=== PATIENT | female | born 1940 | race Caucasian/White ===

== ENCOUNTER 2018-01-15 05:44 | Emergency (ER) | payer MEDICARE, OTHER ==
[~2018-01-15] VITALS: Ht 160 cm; Wt 63.5 kg
[~2018-01-15 05:44] MED LIST: CARV12.52 PO; FURO20TA4 PO; LOSA-22 PO; MULT-182 PO; POTA8TAB3 PO; WARF2TAB57 PO
--- NOTE | 2018-01-15 06:06 | NUR ---
PT AMBULATORY TO ER BED 11 C/O RIGHT ANKLE PAIN X 5 DAYS S/P GLF 5 DAYS AGO. PT AOX3 FRENCH SPEAKING, SON AT BEDSIDE TO TRANSLATE. RR EVEN AND UNLABORED. NO SOB NOTED. NAD NOTED. NO NVD AT THIS TIME. PT GOWNED AND PLACED ON MONITOR WAITING FOR MD BROWN.
--- NOTE | 2018-01-15 06:13 | NUR ---
DR. JAEGER AT BEDSIDE FOR EVAL.
--- NOTE | 2018-01-15 07:07 | NUR ---
CALLED RADIOLOGY FOR FOOT XR. NO RESPONSE AT THIS TIME.
--- NOTE | 2018-01-15 07:16 | NUR ---
REPORT GIVEN TO MAMTA YOO FOR RICKIE.
[2018-01-15 07:39] VITALS: BP 148/72
--- NOTE | 2018-01-15 07:40 | NUR ---
Patient discharged to home in stable condition. Written and verbal after care instructions given. Patient verbalizes understanding of instruction.
== END 2018-01-15 07:39 | disposition home or self-care (01) ==
LOC: ER 05:49
DX: L03.115 Cellulitis of right lower limb (principal); I10 Essential (primary) hypertension; I48.91 Unspecified atrial fibrillation; M20.11 Hallux valgus (acquired), right foot; M77.31 Calcaneal spur, right foot; Z79.01 Long term (current) use of anticoagulants
CPT/HCPCS: 73630; 99284; A4606; Z7610

== ENCOUNTER 2019-09-23 00:28 | Emergency (ER) | payer MEDICARE, MEDICAID ==
[~2019-09-23] VITALS: Ht 152.4 cm; Wt 63.5 kg
[2019-09-23 01:28] VITALS: BP 115/62
[2019-09-23] MEDS ORDERED: LACTULOSE 10 G/15 ML UDC (PYXIS) ONE (01:37)
--- NOTE | 2019-09-23 01:46 | NUR ---
Patient discharged to home in stable condition. Rx and Written and verbal after care instructions given. Patient verbalizes understanding of instruction.
[2019-09-23] MEDS ORDERED: LACTULOSE 10 G/15 ML UDC (PYXIS) PO ONE (02:00)
== END 2019-09-23 01:47 | disposition home or self-care (01) ==
LOC: ER 00:32
DX: K59.00 Constipation, unspecified (principal); I10 Essential (primary) hypertension; I48.91 Unspecified atrial fibrillation; Z79.01 Long term (current) use of anticoagulants; Z79.899 Other long term (current) drug therapy
CPT/HCPCS: 74018

== ENCOUNTER 2019-09-29 23:02 | Emergency (ER) | payer MEDICARE, MEDICAID ==
[~2019-09-29] VITALS: Ht 160 cm; Wt 63.5 kg
--- NOTE | 2019-09-29 23:23 | NUR ---
XRAY AT BEDSIDE
[2019-09-29] MEDS ORDERED: LACTULOSE 10 G/15 ML UDC (PYXIS) ONE (23:24)
--- NOTE | 2019-09-29 23:25 | NUR ---
PT CAME IN W/ SON C/O CONSTIPATION 5x DAYS AFTER BEING PRESCRIBED DOCUSATE SODIUM. PT IS ABLE TO EAT, BUT VOMITED YESTERDAY 1X. SON AT BEDSIDE. AAOX4. NAD. NO SOB. CONNECTED TO MONITOR.
[2019-09-29] MEDS ORDERED: LACTULOSE 10 G/15 ML UDC (PYXIS) PO ONE (23:30)
--- NOTE | 2019-09-30 00:23 | NUR ---
PRESCRIPTION GIVEN TO PATIENT AND EXPLAINED TO PATIENT AND SON.
--- NOTE | 2019-09-30 00:28 | NUR ---
Patient discharged to home in stable condition. Written and verbal after care instructions given. Patient verbalizes understanding of instruction.
[2019-09-30 00:31] VITALS: BP 123/83
== END 2019-09-30 00:36 | disposition home or self-care (01) ==
LOC: ER 23:09
DX: K59.00 Constipation, unspecified (principal); I10 Essential (primary) hypertension; I48.91 Unspecified atrial fibrillation; Z79.899 Other long term (current) drug therapy; Z79.01 Long term (current) use of anticoagulants
CPT/HCPCS: 74018

== ENCOUNTER 2019-10-18 03:52 | Emergency (ER) | payer MEDICARE, MEDICAID ==
[~2019-10-18] VITALS: Ht 149.9 cm; Wt 63.5 kg
--- NOTE | 2019-10-18 04:11 | NUR ---
BIBSON C/C R HEAD LAC S/P GLF, DENIES LOC, BLEEDING NOTED, PT TAKEN TO CT
[2019-10-18] MEDS ORDERED: LIDOCAINE 1%-EPI 1:100,000 20 ML VIAL ONE (05:16)
--- NOTE | 2019-10-18 05:49 | NUR ---
Patient discharged to home in stable condition. Written and verbal after care instructions given. Patient verbalizes understanding of instruction.
[2019-10-18 05:50] VITALS: BP 126/64
== END 2019-10-18 05:50 | disposition home or self-care (01) ==
LOC: ER 03:52
DX: S05.41XA Penetrating wound of orbit with or without foreign body, right eye, initial encounter (principal); S09.8XXA Other specified injuries of head, initial encounter; I10 Essential (primary) hypertension; I48.91 Unspecified atrial fibrillation; Z98.890 Other specified postprocedural states; Z79.899 Other long term (current) drug therapy; Z79.01 Long term (current) use of anticoagulants; W07.XXXA Fall from chair, initial encounter; Y93.89 Activity, other specified; Y92.89 Other specified places as the place of occurrence of the external cause; Y99.8 Other external cause status
CPT/HCPCS: 12013; 70450; 99284; A6403; J3490

== ENCOUNTER 2019-10-23 22:14 | Emergency (ER) | payer MEDICARE, OTHER, MEDICAID ==
[~2019-10-23] VITALS: Ht 160 cm; Wt 62.1 kg
[2019-10-23 22:24] VITALS: BP 153/78
== END 2019-10-23 23:15 | disposition home or self-care (01) ==
LOC: ER 22:16
DX: S01.81XD Laceration without foreign body of other part of head, subsequent encounter (principal); I48.91 Unspecified atrial fibrillation; I10 Essential (primary) hypertension; Z98.890 Other specified postprocedural states; Z79.01 Long term (current) use of anticoagulants; Z79.899 Other long term (current) drug therapy; X58.XXXD Exposure to other specified factors, subsequent encounter

== ENCOUNTER 2019-11-17 22:00 | Inpatient (IN) | payer MEDICARE, MEDICAID ==
[~2019-11-17] VITALS: Ht 160 cm; Wt 72.1 kg
[2019-11-17] MEDS ORDERED: hydrOXYzine HCL INJ 50 MG/ML VIAL IM ONE (22:30)
--- NOTE | 2019-11-17 22:40 | NUR ---
BIBF. C/O "B L E SWELING. +ITCH. +PAIN"-SOB AOX4. VSS TO ER BED 1, TO BE SEEN BY
[2019-11-17 22:46] LABS: BASOPHILS # (AUTO) 0.1 /CMM (0.0-0.2); BASOPHILS % (AUTO) 1.3 % (0.0-2.0); EOSINOPHILS % (AUTO) 1.5 % (0.0-6.0); HEMATOCRIT 21 % (33-45); LYMPHOCYTES # (AUTO) 0.7 /CMM (0.8-4.8); LYMPHOCYTES % (AUTO) 10.1 % (20.0-44.0); MEAN CORPUSCULAR HGB CONC 30 g/dl (31.0-36.0); MEAN CORPUSCULAR VOLUME 67 fL (82-100); MONOCYTES # (AUTO) 0.7 /CMM (0.1-1.30); MONOCYTES % (AUTO) 10.3 % (2.0-12.0); NEUTROPHILS # (AUTO) 5.4 /CMM (1.8-8.9); NEUTROPHILS % (AUTO) 76.8 % (43.0-81.0); PLATELET COUNT (AUTO) 333 /CMM (150-450); RED BLOOD CELL COUNT(AUTO) 3.12 MIL/uL (4.0-5.2)
[2019-11-17] MEDS ORDERED: hydrOXYzine 10 MG TABLET ONE (22:49)
[2019-11-17 22:50] LABS: HEMOGLOBIN 6.3 g/dL (11.5-14.8)
[2019-11-17 22:54] LABS: CALCIUM, SERUM 9.6 mg/dL (8.5-10.1); CARBON DIOXIDE 35 mmol/L (21-32); CHLORIDE 102 mmol/L (98-107); CREATININE 1.7 mg/dL (0.6-1.3); GLUCOSE 125 mg/dL (74-106); POTASSIUM 2.9 mmol/L (3.5-5.1); SODIUM SERUM 144 mmol/L (136-145); UREA NITROGEN, BLOOD 50 mg/dL (7-18)
[2019-11-17] MEDS ORDERED: hydrOXYzine 10 MG TABLET PO ONE (23:00)
[2019-11-17 23:06] LABS: ALANINE AMINOTRANSFERASE 13 U/L (12-78); ALBUMIN 2.9 g/dL (3.4-5.0); ALKALINE PHOSPHATASE 68 U/L (46-116); ASPARTATE AMINOTRANSFERASE 19 U/L (15-37); B-TYPE NATRIURETIC PEPTIDE 4480 PG/ML (0-125); BILIRUBIN,DIRECT 0.1 mg/dL (0.0-0.2); BILIRUBIN,TOTAL 0.3 mg/dL (0.2-1.0); TOTAL PROTEIN, SERUM 6.5 g/dL (6.4-8.2)
[2019-11-17] MEDS ORDERED: MAGNESIUM HYDROXIDE 30 ML UDC PO PRN (23:30)
[2019-11-17] MEDS ORDERED: HYDROCODONE/APAP 5/325MG 1 EACH TABLET PO PRN (23:30)
[2019-11-17] MEDS ORDERED: ONDANSETRON HCL/PF 4 MG/2 ML VIAL IVP PRN (23:30)
[2019-11-17] MEDS ORDERED: MAG HYDROX/AL HYDROX/SIMETH 30 ML UDC PO PRN (23:30)
[2019-11-17] MEDS ORDERED: PANTOPRAZOLE 40 MG VIAL IV ONE (23:30)
[2019-11-17] MEDS ORDERED: IV NS 0.9% 1,000 ML IV PRN (23:30)
[2019-11-17] MEDS ORDERED: ZOLPIDEM TARTRATE 5 MG TABLET PO PRN (23:30)
[2019-11-17] MEDS ORDERED: Z GUARD REMEDY 2 OZ OINT TP PRN (23:30)
[2019-11-17 23:58] LABS: IRON, SERUM 16 ug/dl (50-175); TOTAL IRON BINDING CAPACITY 440 ug/dl (250-450)
[2019-11-18] VITALS (10 sets, daily range): BP systolic 110–168; BP diastolic 56–76
[2019-11-18] MEDS ORDERED: diphenhydrAMINE HCL 50 MG/ML VIAL ONE
[2019-11-18] MEDS ORDERED: LORAZEPAM INJ 2 MG/ML VIAL ONE (00:54)
[2019-11-18 00:58] LABS: EOSINOPHILS % (MANUAL) 2 % (0-4); LYMPHOCYTES % (MANUAL) 10 % (16-48); MONOCYTES % (MANUAL) 8 % (0-11.0); NEUTROPHILS % (MANUAL) 80 (42-76)
[2019-11-18] MEDS ORDERED: LORAZEPAM INJ 2 MG/ML VIAL IV PRN (01:00)
--- NOTE | 2019-11-18 01:15 | NUR ---
SAMPLE PREP TECHNICIANSVP RESEARCH & EBUSINESS OPERATIONS NOTES RECEIVED FROM ER THIS 79 Y.O. FEMALE,ALERT,ORIENTED X3,TAMAZIGHT SPEAKING,ACCOMPANIED BY SON MINDY,WITH CHIEF COMPLAINTS OF SOB,ITCHINESS,SWELLING WITH SLIGHT REDNESS ON BOTH LOWER EXTREMITIES.BOTH LOWER LEG ELEVATED ON PILLOWS.DIAGNOSIS OF SEVERE ANEMIA,WITH H/H 6.3.WITH ORDER TO TRANSFUSE 1 UNIT OF PRBC.CONSENT SIGNED BY SON MINDY.FALL PRECAUTION OBSERVED,CALL LIGHT IN REACH,NEEDS ANTICIPATED.
--- NOTE | 2019-11-18 01:19 | NUR ---
PT TRANSFERED TO 308-1
[2019-11-18] MEDS ORDERED: FUROSEMIDE 40 MG/4 ML VIAL IV SCH (01:30)
--- NOTE | 2019-11-18 01:51 | NUR ---
MS RN NOTES STARTED ON IVF NS AT 50ML/HR RATE ORDERED.
--- NOTE | 2019-11-18 01:51 | NUR ---
FILTER CHANGING TECHNICIAN NOTES AFIB 66 ON TELE MONITOR.WITH KNOWN HX OF AFIB CHF,ABLATION 2012
[2019-11-18] MEDS ORDERED: PANTOPRAZOLE 40 MG VIAL ONE (01:55)
--- NOTE | 2019-11-18 01:56 | NUR ---
POULTRY CULLER NOTES STARTED ON PROTONIX 40MG IV ORDERED
--- NOTE | 2019-11-18 02:07 | NUR ---
THIRD MATE NOTES STARTED ON LASIX 40MG IV FOR EDEMA,CHF
--- NOTE | 2019-11-18 02:33 | NUR ---
ASSISTANT DIRECTOR OF FINANCIAL AID NOTES STARTED WITH BLOOD TRANSFUSION 1 UNIT OF PRBC 308ML AT 75ML/HR RATE TO START WITH.
[2019-11-18] MEDS ORDERED: diphenhydrAMINE HCL 25 MG CAPSULE PO PRN (03:30)
--- NOTE | 2019-11-18 03:56 | NUR ---
CHANNEL LIP WETTER NOTES C/O ITCHINESS,MEDICATED WITH BENADRYL 25MG PO ORDERED.
[2019-11-18] MEDS ORDERED: ALLO100T PO (05:02)
[2019-11-18] MEDS ORDERED: WARF3TAB59 PO (05:02)
[2019-11-18] MEDS ORDERED: LOSA25TA27 PO (05:02)
[2019-11-18] MEDS ORDERED: FURO-144 PO (05:02)
[2019-11-18 06:24] LABS: BASOPHILS # (AUTO) 0.1 /CMM (0.0-0.2); BASOPHILS % (AUTO) 0.8 % (0.0-2.0); EOSINOPHILS % (AUTO) 1.4 % (0.0-6.0); HEMATOCRIT 22 % (33-45); LYMPHOCYTES # (AUTO) 0.6 /CMM (0.8-4.8); LYMPHOCYTES % (AUTO) 8.6 % (20.0-44.0); MEAN CORPUSCULAR HGB CONC 31 g/dl (31.0-36.0); MEAN CORPUSCULAR VOLUME 69 fL (82-100); MONOCYTES # (AUTO) 0.7 /CMM (0.1-1.30); MONOCYTES % (AUTO) 10.1 % (2.0-12.0); NEUTROPHILS # (AUTO) 5.8 /CMM (1.8-8.9); NEUTROPHILS % (AUTO) 79.1 % (43.0-81.0); PLATELET COUNT (AUTO) 297 /CMM (150-450); RED BLOOD CELL COUNT(AUTO) 3.25 MIL/uL (4.0-5.2); WHITE BLOOD COUNT (AUTO) 7.4 K/uL (4.3-11.0)
--- NOTE | 2019-11-18 06:31 | NUR ---
TAG PRESS OPERATOR NOTES SLEEPING AT THIS TIME,BLOOD TRANSFUSION COMPLETED.NO ADVERSE SIDE EFFECTS NOTED,NO SOB.ORTHOSTATIC VITAL SIGN TAKEN ONLY SUPINE AND SITTING.UNABLE TO STAND UP.IVF NS AT 50ML/HR RATE INFUSING AT THIS TIME.KEPT BILATERAL; LOWER EXTREMITIES ELEVATED.IN NO ACUTE DISTRESS.WILL ENDORSE TO DAY NURSE FOR RICKIE.
--- NOTE | 2019-11-18 06:40 | NUR ---
CLINICAL INFORMATION SYSTEMS DIRECTOR NOTES REPORTED BY CHANDANA FROM BLOOD BANK,LATEST H/H 7.0,HOSPITALIST FABY SY MADE AWARE,AWAITING TO CALL BACK.
[2019-11-18 06:41] LABS: CHOLESTEROL 112 mg/dL (<200); HDL CHOLESTEROL 69 mg/dL (40-60); LDL 39 mg/dL (0-99); TRIGLYCERIDES 51 mg/dL (30-150)
[2019-11-18 06:59] LABS: CALCIUM, SERUM 9.7 mg/dL (8.5-10.1); CARBON DIOXIDE 29 mmol/L (21-32); CHLORIDE 102 mmol/L (98-107); CREATININE 1.6 mg/dL (0.6-1.3); GLUCOSE 113 mg/dL (74-106); MAGNESIUM 2.3 mg/dL (1.8-2.4); SODIUM SERUM 145 mmol/L (136-145); UREA NITROGEN, BLOOD 48 mg/dL (7-18)
[2019-11-18 07:19] LABS: POTASSIUM 2.6 mmol/L (3.5-5.1)
--- NOTE | 2019-11-18 08:00 | NUR ---
TELE/RN NOTES RECEIVED PATIENT ALERT AND ORIENTED X2 RESTING IN BED COMFORTABLY. DENIES PAIN AT THIS TIME. NO SHORTNESS OF BREATH NOTED. HL AT LEFT FA #20 PATENT AND INTACT. WITH IVF OF NS 1L AT 50ML/L INFUSING WELL. WILL CONTINUE TO MONITOR.
[2019-11-18] MEDS: POTASSIUM CHLORIDE 20 MEQ TAB.PRT.SR PO SCH ×3 (08:21→10:39)
[2019-11-18] MEDS: PANTOPRAZOLE 40 MG TABLET.DR PO SCH (08:21)
--- NOTE | 2019-11-18 08:58 | NUR ---
TELE/RN NOTES POST VOIDAL BLADDER SCAN [address] MARLEY IS MADE AWARE AND WAITING FOR ORDER.
--- NOTE | 2019-11-18 11:01 | NUR ---
TELE/RN NOTES RECEIVED ORDER FROM DR. MARLEY OF AARON CATHETER INSERTION 1000ML CLEAR YELLOW URINE IS DRAINED.
[2019-11-18 12:05] LABS: EOSINOPHILS % (MANUAL) 1 % (0-4); LYMPHOCYTES % (MANUAL) 14 % (16-48); MONOCYTES % (MANUAL) 10 % (0-11.0); NEUTROPHILS % (MANUAL) 75 (42-76)
[2019-11-18] MEDS: CEFTRIAXONE 1 G in IV D5W 50 ML IV SCH (13:50)
[2019-11-18] MEDS: SOD FERRIC GLUC 125 MG in IV NS 0.9% 100 ML IV SCH (15:44)
[2019-11-18 15:45] LABS: CALCIUM, SERUM 9.2 mg/dL (8.5-10.1); CARBON DIOXIDE 30 mmol/L (21-32); CHLORIDE 104 mmol/L (98-107); CREATININE 1.7 mg/dL (0.6-1.3); GLUCOSE 117 mg/dL (74-106); POTASSIUM 3.1 mmol/L (3.5-5.1); SODIUM SERUM 145 mmol/L (136-145); UREA NITROGEN, BLOOD 44 mg/dL (7-18)
--- NOTE | 2019-11-18 17:20 | NUR ---
TELE/RN NOTE DR GARAY IS MADE AWARE TO SEE THE PATIENT PER DR MARLEY.
--- NOTE | 2019-11-18 18:49 | NUR ---
TELE/RN CLOSING NOTES PATIENT IS RESTING IN BED COMFORTABLY. DENIES PAIN AT THIS TIME. NO APPARENT RESPIRATORY DISTRESS NOTED. HL AT LEFT FOREARM GAUGE 20 PATENT AND INTACT. KEPT PATIENT CLEAN AND DRY .BED IS IN LOW POSITION SIDE RAILS UP X 2. ADMINISTERED ALL DUE MEDS.CALL LIGHTS WITHIN REACH. WILL ENDORSED TO STEEL MOLDER.
--- NOTE | 2019-11-18 20:00 | NUR ---
TELE/RN OPENING NOTES RECEIVED PATIENT IN BED RESTING COMFORTABLY, RESPIRATIONS EVEN AND UNLABORED, ABLE TO HAVE GOOD EYE CONTACT, SKIN WARM TO TOUCH, FAMILY INVOLVE, TELE SR TO AFIB, BLE SWOLLEN WITH AARON DRAINING YELLOW COLORED URINE DUE TO URINARY RETENTION, REQUIRE ASSISTANCE, LEFT FOREARM GAUGE 20 POTASSIUM WAS REPLACED, AND TO COLLECT OB STOOL , WITH ORDER TO GIVE MOM . WILL FOLLOW UP BED LOCKED, CALL LIGHTS WITHIN REACH. WILL MONITOR.
--- NOTE | 2019-11-18 23:11 | NUR ---
tele/rn notes md aware about hgb level of 7 to check and monitor occult blood, mionitor any bleeding for now and give MOM.
[2019-11-19] VITALS (7 sets, daily range): BP systolic 122–152; BP diastolic 56–80
[2019-11-19] MEDS: ACETAMINOPHEN 325 MG TABLET PO PRN (02:38)
--- NOTE | 2019-11-19 02:59 | NUR ---
TELE/RN NOTES PATIENT WITH LOW GRADE FEVER OF 99.1 DEG F, TYLENOL 650 MG PO GIVEN, WITH ORDER FOR MOM FOR BOWEL MANAGEMENT AND TO COLLECT OCCULT STOOL.MONITOIRNG FOR ANY S/S OF BLEEDING.
[2019-11-19 06:19] LABS: BASOPHILS # (AUTO) 0.1 /CMM (0.0-0.2); BASOPHILS % (AUTO) 1.5 % (0.0-2.0); EOSINOPHILS % (AUTO) 2.3 % (0.0-6.0); HEMATOCRIT 24 % (33-45); HEMOGLOBIN 7.4 g/dL (11.5-14.8); LYMPHOCYTES % (AUTO) 12.3 % (20.0-44.0); MEAN CORPUSCULAR HGB CONC 31 g/dl (31.0-36.0); MEAN CORPUSCULAR VOLUME 69 fL (82-100); MONOCYTES # (AUTO) 0.7 /CMM (0.1-1.30); MONOCYTES % (AUTO) 8.5 % (2.0-12.0); NEUTROPHILS # (AUTO) 6.1 /CMM (1.8-8.9); NEUTROPHILS % (AUTO) 75.4 % (43.0-81.0); PLATELET COUNT (AUTO) 295 /CMM (150-450); WHITE BLOOD COUNT (AUTO) 8.1 K/uL (4.3-11.0)
--- NOTE | 2019-11-19 06:24 | NUR ---
308-1 TELE/RN PATIENT ABLE TO SLEEP DURING THE NIGHT, REPOSITIONED AND TURNED, MONITORED FOR ANY S/S OF BLEEDING. SKIN WARM TO TOUCH, IV SITE ON LFA PATENT. KEPT COMFORTABLE.
[2019-11-19 06:30] LABS: CALCIUM, SERUM 9.2 mg/dL (8.5-10.1); CARBON DIOXIDE 31 mmol/L (21-32); CHLORIDE 104 mmol/L (98-107); CREATININE 1.6 mg/dL (0.6-1.3); GLUCOSE 108 mg/dL (74-106); MAGNESIUM 2.2 mg/dL (1.8-2.4); PHOSPHORUS 2.8 mg/dL (2.5-4.9); POTASSIUM 3.5 mmol/L (3.5-5.1); SODIUM SERUM 144 mmol/L (136-145); UREA NITROGEN, BLOOD 42 mg/dL (7-18)
--- NOTE | 2019-11-19 08:07 | NUR ---
TELE/RN OPENING NOTES RECEIVE PATIENT RESTING IN BED COMFORTABLY. DENIES PAIN AT THIS TIME. NO APPARENT RESPIRATORY DISTRESS NOTED. ON TELE MONITOR IN PLACE WITH READING OF AFIB 72. HL AT LEFT FOREARM GAUGE 20 PATENT AND INTACT.BED IS IN LOW POSITION SIDE RAILS UP X 2.CALL LIGHTS WITHIN REACH. WILL CONTINUE TO MONITOR.
[2019-11-19] MEDS: PANTOPRAZOLE 40 MG TABLET.DR PO SCH (08:44)
[2019-11-19 12:56] LABS: OCCULT BLOOD STOOL NEGATIVE (NEGATIVE)
[2019-11-19] MEDS: CEFTRIAXONE 1 G in IV D5W 50 ML IV SCH ×2 (13:05→14:17)
[2019-11-19] MEDS: SOD FERRIC GLUC 125 MG in IV NS 0.9% 100 ML IV SCH (14:25)
--- NOTE | 2019-11-19 18:57 | NUR ---
308 MS RN CLOSING NOTES PATIENT IN BED RESTING AT MODERATE HIGH BACKREST POSITION. A/O X3. ABLE TO MAKE NEEDS KNOWN. ON PRN SUPPLEMENTAL 02 VIA N/C AT 2LPM, TOLERATING WELL WITH NO SOB NOTED AT THIS TIME. IV SL ON LFA G# PATENT, INTACT AND FLUSHES WELL. AARON IN PLACE AND ACTIVELY DRAININGCLEAR YELOW URINE OURPUT AARON CARE DONE. KEPT PATIENT CLEAN AND DRY. ALL NEEDS AN CARE ATTENDED WELL. BED IS IN LOW POSITION, SIDE RAILS UP X 2. CALL LIGHTS WITHIN REACH. WILL ENDORSED TO PHLEBOTOMY PROGRAM COORDINATOR NURSE FOR RICKIE
--- NOTE | 2019-11-19 19:30 | NUR ---
MS RN OPENING NOTES PATIENT SLEEPING UPON ARRIVAL, EASY TO AWAKEN. A/O X 4. ON 2L NC. NO S/S OF ACUTE RESPIRATORY DISTRESS AND NO COMPLAINTS OF PAIN AT THIS TIME. AARON CATH PRESENT WITH 100 CC URINE, CLEAR & YELLOW. IV PRESENT ON LEFT FOREARM, SIZE 20, INTACT & PATENT, HEP LOCKED. BED LOCKED, SEMI-LEVINE'S POSITION, SIDE RAILS X2, CALL LIGHT WITHIN REACH. WILL CONTINUE TO MONITOR.
[2019-11-20] VITALS (7 sets, daily range): BP systolic 125–167; BP diastolic 60–80
[2019-11-20] MEDS ORDERED: FUROSEMIDE 40 MG/4 ML VIAL IV ONE (01:30)
[2019-11-20 06:54] LABS: BASOPHILS # (AUTO) 0.1 /CMM (0.0-0.2); BASOPHILS % (AUTO) 0.7 % (0.0-2.0); EOSINOPHILS % (AUTO) 2.8 % (0.0-6.0); HEMATOCRIT 23 % (33-45); LYMPHOCYTES # (AUTO) 0.8 /CMM (0.8-4.8); LYMPHOCYTES % (AUTO) 9.4 % (20.0-44.0); MEAN CORPUSCULAR HGB CONC 30 g/dl (31.0-36.0); MEAN CORPUSCULAR VOLUME 70 fL (82-100); MONOCYTES # (AUTO) 0.8 /CMM (0.1-1.30); MONOCYTES % (AUTO) 8.8 % (2.0-12.0); NEUTROPHILS # (AUTO) 6.8 /CMM (1.8-8.9); NEUTROPHILS % (AUTO) 78.3 % (43.0-81.0); PLATELET COUNT (AUTO) 267 /CMM (150-450); RED BLOOD CELL COUNT(AUTO) 3.26 MIL/uL (4.0-5.2); WHITE BLOOD COUNT (AUTO) 8.6 K/uL (4.3-11.0)
[2019-11-20 07:04] LABS: HEMOGLOBIN 6.9 g/dL (11.5-14.8)
--- NOTE | 2019-11-20 07:05 | NUR ---
MS RN NOTES CRITICAL LAB VALUE RECEIVED FROM CAROL HARPER. YOSSI NOTIFIED OF LAB VALUES.
[2019-11-20 07:08] LABS: CALCIUM, SERUM 9.1 mg/dL (8.5-10.1); CREATININE 1.3 mg/dL (0.6-1.3); MAGNESIUM 2.3 mg/dL (1.8-2.4); PHOSPHORUS 2.8 mg/dL (2.5-4.9); POTASSIUM 3.5 mmol/L (3.5-5.1)
--- NOTE | 2019-11-20 07:43 | NUR ---
MS RN NOTES PATIENT SLEEPING IN BED, EASY TO AWAKEN. A/O X 4. ON 2L NC. NO S/S OF ACUTE RESPIRATORY DISTRESS AND NO COMPLAINTS OF PAIN AT THIS TIME. IV PRESENT ON LEFT FA, SIZE 20, INTACT & PATENT, HEP LOCKED. AARON CATH PRESENT WITH 200 CC OF URINE, CLEAR AND YELLOW. BED LOCKED, SEMI-LEVINE'S POSITION, SIDE RAILS X2, CALL LIGHT WITHIN REACH. WILL ENDORSE TO DAY SHIFT NURSE TO FOLLOW PLAN OF CARE.
[2019-11-20 08:53] LABS: EOSINOPHILS % (MANUAL) 2 % (0-4); LYMPHOCYTES % (MANUAL) 10 % (16-48); MONOCYTES % (MANUAL) 5 % (0-11.0); NEUTROPHILS % (MANUAL) 83 (42-76)
[2019-11-20] MEDS: PANTOPRAZOLE 40 MG TABLET.DR PO SCH (09:50)
[2019-11-20 11:28] LABS: ABG OXYGEN SATURATION 93.6 % (92.0-98.5); ABG PCO2 40.9 mmHg (35.0-45.0); ABG PH 7.482 (7.350-7.450); ABG PO2 69.1 mmHg (75.0-100.0); AaDO2 82.3 mmHg; COHb 0.6 % (0.5-1.5); MetHb 0.4 % (0.0-1.5); O2Hb 92.7 % (94.0-97.0); SITE, ABG Left Radial
[2019-11-20] MEDS: ACETAMINOPHEN 325 MG TABLET PO PRN (13:45)
[2019-11-20 14:08] LABS: PTH, INTACT 58 pg/mL (15-65)
[2019-11-20] MEDS: CEFTRIAXONE 1 G in IV D5W 50 ML IV SCH (16:56)
--- NOTE | 2019-11-20 18:00 | NUR ---
abg's done and dr. walton aware of results.ua sent as per orders.had one unit of blood tolerated well.iv lt. arm infiltrated,removed and restarted rt forearm angio#20.
[2019-11-20] MEDS: SOD FERRIC GLUC 125 MG in IV NS 0.9% 100 ML IV SCH (18:08)
[2019-11-20] MEDS: FUROSEMIDE 40 MG TABLET PO SCH (18:14)
--- NOTE | 2019-11-20 18:30 | NUR ---
dr. guerrero in and gave orders for egd tomorrow.pt. to be npo after breakfast.son in to visit most of the day.
--- NOTE | 2019-11-20 19:30 | NUR ---
MS RN OPENING NOTES PATIENT AWAKE IN BED UPON ARRIVAL. FAMILY MEMBER AT THE BEDSIDE. A/O X4. ON 2L NC. NO S/S OF ACUTE RESPIRATORY DISTRESS AND NO COMPLAINTS OF PAIN AT THIS TIME. AARON CATH PRESENT WITH 350 CC URINE PRESENT, CLEAR & YELLOW. IV ON RIGHT FOREARM, SIZE 20, INTACT & PATENT. BED LOCKED, SEMI-LEVINE'S POSITION, SIDE RAILS X2, CALL LIGHT WITHIN REACH. WILL CONTINUE TO MONITOR.
[2019-11-20 19:52] LABS: BILIRUBIN,URINE NEGATIVE (NEGATIVE); BLOOD, URINE LARGE Ery/uL (NEGATIVE); COLOR,URINE YELLOW (YELLOW); KETONES,URINE NEGATIVE (NEGATIVE); LEUKOCYTE ESTERASE ,URINE TRACE (NEGATIVE); NITRITE, URINE NEGATIVE (NEGATIVE); PH,URINE 7.5 (5.0-8.0); PROTEIN,URINE TRACE mg/dl (NEGATIVE); UGLUCOSE NEGATIVE (NEGATIVE); UROBILINOGEN,URINE 0.2 EU/dL (0.2)
[2019-11-20 20:03] LABS: CREATININE, URINE 95.2 MG/DL (30.0-125.0)
[2019-11-20 20:12] LABS: APPEARANCE,URINE HAZY (CLEAR)
[2019-11-20 20:13] LABS: BACTERIA,URINE Few /HPF (None Seen); RBC,URINE 21-50 /HPF (0-2); SQUAMOUS EPITHELIAL CELL,UR Few /HPF (None Seen)
[2019-11-20] MEDS: PANTOPRAZOLE 40 MG VIAL IV SCH (20:29)
[2019-11-20 20:48] LABS: EOSINOPHIL,URINE None Seen
--- NOTE | 2019-11-20 22:37 | NUR ---
MS RN NOTES SPOKE TO PATIENT'S SON, MINDY, ABOUT CONSENT FORM FOR EGD AT 2230. STATED THAT HE IS GOING TO SIGN THE CONSENT TOMORROW AFTERNOON.
[2019-11-21 06:52] LABS: BASOPHILS # (AUTO) 0.1 /CMM (0.0-0.2); BASOPHILS % (AUTO) 0.6 % (0.0-2.0); HEMATOCRIT 27 % (33-45); HEMOGLOBIN 8.2 g/dL (11.5-14.8); LYMPHOCYTES # (AUTO) 0.9 /CMM (0.8-4.8); LYMPHOCYTES % (AUTO) 9.9 % (20.0-44.0); MEAN CORPUSCULAR HGB CONC 31 g/dl (31.0-36.0); MEAN CORPUSCULAR VOLUME 72 fL (82-100); MONOCYTES # (AUTO) 0.8 /CMM (0.1-1.30); MONOCYTES % (AUTO) 9.1 % (2.0-12.0); NEUTROPHILS % (AUTO) 77.4 % (43.0-81.0); PLATELET COUNT (AUTO) 271 /CMM (150-450); RED BLOOD CELL COUNT(AUTO) 3.69 MIL/uL (4.0-5.2)
--- NOTE | 2019-11-21 07:17 | NUR ---
MS RN CLOSING NOTES PATIENT SLEEPING IN BED, EASY TO AWAKEN. A/O X4. ON 2L NC. NO S/S OF SOB OR COMPLAINTS OF PAIN AT THIS TIME. IV PRESENT ON RIGHT FA, SIZE 20, INTACT & PATENT, HEP LOCKED. AARON CATH PRESENT. BED LOCKED, SEMI-LEVINE'S POSITION, SIDE RAILS X2, CALL LIGHT WITHIN REACH. WILL ENDORSE TO DAY SHIFT NURSE TO FOLLOW PLAN OF CARE.
[2019-11-21 07:20] LABS: ALBUMIN 2.5 g/dL (3.4-5.0); BILIRUBIN,TOTAL 0.4 mg/dL (0.2-1.0); CALCIUM, SERUM 9.2 mg/dL (8.5-10.1); CREATININE 1.1 mg/dL (0.6-1.3); PHOSPHORUS 2.8 mg/dL (2.5-4.9); POTASSIUM 3.4 mmol/L (3.5-5.1); TOTAL PROTEIN, SERUM 5.7 g/dL (6.4-8.2)
--- NOTE | 2019-11-21 08:12 | NUR ---
MS RN NOTES PATIENT RECEIVED RESTING INSIDE ROOM. AWAKE, A/O X 4. VERBALLY RESPONSIVE AND RESPONDS TO VERBAL AND TACTILE STIMULI. NO ACUTE DISTRESS. POTASSIUM LEVEL 3.4, DR SEGUNDO MADE AWARE WITH ORDER FOR KCL 20MEQ PO X 1, NOTED AND CARRIED OUT. PATIENT MADE AWARE AND VERBALIZED UNDERSTANDING. PATIENT WILL BE NPO AFTER BREAKFAST, ANTICIPATING EGD AT 1800. WILL CONTINUE TO MONITOR. BED LOCKED AND IN LOW POSITION. BILATERAL UPPER SIDE RAILS UP AND LOCKED. CALL LIGHT WITHIN EASY REACH
[2019-11-21 08:22] VITALS: BP 143/74
[2019-11-21] MEDS ORDERED: POTASSIUM CHLORIDE 20 MEQ TAB.PRT.SR PO ONE (08:30)
[2019-11-21] MEDS: PANTOPRAZOLE 40 MG VIAL IV SCH ×2 (08:45→20:45)
[2019-11-21] MEDS: FUROSEMIDE 40 MG TABLET PO SCH (08:45)
[2019-11-21] MEDS: ALLOPURINOL 100 MG TABLET PO SCH (08:46)
[2019-11-21] MEDS: LOSARTAN/HCTZ 50-12.5MG/ 1 EA TABLET PO SCH (10:01)
[2019-11-21] MEDS ORDERED: CEFTRIAXONE 1 G in IV D5W 50 ML IV SCH (11:30)
[2019-11-21] MEDS: CEFTRIAXONE 1 G in IV D5W 50 ML IV SCH (12:56)
[2019-11-21] MEDS: SOD FERRIC GLUC 125 MG in IV NS 0.9% 100 ML IV SCH (15:24)
[2019-11-21] MEDS ORDERED: ANESTHESIA TRAY IN PYXIS 1 EA TRAY MC ONE (17:27)
--- NOTE | 2019-11-21 18:01 | NUR ---
MS RN NOTES PATIENT TAKEN BY SURGICAL STAFF TO OR. LEFT VIA HOSPITAL BED. NO ACUTE DISTRESS. NO CHANGES IN LOC. WILL ENDORSE TO INCOMING SHIFT FOR RICKIE.
[2019-11-21 18:45] VITALS: BP 128/73
[2019-11-21 19:30] VITALS: BP 148/60
--- NOTE | 2019-11-21 19:30 | NUR ---
MS RN NOTES PATIENT IN BED, AWAKE, ALERT AND ORIENTED X 4. BREATHING EVEN AND UNLABORED ON NC. DENIES ACUTE PAIN, NO ACUTE RESPIRATORY DISTRESS. IV ON R FA 20G SL, CLEAN DRY, AND INTACT. SHOWS NO SIGNS OF INFILTRATION, NO REDNESS. SAFETY PRECAUTION IN PLACE. BED IN LOWEST POSITION, LOCKED, AND CALL LIGHT WITHIN REACH. WILL CONTINUE TO MONITOR.
[2019-11-21 20:00] VITALS: BP 148/60
[2019-11-22 06:16] LABS: BASOPHILS # (AUTO) 0.1 /CMM (0.0-0.2); BASOPHILS % (AUTO) 0.7 % (0.0-2.0); EOSINOPHILS % (AUTO) 2.8 % (0.0-6.0); HEMATOCRIT 26 % (33-45); HEMOGLOBIN 8.3 g/dL (11.5-14.8); LYMPHOCYTES # (AUTO) 0.7 /CMM (0.8-4.8); LYMPHOCYTES % (AUTO) 9.2 % (20.0-44.0); MEAN CORPUSCULAR HGB CONC 32 g/dl (31.0-36.0); MEAN CORPUSCULAR VOLUME 72 fL (82-100); MONOCYTES # (AUTO) 0.8 /CMM (0.1-1.30); NEUTROPHILS # (AUTO) 6.2 /CMM (1.8-8.9); NEUTROPHILS % (AUTO) 77.3 % (43.0-81.0); PLATELET COUNT (AUTO) 258 /CMM (150-450); WHITE BLOOD COUNT (AUTO) 8.1 K/uL (4.3-11.0)
--- NOTE | 2019-11-22 06:44 | NUR ---
MS RN NOTES PATIENT IN BED, ASLEEP ALERT AND ORIENTED X 3. BREATHING EVEN AND UNLABORED ON 2L NC. DENIES ACUTE PAIN, NO ACUTE RESPIRATORY DISTRESS. IV ON HAND 22G SL, CLEAN DRY, AND INTACT. SHOWS NO SIGNS OF INFILTRATION, NO REDNESS. ALL DUE MEDICATIONS GIVEN. SAFETY PRECAUTION IN PLACE. BED IN LOWEST POSITION, LOCKED, AND CALL LIGHT WITHIN REACH. WILL ENDORSE TO ONCOMING NURSE
[2019-11-22 07:00] LABS: CREATININE 1.1 mg/dL (0.6-1.3); POTASSIUM 3.5 mmol/L (3.5-5.1)
--- NOTE | 2019-11-22 07:54 | NUR ---
MS RN NOTES PATIENT RECEIVED RESTING INSIDE ROOM. AWAKE, A/O X 4. NO ACUTE DISTRESS. NO CHANGES IN LOC NOTED. AARON CATH IN PLACE WITH CLEAR YELLOW OUTPUT NOTED IN COLLECTING BAG. NO C/O PAIN OR DISCOMFORT. SAFETY PRECAUTIONS IN PLACE. WILL CONTINUE TO MONITOR. BED LOCKED AND IN LOW POSITION. BILATERAL UPPER SIDE RAILS UP AND LOCKED. CALL LIGHT WITHIN EASY REACH
[2019-11-22] MEDS ORDERED: ENOXAPARIN SODIUM 80 MG/0.8 ML DISP.SYRIN SQ ONE (08:00)
[2019-11-22 08:13] LABS: *SPE ALBUMIN 2.6 g/dL (2.9-4.4); *SPE ALPHA-1-GLOBULIN 0.3 g/dL (0.0-0.4); *SPE ALPHA-2-GLOBULIN 0.7 g/dL (0.4-1.0); *SPE BETA GLOBULIN 0.9 g/dL (0.7-1.3); *SPE GLOBULIN, TOTAL 2.6 g/dL (2.2-3.9); *SPE M-SPIKE Not Observed g/dL (Not Observed); *SPEGAMMA GLOBULIN 0.7 g/dL (0.4-1.8)
[2019-11-22 08:17] VITALS: BP 130/82
[2019-11-22] MEDS ORDERED: WARFARIN SODIUM 5 MG TABLET PO ONE (08:30)
[2019-11-22] MEDS: FUROSEMIDE 40 MG TABLET PO SCH (09:57)
[2019-11-22] MEDS: PANTOPRAZOLE 40 MG VIAL IV SCH (09:58)
[2019-11-22] MEDS: ALLOPURINOL 100 MG TABLET PO SCH (09:58)
[2019-11-22 10:00] VITALS: BP 130/82
[2019-11-22] MEDS: LOSARTAN/HCTZ 50-12.5MG/ 1 EA TABLET PO SCH (10:00)
--- NOTE | 2019-11-22 10:20 | NUR ---
MS RN NOTES WITH ORDER FROM MD TO MICKEY AARON. PATIENT MADE AWARE AND VERBALIZED UNDERSTANDING. ORDER NOTED AND CARRIED OUT. WILL CONTINUE TO MONITOR
[2019-11-22] MEDS: CEFTRIAXONE 1 G in IV D5W 50 ML IV SCH (12:39)
--- NOTE | 2019-11-22 13:38 | NUR ---
MS RN NOTES PATIENT ABLE TO URINATE WITHOUT DIFFICULTY. CLEARED TO DISCHARGE HOME BY HOSPITALIST. DISCHARGE INSTRUCTIONS AND EDUCATION PROVIDED AND PATIENT VERBALIZED UNDERSTANDING. ALL BELONGINGS COMPLETE ON DISCHARGE, NO REPORT OF MISSING INVENTORY. IV REMOVED, TIP INTACT, PRESSURE DRESSING PLACED ON SITE. STRONGLY EMPHASIZED TO PATIENT AND SON NOT TO TAKE COUMADIN UNTIL TOMORROW COUMADIN WAS ADMINISTERED THIS MORNING ALREADY AND BOTH VERBALIZED UNDERSTANDING. PATIENT LEFT UNIT STABLE, NO ACUTE DISTRESS. NO C/O PAIN OR DISCOMFORT. ACCOMPANIED BY NURSING STAFF TO PARKING LOT. LEFT HOSPITAL PREMISES VIA PRIVATE CAR WITH SON MINDY. HOSPITALIST AWARE OF DISCHARGE.
--- NOTE | 2019-11-22 13:39 | NUR ---
MS RN NOTES NO NEW SKIN BREAKDOWN NOTED ON DISCHARGE
== END 2019-11-22 13:30 | disposition home or self-care (01) | DRG 682 ==
LOC: ER 22:00 → TELE 23:10 → UNDOADMIN 11-18 00:39 → TELE 11-18 00:39 → MED 11-19 08:56
PROVIDERS: ADMIT Nurse Practitioner Acute Care; ATTEND Nurse Practitioner Acute Care
PROC: 30233N1 Transfusion of Nonautologous Red Blood Cells into Peripheral Vein, Percutaneous Approach (ICD-10-PCS; principal; 2019-11-18)
PROC: 0DB68ZX Excision of Stomach, Via Natural or Artificial Opening Endoscopic, Diagnostic (ICD-10-PCS; 2019-11-21)
DX: N17.0 Acute kidney failure with tubular necrosis (principal); I50.33 Acute on chronic diastolic (congestive) heart failure; L03.115 Cellulitis of right lower limb; I13.0 Hypertensive heart and chronic kidney disease with heart failure and stage 1 through stage 4 chronic kidney disease, or unspecified chronic kidney disease; E44.0 Moderate protein-calorie malnutrition; N39.0 Urinary tract infection, site not specified; J98.11 Atelectasis; D68.9 Coagulation defect, unspecified; L03.116 Cellulitis of left lower limb; K29.70 Gastritis, unspecified, without bleeding; D50.9 Iron deficiency anemia, unspecified; E87.6 Hypokalemia; I27.20 Pulmonary hypertension, unspecified; E03.9 Hypothyroidism, unspecified; E66.01 Morbid (severe) obesity due to excess calories; Z86.73 Personal history of transient ischemic attack (TIA), and cerebral infarction without residual deficits; Z79.01 Long term (current) use of anticoagulants; E88.09 Other disorders of plasma-protein metabolism, not elsewhere classified; I48.91 Unspecified atrial fibrillation; I34.0 Nonrheumatic mitral (valve) insufficiency; I25.10 Atherosclerotic heart disease of native coronary artery without angina pectoris; N18.9 Chronic kidney disease, unspecified; K25.9 Gastric ulcer, unspecified as acute or chronic, without hemorrhage or perforation; B96.89 Other specified bacterial agents as the cause of diseases classified elsewhere; Z68.28 Body mass index [BMI] 28.0-28.9, adult; E11.22 Type 2 diabetes mellitus with diabetic chronic kidney disease; Z68.29 Body mass index [BMI] 29.0-29.9, adult; E66.9 Obesity, unspecified; T50.2X5A Adverse effect of carbonic-anhydrase inhibitors, benzothiadiazides and other diuretics, initial encounter
CPT/HCPCS: 36415; 36600; 71045-TC; 76770-TC; 80048-TC; 80053-TC; 80061-TC; 80076-TC; 81000-TC; 82272-TC; 82550-TC; 82570-TC; 82803-TC; 83540-TC; 83605-TC; 83735-TC; 83880; 83970; 84100-TC; 84155; 84155-TC; 84165; 84300-TC; 84484-TC; 85025-TC; 85610-TC; 86850-TC; 86921-TC; 87040-TC; 87081-TC; 87086-TC; 88305-TC; 88313-TC; 88342; 93307-TC; 94799-TC; 97110-TC; 97116-TC; 97530-TC; C9113; G0378; J0696; J1200; J1650; J1940; J2060; J2704; J2916; J3410; J3490; J7030; J7050; J7060; P9016-BL; Q0163; Q0177

== ENCOUNTER 2020-04-13 16:41 | Inpatient (IN) | payer MEDICARE, OTHER ==
[~2020-04-13] VITALS: Ht 152.4 cm; Wt 71.7 kg
[~2020-04-13 16:41] MED LIST changes: +ALLO100T PO; -CARV12.52 PO; +FURO-144 PO; -FURO20TA4 PO; -MULT-182 PO; -POTA8TAB3 PO; -WARF2TAB57 PO; +WARF3TAB59 PO
--- NOTE | 2020-04-13 16:50 | NUR ---
elvie, c/o BLE edema, unable to hold everything down, "ulcer." Patient a/ox4, breathing even and unlabored, no sob noted, guinean speaking, attached to the teletypesetter monitor.
[2020-04-13 17:01] LABS: BASOPHILS # (AUTO) 0.1 /CMM (0.0-0.2); BASOPHILS % (AUTO) 1.6 % (0.0-2.0); LYMPHOCYTES # (AUTO) 0.8 /CMM (0.8-4.8); LYMPHOCYTES % (AUTO) 13.4 % (20.0-44.0); MEAN CORPUSCULAR HGB CONC 29 g/dl (31.0-36.0); MEAN CORPUSCULAR VOLUME 65 fL (82-100); MONOCYTES # (AUTO) 0.6 /CMM (0.1-1.30); MONOCYTES % (AUTO) 10.4 % (2.0-12.0); NEUTROPHILS # (AUTO) 4.3 /CMM (1.8-8.9); NEUTROPHILS % (AUTO) 71.6 % (43.0-81.0); PLATELET COUNT (AUTO) 304 /CMM (150-450); RED BLOOD CELL COUNT(AUTO) 2.72 MIL/uL (4.0-5.2)
[2020-04-13 17:06] LABS: HEMATOCRIT 18 % (33-45); HEMOGLOBIN 5.2 g/dL (11.5-14.8)
[2020-04-13 17:10] LABS: CALCIUM, SERUM 9.1 mg/dL (8.5-10.1); CARBON DIOXIDE 35 mmol/L (21-32); CHLORIDE 101 mmol/L (98-107); CREATININE 1.8 mg/dL (0.6-1.3); GLUCOSE 119 mg/dL (74-106); POTASSIUM 3.2 mmol/L (3.5-5.1); SODIUM SERUM 143 mmol/L (136-145); UREA NITROGEN, BLOOD 64 mg/dL (7-18)
[2020-04-13 17:22] LABS: ALANINE AMINOTRANSFERASE 14 U/L (12-78); ALBUMIN 2.9 g/dL (3.4-5.0); ALKALINE PHOSPHATASE 78 U/L (46-116); ASPARTATE AMINOTRANSFERASE 22 U/L (15-37); B-TYPE NATRIURETIC PEPTIDE 5530 PG/ML (0-125); BILIRUBIN,DIRECT 0.1 mg/dL (0.0-0.2); BILIRUBIN,TOTAL 0.3 mg/dL (0.2-1.0); TOTAL PROTEIN, SERUM 6.2 g/dL (6.4-8.2)
[2020-04-13 17:27] LABS: LYMPHOCYTES % (MANUAL) 14 % (16-48); MONOCYTES % (MANUAL) 2 % (0-11.0); NEUTROPHILS % (MANUAL) 72 (42-76); REACTIVE LYMPHOCYTES 10 % (0-0)
[2020-04-13 17:28] LABS: EOSINOPHILS % (MANUAL) 2 % (0-4)
[2020-04-13] MEDS ORDERED: ERGO500040 PO (17:57)
[2020-04-13] MEDS ORDERED: POTA8TAB3 PO (17:57)
[2020-04-13] MEDS ORDERED: FEBU40TA3 PO (17:57)
[2020-04-13] MEDS ORDERED: APIX2.5T PO (17:57)
--- NOTE | 2020-04-13 18:00 | NUR ---
patient's o2 saturation shows 86-90% on room air, applied o2 at 3lpm via nc, dr. monroe made aware.
--- NOTE | 2020-04-13 18:00 | NUR ---
blood transfusion consentssigned by bhargavi Jean.
--- NOTE | 2020-04-13 18:30 | NUR ---
KENNY PAGED ITS DARLENE RUTH
--- NOTE | 2020-04-13 19:29 | NUR ---
REPORT RECEIVED FROM MAMTA KENT FOR RICKIE
--- NOTE | 2020-04-13 19:55 | NUR ---
BLOOD VERIFIED WITH ANOTHER, RN. BLOOD TRANSFUSION INITIATED. VSS.
--- NOTE | 2020-04-13 19:55 | NUR ---
Consent signed by Patient's son agreeing to administration of blood. Patient or responsible alliance party informed of potential complications associated with blood transfusion. Information on unit of blood checked against patient wristband at bedside by two nurses. All information matches. Patient made aware of need to notify nurse at once if begins to experience itching, shortness of breath, flushing, feeling of impending doom, or other symptoms not previously present.
[2020-04-13] MEDS ORDERED: FUROSEMIDE 20 MG/2 ML VIAL IV ONE (20:00)
[2020-04-13] MEDS ORDERED: FUROSEMIDE 20 MG/2 ML VIAL ONE (20:07)
--- NOTE | 2020-04-13 20:10 | NUR ---
NO ALLERGIC REACTIONS NOTED. VSS. RESPIRATIONS EVEN AND UNLABORED. WILL CONTINUE TO MONITOR
--- NOTE | 2020-04-13 20:16 | NUR ---
ER SPOKE TO REHANA TOVAR DNP REGARDING PT ADMISSION.
--- NOTE | 2020-04-13 20:20 | NUR ---
NURSE WILL CALL BACK
--- NOTE | 2020-04-13 20:26 | NUR ---
REPORT GIVEN TO MAMTA POLANCO FOR RICKIE
[2020-04-13 20:45] VITALS: BP 137/71
--- NOTE | 2020-04-13 20:45 | NUR ---
BLOOD TRANSFUSION INFUSING ON ADMISSION. ENDORSED TO MAMTA SCOTT.
[2020-04-13 21:00] VITALS: BP_SYST 137; BP_SYST 142; BP_DIAS 77
[2020-04-13] MEDS ORDERED: ONDANSETRON HCL/PF 4 MG/2 ML VIAL IVP PRN (21:00)
[2020-04-13] MEDS ORDERED: Z GUARD REMEDY 2 OZ OINT TP PRN (21:00)
[2020-04-13] MEDS ORDERED: ACETAMINOPHEN 325 MG TABLET PO PRN (21:00)
[2020-04-13] MEDS ORDERED: ZOLPIDEM TARTRATE 5 MG TABLET PO PRN (21:00)
[2020-04-13] MEDS ORDERED: MAG HYDROX/AL HYDROX/SIMETH 30 ML UDC PO PRN (21:00)
[2020-04-13] MEDS ORDERED: MAGNESIUM HYDROXIDE 30 ML UDC PO PRN (21:00)
[2020-04-13] MEDS ORDERED: HYDROCODONE/APAP 5/325MG TABLET PO PRN (21:00)
[2020-04-13 21:36] VITALS: BP 130/51
[2020-04-13 22:00] VITALS: BP 132/45
--- NOTE | 2020-04-13 22:00 | NUR ---
ADMISSION NOTES: RECEIVED REPORT FROM [facility] AT 2029, PT BROUGHT TO THE UNIT VIA GURNEY AT 2044. PT A/O X3, ON 4L OXYGEN VIA NC, 1UNIT PRBC ONGOING AT 125ML/HR FROM ER. PT TRANSFERRED TO BED, MADE COMFORTABLE. ADMISSION QUESTIONNAIRE ANSWERED BY PT, WITH HELP OF RN FAYE HATFIELD SPEAKING. PT HAS IV ACCESS ON LEFT AC G 18 PATENT AND FLUSHING WELL. BLE SWELLING NOTED +2. OFFLOADED ON PILLOWS. ORIENTED PT TO UNIT POLICY AND HOURLY ROUNDING, USE OF CALL LIGHT SYSTEM. TELE MONITORING AFIB HR 55. PT DENIES ANY CHEST PAIN OR SOB. VS TAKEN AND RECORDED. INVENTORY OF BELONGINGS COMPLETED BY CUONG CALDWELL. SAFETY PRECAUTIONS FOR FALL REMAINS ENGAGED, CALL LIGHT IN REACH. WILL CONTINUE MONITORING PT.
[2020-04-13 22:36] VITALS: BP 118/75
--- NOTE | 2020-04-13 22:37 | NUR ---
rn notes/completed blood transfusion: 1unit prbc transfusion completed. vs taken and recorded, no s/s of blood transfusion reaction noted. pt remains afebrile. a/o x4, on simple mask 10L. will continue monitoring pt.
[2020-04-14] VITALS (12 sets, daily range): BP systolic 98–137; BP diastolic 47–86
--- NOTE | 2020-04-14 00:30 | NUR ---
RN NOTES: SPOKED WITH PT'S SON, KASIA GUILLEN UPDATE REGARDING PT'S CONDITION, AND IS RTEQUESTING TO FOR OUR OWN MD TO CALL PT'S TIMBER APPRAISER DR POOLE [phone]
--- NOTE | 2020-04-14 01:30 | NUR ---
RN NOTES: NOTIFIED MD RUBBER MOLD MAKER HOSPITALIST REGARDING PT'S HR, AFIB 50-60, LOWEST IS 30 WHEN PT ASLEEP, PT A/O X3, RESPONSIVE, ON 10L SIMPLE MASK, NO NEW ORDERS RECEIVE FROM MD
--- NOTE | 2020-04-14 04:03 | NUR ---
RN NOTES: CONTACTED EPIC MD CHANNEL SALES DIRECTOR DR TOVAR, INFORMED ABOUT K LEVEL 3.2, PER MD NO NEED TO REPLACE, BUT GIVEN TELEPHONE ORDER TO TRANSFUSE ANOTHER 1UNIT PRBC . ORDER READ BACK VERIFIED AND CARRIED OUT.
--- NOTE | 2020-04-14 04:30 | NUR ---
RN NOTES: PT GREAT TOE (RIGHT FOOT), NOTED TO HAVE TOENAIL, PT ACCIDENTALLY HIT THE TOE UPON GOING TO THE BATHROOM, AND TOE STARTED BLEEDING, THEN LATER ON BLEEDING EVENTUALLY STOP. CLEANSED WITH NS PAT DRY. GIACOMO, BLE KEPT OFFLOADED ON PILLOWS. WILL CONTINUE MONITORING PT.
[2020-04-14 04:45] LABS: BASOPHILS % (AUTO) 0.7 % (0.0-2.0); EOSINOPHILS % (AUTO) 4.3 % (0.0-6.0); LYMPHOCYTES # (AUTO) 0.5 /CMM (0.8-4.8); LYMPHOCYTES % (AUTO) 9.5 % (20.0-44.0); MEAN CORPUSCULAR HGB CONC 31 g/dl (31.0-36.0); MEAN CORPUSCULAR VOLUME 66 fL (82-100); MONOCYTES # (AUTO) 0.5 /CMM (0.1-1.30); MONOCYTES % (AUTO) 8.5 % (2.0-12.0); NEUTROPHILS # (AUTO) 4.4 /CMM (1.8-8.9); PLATELET COUNT (AUTO) 241 /CMM (150-450); RED BLOOD CELL COUNT(AUTO) 2.97 MIL/uL (4.0-5.2); WHITE BLOOD COUNT (AUTO) 5.7 K/uL (4.3-11.0)
[2020-04-14 05:05] LABS: HEMATOCRIT 20 % (33-45)
--- NOTE | 2020-04-14 05:08 | NUR ---
CRITICAL BA H/H 6.0/20: RECEIVED CRITICAL LAB RESULT FOR H/H 6.0 AND 20, AWARE, WILL TRANSFUSE 2ND UNIT OF PRBC
[2020-04-14 05:10] LABS: ALANINE AMINOTRANSFERASE 9 U/L (12-78); ALBUMIN 2.5 g/dL (3.4-5.0); ALKALINE PHOSPHATASE 67 U/L (46-116); ASPARTATE AMINOTRANSFERASE 20 U/L (15-37); BILIRUBIN,TOTAL 0.5 mg/dL (0.2-1.0); CALCIUM, SERUM 8.9 mg/dL (8.5-10.1); CARBON DIOXIDE 35 mmol/L (21-32); CHLORIDE 103 mmol/L (98-107); GLUCOSE 106 mg/dL (74-106); MAGNESIUM 2.5 mg/dL (1.8-2.4); PHOSPHORUS 4.2 mg/dL (2.5-4.9); POTASSIUM 2.9 mmol/L (3.5-5.1); SODIUM SERUM 143 mmol/L (136-145); TOTAL PROTEIN, SERUM 5.4 g/dL (6.4-8.2); UREA NITROGEN, BLOOD 62 mg/dL (7-18)
[2020-04-14 05:19] LABS: CHOLESTEROL 79 mg/dL (<200); HDL CHOLESTEROL 42 mg/dL (40-60); LDL 31 mg/dL (0-99); THYROID STIMULATING HORMONE 5.172 uIU/mL (0.358-3.74); TRIGLYCERIDES 39 mg/dL (30-150)
--- NOTE | 2020-04-14 05:27 | NUR ---
2nd unit prbc: 2nd unit of prbc started, cosigned by another rn marlyn catalan taken and recorded. will stay with the pt for 15-30mins to monitor for any s/s of blood transfusion reaction
[2020-04-14 05:45] LABS: EOSINOPHILS % (MANUAL) 3 % (0-4); LYMPHOCYTES % (MANUAL) 9 % (16-48); MONOCYTES % (MANUAL) 7 % (0-11.0)
[2020-04-14 05:46] LABS: NEUTROPHILS % (MANUAL) 81 (42-76)
--- NOTE | 2020-04-14 06:50 | NUR ---
END OF SHIFT REPORT: PT NOW ON 4L OXYGEN VIA NC, SPO2 98-100%. REMAINS A/O X3, RESPIRATIONS EVEN AND UNLABORED. TELE MONITORING AFIB HR 60. IV ACCESS REMAINS PATENT AND FLUSHING WELL, ON HL. ONGOING 2ND UNIT PRBC TRANSFUSION. FOR CARDIO CONSULT. NO S/S OF ACTIVE BLEEDING NOTED. VS REMAINS STABLE, NEEDS ATTENDED. SAFETY PRECAUTIONS FOR FALL REMAINS ENGAGED, CALL LIGHT IN REACH, WILL ENDORSE TO DAY RN FOR CONTINUITY OF CARE.
--- NOTE | 2020-04-14 08:00 | NUR ---
MS RN OPENING NOTES RECEIVED PT IN BED. ASLEEP BUT AROUSABLE. AOX3. NO CARDIAC OR RESPIRATORY DISTRESS NOTED. NO SOB NOTED. SATURATING WELL AT 3L OF O2 VIA NASAL CANULLA. PT IS SLEEPING AT THIS TIME. PT ON CARDIAC TELE MONITORING SHOWING AFIB WITH HR OF 61. PER NIGHT NURSE, PTS HR TENDS TO RUN AT LOW 60S TO HIGH 50S. PHOTO TECHNICIAN NURSE ALSO REPORTED THAT WHEN PT WAS TAKEN TO THE BATHROOM EARLY THIS AM, SHE ACCIDENTALLY STUBBED HER TOE AGAINST THE WALL AND CAUSE SOME MILD BLEEDING ON THE R 1ST BIG TOE NAIL. NO BLEEDING NOTED AT THIS TIME, HOWEVER TOE NAIL WAS NOTED TO BLE BLACK. IV ACCESS NOTED ON L AC G18. INTACT AND PATENT AND FLUSHING WELL. NO S/S OF INFECTION AND INFILTRATION NOTED. SAFETY PRECAUTIONS IN PLACE. BED LOCKED AND IN LOW POSITION. SIDE RAILS UP X2. BED ALARM ON. WILL CONT TO MONITOR.
[2020-04-14] MEDS ORDERED: FEBUXOSTAT 40 MG PO SCH (09:00)
--- NOTE | 2020-04-14 09:56 | NUR ---
WOUND CARE CONSULT: RECEIVED CONSULT REQUEST FROM NURSING STAFF FOR RT GREAT TOENAIL WHICH IS LOOSE WITH SCANT BLEEDING AT [place]. PER NURSING STAFF. PT HAD DISCOLORED NAIL ON ADMISSION. RECOMMEND DPM CONSULT. DR FREY NOTIFIED OF CONSULT REQUEST. RECOMMENDATIONS MADE FOR SKIN PROTECTION. DISCUSSED WITH NURSING STAFF. WILL SEE PRN. TOLBERT IN AGREEMENT WITH PLAN OF CARE.
--- NOTE | 2020-04-14 10:00 | NUR ---
K REPLACEMENT RECEIVED ORDER FROM DR. TAVERAS FOR K+ REPLACEMENTS TO GIVE 100MEQ. K+ NOTED AT 2.9. CALLED DR. TAVERAS TO CLARIFY AND CONFIRM THAT HE INDEED WANTS [address] TAVERAS CONFIRMED THAT HE WANTS IT. ASKED , IF WE CAN ORDER MIDLINE INCASE THE IV SITE INFILTRATES. AGREED.
[2020-04-14 10:06] LABS: URIC ACID 4.7 mg/dL (2.6-7.2)
[2020-04-14] MEDS: POTASSIUM CL. PREMIX PERIPHER. 50 ML IV SCH ×9 (10:10→21:47)
--- NOTE | 2020-04-14 10:15 | NUR ---
MIDLINE NOTIFIED PLASTER CASTER REGARDING THE NEED FOR MIDLINE. PLASTER CASTER AWARE.
[2020-04-14 10:40] LABS: HEMOGLOBIN 7.8 g/dL (11.5-14.8)
--- NOTE | 2020-04-14 11:30 | NUR ---
PODIATRY CONSULT DR. PERDOMO (PODIATRY) SAW PT. PER MD, HE WILL PERFORM A R BIG 1ST TOW AVULSION.
--- NOTE | 2020-04-14 12:00 | NUR ---
MIDLINE STILL AWAITING FOR MIDLINE NURSE TO COME IN FOR MIDLINE INSERTION
--- NOTE | 2020-04-14 12:30 | NUR ---
CONSENT CONSENT OBTAINED FROM PTS SON (MINOO) FOR R BIG TOE AVULSION. SON AGREED. SON ALSO SPOKE TO HIS MOM OVER THE PHONE IN FRISIAN PRIOR. PT IS ALSO AGREEABLE, BUT SHE REFUSES TO SIGN SHE SAYS, "HONEY, I DONT SIGN ANYTHING. CALL MY SON PLS."
[2020-04-14] MEDS ORDERED: LIDOCAINE HCL/PF 1% 30 ML SDV IJ ONE (13:00)
[2020-04-14] MEDS ORDERED: GUAIFENESIN/D-METHORPHAN HB 5 ML UDC PO PRN (15:00)
--- NOTE | 2020-04-14 15:00 | NUR ---
S/P R TOE NAIL AVULSION DR. PERDOMO PERFORMED R 1ST BIG TOE NAIL AVULSION AT THE BEDSIDE WITH ASSISTANCE OF PRIMARY RN. MD ADMINISTERED LIDOCAINE PRIOR TO PROCEDURE. PTS TOE NAIL WAS TAKEN OFF. DRESSING APPLIED. NO BLEEDING NOTED POST PROCEDURE. PT TOLERATED WELL. PER MD, IN CASE, IT STARTS TO BLEED, TO JUST GO AHEAD AND RE-INFORCE DRESISNG. MD ALSO ORDERED FOR A WOUND CULTURE OF THE L 1ST TOE NAIL THAT WAS TAKEN OUT. RN SENT THE SPECIMEN ORDERED.
[2020-04-14] MEDS: PANTOPRAZOLE 40 MG VIAL IV SCH (15:58)
--- NOTE | 2020-04-14 16:00 | NUR ---
MIDLINE FOLLOWED UP WITH HIM TECH RE: MIDLINE INSRETION FOR 313. SHE SAID SHE WILL FOLLOW UP AND CALL MIDLINE NURSE.
--- NOTE | 2020-04-14 17:15 | NUR ---
MIDLINE MIDLINE NURSE FINALLY CAME AND INSERTED MIDLINE CATH ON R AC. INTACT AND PATENT AND FLUSHING WELL.
--- NOTE | 2020-04-14 21:29 | NUR ---
MS/TELE/RN ON INITIAL ROUNDING AT 1930, PATIENT WAS AWAKE, ALERT, ORIENTED, COMFORTABLE, NO C/O PAIN, NO SIGNS OF DISTRESS NOTED, CALL LIGHT IN REACH. FALL PRECAUTION, WILL MONITOR. SON CALLED SPOKE TO THE PATIENT.
--- NOTE | 2020-04-15 00:12 | NUR ---
MS/TELE/RN PATIENT IS SLEEPING AT THIS THIS TIME, APPEAR COMFORTABLE, BREATHING EVEN AND UNLABORED, CALL LIGHT IN REACH, WILL CONTINUE TO MONITOR.
--- NOTE | 2020-04-15 06:30 | NUR ---
MS/TELE/RN PATIENT IS SLEEPING, APPEAR COMFORTABLE, BREATHING EVEN AND UNLABORED, CALL LIGHT IN REACH. ALL NEEDS ATTENDED AT THIS TIME. WILL CONTINUE TO MONITOR.
[2020-04-15 06:45] LABS: APPEARANCE,URINE CLEAR (CLEAR); BILIRUBIN,URINE NEGATIVE (NEGATIVE); BLOOD, URINE TRACE-INTA Ery/uL (NEGATIVE); COLOR,URINE YELLOW (YELLOW); KETONES,URINE NEGATIVE (NEGATIVE); LEUKOCYTE ESTERASE ,URINE NEGATIVE (NEGATIVE); NITRITE, URINE NEGATIVE (NEGATIVE); PROTEIN,URINE NEGATIVE (NEGATIVE); UGLUCOSE NEGATIVE (NEGATIVE); UROBILINOGEN,URINE 0.2 EU/dL (0.2)
[2020-04-15 06:54] LABS: BASOPHILS # (AUTO) 0.1 /CMM (0.0-0.2); EOSINOPHILS % (AUTO) 4.6 % (0.0-6.0); HEMATOCRIT 24 % (33-45); HEMOGLOBIN 7.3 g/dL (11.5-14.8); LYMPHOCYTES # (AUTO) 0.9 /CMM (0.8-4.8); LYMPHOCYTES % (AUTO) 11.4 % (20.0-44.0); MEAN CORPUSCULAR HGB CONC 30 g/dl (31.0-36.0); MEAN CORPUSCULAR VOLUME 70 fL (82-100); MONOCYTES # (AUTO) 0.7 /CMM (0.1-1.30); MONOCYTES % (AUTO) 8.6 % (2.0-12.0); NEUTROPHILS # (AUTO) 5.7 /CMM (1.8-8.9); NEUTROPHILS % (AUTO) 74.4 % (43.0-81.0); PLATELET COUNT (AUTO) 241 /CMM (150-450); RED BLOOD CELL COUNT(AUTO) 3.46 MIL/uL (4.0-5.2); WHITE BLOOD COUNT (AUTO) 7.7 K/uL (4.3-11.0)
[2020-04-15 07:08] LABS: ALANINE AMINOTRANSFERASE 11 U/L (12-78); ALBUMIN 2.6 g/dL (3.4-5.0); ALKALINE PHOSPHATASE 72 U/L (46-116); ASPARTATE AMINOTRANSFERASE 17 U/L (15-37); BILIRUBIN,TOTAL 0.5 mg/dL (0.2-1.0); CARBON DIOXIDE 32 mmol/L (21-32); CHLORIDE 105 mmol/L (98-107); CREATININE 1.5 mg/dL (0.6-1.3); GLUCOSE 105 mg/dL (74-106); MAGNESIUM 2.5 mg/dL (1.8-2.4); PHOSPHORUS 3.4 mg/dL (2.5-4.9); POTASSIUM 3.9 mmol/L (3.5-5.1); SODIUM SERUM 144 mmol/L (136-145); TOTAL PROTEIN, SERUM 5.8 g/dL (6.4-8.2); UREA NITROGEN, BLOOD 48 mg/dL (7-18)
[2020-04-15 07:41] LABS: BACTERIA,URINE None seen /HPF (None Seen); SQUAMOUS EPITHELIAL CELL,UR Few /HPF (None Seen); WBC,URINE NONE SEEN /HPF (0-3)
[2020-04-15 08:00] VITALS: BP 122/55
[2020-04-15] MEDS: MUPIROCIN OINT 2% 22 GM TUBE TP SCH (10:02)
[2020-04-15 12:16] LABS: EOSINOPHIL,URINE None Seen
[2020-04-15 12:21] LABS: CREATINE KINASE, TOTAL 48 U/L (26-192)
[2020-04-15 13:40] LABS: URINE TOTAL PROTEIN 11.5 mg/dL (0-11.9)
[2020-04-15] MEDS: SOD FERRIC GLUC 125 MG in IV NS 0.9% 100 ML IV SCH (13:57)
[2020-04-15] MEDS: PANTOPRAZOLE 40 MG VIAL IV SCH (15:34)
[2020-04-15 16:00] VITALS: BP 153/98
--- NOTE | 2020-04-15 19:07 | NUR ---
Patient is resting in bed, alert and oriented x3 . VS are stable , no respiratory distress noted, on 2L O2 via NC at this time. All needs attended. Patient kept comfortable.Safety precautions in place, call light within reach. Will endorse to next shift for RICKIE
[2020-04-15 20:00] VITALS: BP 142/78
--- NOTE | 2020-04-15 21:52 | NUR ---
MS/TELE/RN AT INITIAL ROUNDING AT 1930, PATIENT WAS SLEEPING, APPEAR COMFORTABLE, BREATHING EVEN AND UNLABORED, FALL RISK, ALL PRECAUTIONS PER PROTOCOL IN PLACE, CALL LIGHT IN REACH, WILL MONITOR.
--- NOTE | 2020-04-16 04:11 | NUR ---
MS/TELE/RN REPORT GIVEN TO MAMTA HUMMEL. PATIENT WILL BE TRANSFERRED TO [facility], 204-1.
--- NOTE | 2020-04-16 04:33 | NUR ---
MS/TELE/RN PATIENT WAS MOVED TO [facility] ROOM 204-1.
--- NOTE | 2020-04-16 04:35 | NUR ---
RN NOTES Received patient transferred from [facility] to MS 204. On O2 via NC @ 2LPM, saturating well, no respiratory distress noted. Awake, no s/sx of discomfort noted. Kept on bed clean, dry and comfortable. On fall and aspiration precautions. Will continue to monitor accordingly.
--- NOTE | 2020-04-16 06:49 | NUR ---
RN CLOSING NOTES Patient asleep, easily awaken. On O2 inhalation via NC @ 2LPM, no SOB/respiratory distress noted. Patient denies any discomfort at this time. Afebrile the whole shift, no new unusualities. All nursing needs attended. Kept on bed clean, dry and comfortable. Endorsed.
--- NOTE | 2020-04-16 08:00 | NUR ---
MS RN OPENING NOTES Received Patient awake and resting in bed. A/O x 3, Slovenian speaking. VS stable with no acute distress. Breathing even and unlabored on 3LPM via NC with no respiratory distress. Denies pain. Iglesias Cath in place and patent. LUIS Midline clean, intact, patent and flushing well. 18g PIV on LAC intact and flushing well. Safety precautions in place. Bed locked and set to lowest position with side rails x 2 up. All needs rendered at this time. Call light within reach. Will continue to monitor.
[2020-04-16 08:48] VITALS: BP 134/66
[2020-04-16] MEDS: MUPIROCIN OINT 2% 22 GM TUBE TP SCH (08:57)
[2020-04-16] MEDS: SOD FERRIC GLUC 125 MG in IV NS 0.9% 100 ML IV SCH (14:29)
[2020-04-16] MEDS: PANTOPRAZOLE 40 MG VIAL IV SCH (15:04)
[2020-04-16 16:06] VITALS: BP 145/72
[2020-04-16] MEDS ORDERED: LORAZEPAM 0.5 MG TABLET PO PRN (16:30)
[2020-04-16 18:06] LABS: PTH, INTACT 46 pg/mL (15-65)
--- NOTE | 2020-04-16 18:28 | NUR ---
MS RN CLOSING NOTES Patient awake and resting in bed. A/O x 3, Malay speaking. VS stable with no acute distress. Breathing even and unlabored on 3LPM via NC with no respiratory distress. Denies pain. Iglesias Cath in place and patent. LUIS Midline clean, intact, patent and flushing well. 18g PIV on LAC intact and flushing well. Safety precautions in place. Bed locked and set to lowest position with side rails x 2 up. All needs rendered at this time. Call light within reach. Will endorse plan of care to oncoming shift.
--- NOTE | 2020-04-16 19:48 | NUR ---
MS/RN OPENING NOTES PATIENT SITTING IN BED, AWAKE, AND SPEAKING MALAY , ON OXYGEN VIA NC AT 3LITER, RESPIRATIONS EVEN AND UNLABORED, ASSISTED TO BED AND KEPT BLE ELEVATED WITH PILLOW. PATIENT REQUIRE ASSISTANCE IN ADLS FOR SAFETY, WITH AARON DRAINING YELLOW COLOR URINE. LUIS MIDLINE PATENT. TO MONITOR FOR ANY CHANGEAS, RECEIVED REPORT FROM AM RN FOR RICKIE. WILL MONITOR.
[2020-04-16 20:00] VITALS: BP 141/76
[2020-04-16 20:08] VITALS: BP 141/76
--- NOTE | 2020-04-17 06:21 | NUR ---
204-1MS/RN NOTES PATIENT ABLE TO SLEEP FEW HOURS, MONITORED FOR ANY S/S OF SOB AND ASSISTED TO KEEP COMFORTABLE, BED LOCKED, CALL LIGHTS Within REACH, OFFERED AND PROVIDED FLUIDS. ON AARON DRAINING ADEQUATE URINE
[2020-04-17 07:37] LABS: BASOPHILS # (AUTO) 0.1 /CMM (0.0-0.2); BASOPHILS % (AUTO) 1.6 % (0.0-2.0); EOSINOPHILS % (AUTO) 7.1 % (0.0-6.0); HEMATOCRIT 23 % (33-45); HEMOGLOBIN 7.1 g/dL (11.5-14.8); LYMPHOCYTES # (AUTO) 0.6 /CMM (0.8-4.8); LYMPHOCYTES % (AUTO) 10.7 % (20.0-44.0); MEAN CORPUSCULAR HGB CONC 31 g/dl (31.0-36.0); MEAN CORPUSCULAR VOLUME 71 fL (82-100); MONOCYTES # (AUTO) 0.5 /CMM (0.1-1.30); MONOCYTES % (AUTO) 9.5 % (2.0-12.0); NEUTROPHILS # (AUTO) 3.9 /CMM (1.8-8.9); NEUTROPHILS % (AUTO) 71.1 % (43.0-81.0); PLATELET COUNT (AUTO) 231 /CMM (150-450); RED BLOOD CELL COUNT(AUTO) 3.29 MIL/uL (4.0-5.2); WHITE BLOOD COUNT (AUTO) 5.6 K/uL (4.3-11.0)
[2020-04-17 07:59] LABS: ALBUMIN 2.5 g/dL (3.4-5.0); BILIRUBIN,TOTAL 0.3 mg/dL (0.2-1.0); CALCIUM, SERUM 8.8 mg/dL (8.5-10.1); CREATININE 1.3 mg/dL (0.6-1.3); MAGNESIUM 2.3 mg/dL (1.8-2.4); PHOSPHORUS 2.7 mg/dL (2.5-4.9); POTASSIUM 3.6 mmol/L (3.5-5.1); TOTAL PROTEIN, SERUM 5.8 g/dL (6.4-8.2)
--- NOTE | 2020-04-17 08:01 | NUR ---
MS RN OPENING NOTES RECEIVED PATIENT SITTING IN BED, AWAKE, ALERT AND ORIENTED X3. SAMMARINESE SPEAKING ONLY. NO CARDIAC OR RESPIRATORY DISTRESS NOTED. NO SOB NOTED. ON OXYGEN VIA NC AT 3LITER, SATURATING WELL AT 95%. BREATHING EVEN AND UNLABORED. BUT PT GETS SHORT OF BREATH UPON EXERTION. NO COMPLAINTS OF PAIN OR DISCOMFORT. BIG TOE WOUND NOTED ON R FOPORT. IV ACCESS NOTED ON R UPPER ARM MIDLINE. INTACT AND PATENT AND FLUSHING WELL NO S/S OF INFECTION OR INFILTRATION NOTED. KEPT BLE ELEVATED WITH PILLOW. PATIENT REQUIRE ASSISTANCE IN ADLS FOR SAFETY, AARON CATH PRESENT, INTACT AND PATENT AND DRAINING WITH CLEAR YELLOW URINE. SAFETY PRECAUTIONS IN PLACE. BED LOCKED AND IN LOW POSITION. SIDE RAILS UP X2. BED ALARM ON. CALL LIGHT WITHIN REACH. WILL CONT TO MONITOR.
[2020-04-17] MEDS: MUPIROCIN OINT 2% 22 GM TUBE TP SCH (08:24)
[2020-04-17 08:44] VITALS: BP 145/70
--- NOTE | 2020-04-17 11:30 | NUR ---
WOUND TX/SEEN BY HUMAN RESOURCES HR REPRESENTATIVE WOUND TX DONE AT THIS TIME. DR. PERDOMO WAS ALSO HERE AND SAW PT.
[2020-04-17] MEDS: SOD FERRIC GLUC 125 MG in IV NS 0.9% 100 ML IV SCH (14:27)
[2020-04-17] MEDS: PANTOPRAZOLE 40 MG VIAL IV SCH (15:02)
[2020-04-17 16:52] VITALS: BP 144/68
--- NOTE | 2020-04-17 18:30 | NUR ---
SEEN BY DR. RUTH PT WAS SEEN BY DR. RUTH, ALSO INFORMED MD REGARDING PT BLE EDEMA +3 WELL INCREASING SOB UPON EXERTION. PER MD HE WILL ORDER DIURETICS. MD ALSO STATED HE WILL ORDER COLONOSCOPY TO CHECK IF THERE IS ANY BLEEDING.
--- NOTE | 2020-04-17 18:45 | NUR ---
CONSENT OBTAINED CONSENT OBTAINED FOR COLONOSCOPY. PT AGREED AND SIGNED. RIOS GUILLEN ALSO MADE AWARE AND IS AGREEABLE TO PROCEDURE.
--- NOTE | 2020-04-17 19:00 | NUR ---
MS RN CLOSING NOTES PATIENT SITTING IN BED, AWAKE, ALERT AND ORIENTED X3. TRINIDADIAN SPEAKING ONLY. NO CARDIAC OR RESPIRATORY DISTRESS NOTED. NO SOB NOTED. ON OXYGEN VIA NC AT 3LITER, SATURATING WELL AT 95%. BREATHING EVEN AND UNLABORED. BUT PT GETS SHORT OF BREATH UPON EXERTION. NO COMPLAINTS OF PAIN OR DISCOMFORT AT THIS TIME. BIG TOE WOUND NOTED ON R FOOT. IV ACCESS NOTED ON R UPPER ARM MIDLINE. INTACT AND PATENT AND FLUSHING WELL NO S/S OF INFECTION OR INFILTRATION NOTED. KEPT BLE ELEVATED WITH PILLOW. PATIENT REQUIRE ASSISTANCE IN ADLS FOR SAFETY, AARON CATH PRESENT, INTACT AND PATENT AND DRAINING WITH CLEAR YELLOW URINE. SAFETY PRECAUTIONS IN PLACE. BED LOCKED AND IN LOW POSITION. SIDE RAILS UP X2. BED ALARM ON. CALL LIGHT WITHIN REACH. WILL CONT TO MONITOR.
[2020-04-17] MEDS ORDERED: BUMETANIDE INJ 4 MG in IV NS 0.9% 24 ML IV ONE (19:30)
[2020-04-17 20:00] VITALS: BP 136/65
[2020-04-17] MEDS ORDERED: PEG 3350/NA SULF,BICARB,CL/KCL 4,000 ML BOTTLE PO ONE (23:00)
[2020-04-17] MEDS ORDERED: PEG 3350/NA SULF,BICARB,CL/KCL 4,000 ML BOTTLE ONE (23:38)
[2020-04-17] MEDS ORDERED: SORBITOL SOLUTION 30 ML ONE (23:39)
--- NOTE | 2020-04-18 | NUR ---
MS2/RN GAVE INSTRUCTIONS TO DRINK THE GOLYTELY ORDERED.
--- NOTE | 2020-04-18 04:00 | NUR ---
MS2/RN PATIENT TOOK ABOUT 4 CUPS ONLY OF GOLYTELY, THEN REFUSED. INFORMED PATIENT THAT COLONOSCOPY WILL NOT BE DONE IF SHE WILL NOT DRINK THE GOLYTELY AND NO BM YET, PATIENT VERBALIZED UNDERSTANDING BUT STILL REFUSED. WILL NOTIFY DR. CHAN.
[2020-04-18 05:07] LABS: *SPE A/G RATIO 0.9 (0.7-1.7); *SPE ALBUMIN 2.4 g/dL (2.9-4.4); *SPE ALPHA-1-GLOBULIN 0.3 g/dL (0.0-0.4); *SPE ALPHA-2-GLOBULIN 0.7 g/dL (0.4-1.0); *SPE BETA GLOBULIN 0.8 g/dL (0.7-1.3); *SPE GLOBULIN, TOTAL 2.8 g/dL (2.2-3.9); *SPE M-SPIKE Not Observed g/dL (Not Observed); *SPEGAMMA GLOBULIN 0.9 g/dL (0.4-1.8)
--- NOTE | 2020-04-18 06:04 | NUR ---
MS2/RN PLACED A CALL TO DR. CHAN, , RE: PATIENT TOOK ONLY 4 CUPS OF GOLYTELY AND THEN REFUSED. LEFT MESSAGE.
--- NOTE | 2020-04-18 06:15 | NUR ---
MS2/RN PATIENT IS AWAKE, ALERT, RESTING ON BED, COMFORTABLE, NO DISTRESS NOTED, NPO, ALL NEEDS ATTENDED AT THIS TIME, WILL CONTINUE TO MONITOR.
[2020-04-18 06:27] LABS: BASOPHILS # (AUTO) 0.1 /CMM (0.0-0.2); BASOPHILS % (AUTO) 1.5 % (0.0-2.0); HEMATOCRIT 24 % (33-45); HEMOGLOBIN 7.3 g/dL (11.5-14.8); LYMPHOCYTES # (AUTO) 0.8 /CMM (0.8-4.8); LYMPHOCYTES % (AUTO) 9.3 % (20.0-44.0); MEAN CORPUSCULAR HGB CONC 30 g/dl (31.0-36.0); MEAN CORPUSCULAR VOLUME 72 fL (82-100); MONOCYTES # (AUTO) 0.8 /CMM (0.1-1.30); MONOCYTES % (AUTO) 8.9 % (2.0-12.0); NEUTROPHILS # (AUTO) 6.7 /CMM (1.8-8.9); NEUTROPHILS % (AUTO) 77.3 % (43.0-81.0); PLATELET COUNT (AUTO) 263 /CMM (150-450); WHITE BLOOD COUNT (AUTO) 8.7 K/uL (4.3-11.0)
[2020-04-18 06:47] LABS: CREATININE 1.3 mg/dL (0.6-1.3); MAGNESIUM 2.2 mg/dL (1.8-2.4); PHOSPHORUS 2.6 mg/dL (2.5-4.9); POTASSIUM 3.6 mmol/L (3.5-5.1)
--- NOTE | 2020-04-18 06:54 | NUR ---
MS2/RN CALLED PHARMACY, RE: NEED 2 MORE BOTTLES OF SORBITOL SOLUTION. PER PHARMACY, HE WILL LOOK INTO IT.
--- NOTE | 2020-04-18 07:30 | NUR ---
MS RN OPENING NOTES RECEIVED PATIENT SITTING IN BED, AWAKE, ALERT AND ORIENTED X3. BOLIVIAN SPEAKING ONLY. UPON ROUNDS, PT SEEMS TO BE VERY UPSET THAT THE NIGHT NURSE WAS MAKING HER TAKE THE GOLYTYELY LAST NIGHT. SHE WAS TELLING ME "HONEY, I ALREADY DRANK 4 CUPS. THAT IS ENOUGH, I DONT WANT ANYMORE. THAT IS TOO MUCH!" EXPLAINED TO PT THAT THIS NEEDS TO BE TAKEN, BECAUSE HER BOWELS NEEDS TO BE CLEANSED PRIOR TO THE PROCEDURE. BUT SHE IS STILL REFUSING TO TAKE IT. PER NIGHT NURSE, PT HAS NOT HAD ANY BOWEL MOVEMENTS ALL NIGHT LAST NIGHT. WILL NOTIFY DR. CHAN. PT STILL KEPT NPO UNTIL FURTHER ORDERS BY MD. NO CARDIAC OR RESPIRATORY DISTRESS NOTED. NO SOB NOTED. ON OXYGEN VIA NC AT 3LITER, SATURATING WELL AT 95%. BREATHING EVEN AND UNLABORED. BUT PT GETS SHORT OF BREATH UPON EXERTION. NO COMPLAINTS OF PAIN OR DISCOMFORT. IV ACCESS NOTED ON R UPPER ARM MIDLINE. INTACT AND PATENT AND FLUSHING WELL NO S/S OF INFECTION OR INFILTRATION NOTED. KEPT BLE ELEVATED WITH PILLOW. PATIENT REQUIRE ASSISTANCE IN ADLS FOR SAFETY, AARON CATH PRESENT, INTACT AND PATENT AND DRAINING WITH CLEAR YELLOW URINE. SAFETY PRECAUTIONS IN PLACE. BED LOCKED AND IN LOW POSITION. SIDE RAILS UP X2. BED ALARM ON. CALL LIGHT WITHIN REACH. WILL CONT TO MONITOR.
--- NOTE | 2020-04-18 07:45 | NUR ---
NOTIFIED DR. CHAN CALLED DR. CHAN TO INFORM THAT PT REFUSING TO TAKE ALL OF THE GOLYTELY SOLUTION. AND THAT PT HAS NOT HAD ANY BM ALL NIGHT LAST NIGHT. LEFT MESSAGE ON MD'S PHONE. AWAITING CALL BACK.
--- NOTE | 2020-04-18 07:50 | NUR ---
F/U WITH OR FOLLOWED UP WITH OR IF THERE IS ALREADY A SCHED FOR DR. CHAN FOR COLONOSCOPY FOR THISP T. PER OR, NO SCHEDULE YET. WILL F/U AGAIN LATER
[2020-04-18 08:00] VITALS: BP 131/68
[2020-04-18] MEDS: MUPIROCIN OINT 2% 22 GM TUBE TP SCH (08:40)
--- NOTE | 2020-04-18 08:45 | NUR ---
F/U WITH ROCIO CALLED DR. CHAN AGAIN TO INFORM THAT PT REFUSING TO TAKE ALL OF THE GOLYTELY SOLUTION. AND THAT PT HAS NOT HAD ANY BM ALL NIGHT LAST NIGHT. LEFT MESSAGE AGAIN (2ND ATTEMPT) ON MD'S PHONE. AWAITING CALL BACK.
[2020-04-18] MEDS: FUROSEMIDE 40 MG/4 ML VIAL IV SCH ×4 (10:07→17:30)
[2020-04-18] MEDS: SOD FERRIC GLUC 125 MG in IV NS 0.9% 100 ML IV SCH (13:46)
--- NOTE | 2020-04-18 14:00 | NUR ---
DR. CHAN ORDERS DR. CHAN CALLED AND WAS INFORMED REGARDING PT REFUSING TO DRINK THE REST OF THE GOLYTELY. THEN STATED TO TRY TO ENCOURAGE PT TO TAKE GOLYTELY BETWEEN NOW AND TOMORROW AM, THEN ALSO ORDERED CLEAR LIQUIDS FOR DINNER TONIGHT THEN NPO AFTER MIDNIGHT WELL SORBITOL Q6HRS THEN HE SAID HE WILL DO THE COLONOSCOPY TOMORROW. AFTER CONVERSATION WITH DR. CHAN, I INFORMED THE PT WELL HER SON AND BOTH OF THEM AGREED TO THE PLAN.
[2020-04-18] MEDS: SORBITOL SOLUTION 30 ML PO SCH ×4 (14:22→21:00)
[2020-04-18] MEDS: PANTOPRAZOLE 40 MG VIAL IV SCH (14:22)
--- NOTE | 2020-04-18 15:00 | NUR ---
SORBITOL/GOLYTELY ADMINISTERED 60ML OF SORBITOL THEN 1 CUP OF GOLYTELY. PT AGREED TO TAKE MEDS. TOLERATED WELL.
--- NOTE | 2020-04-18 16:00 | NUR ---
GOLYTELY I ASKED THE PT TO DRINK ANOTHER CUP OF GOLYTELY AND SHE AGREED. TOLERATED WELL. NO BM NOTED AT THIS TIME YET.
--- NOTE | 2020-04-18 17:00 | NUR ---
REFUSING TO TAKE MEDS PT CALLED ME TO HER ROOM SO I BROUGHT HER MEDS THAT WERE DUE WHICH WAS LASIX, SORBITOL, GOLYTELY AND KDUR. BUT PT WAS UPSET, SHE TOLD ME, "HONEY, I REALLY LIKE YOU BUT IM SORRY, I WILL NOT TAKE THOSE MEDICATIONS. I DONT WANNA DO THE PROCEDURE. I JUST WANT TO GO HOME PLEASE CALL MY SON. PLS TELL HIM TO PICK ME UP." I PUT THE PT ON THE PHONE WITH THE PT AND EVEN THE SON COULD NOT CONVINCE THE PT TO STAY. HOWEVER, SON SAID HE CANNOT PICK THE PT UP TONIGHT, BUT WILL PROBABLY DO SO IN THE MORNING. I EXPLAINED TO BOTH SON AND THE PT REGARDING THE IMPORTANCE OF TAKING MEDS AND THE PURPOSE OF EACH MEDICATION, WELL LEAVING AGAINST MEDICAL ADVICE. SON WAS VERY UNDERSTANDING, BUT PT IS VERY ADAMANT TO GO HOME. CALLED DR. GARCIA AND MADE AWARE OF PTS REFUSALS AND PT WANTING TO GO HOME. MD MORA.
[2020-04-18] MEDS: POTASSIUM CHLORIDE 20 MEQ TAB.PRT.SR PO SCH ×3 (17:17→20:00)
--- NOTE | 2020-04-18 19:15 | NUR ---
MS RN CLOSING NOTES MS RN OPENING NOTES RECEIVED PATIENT SITTING IN BED, AWAKE, ALERT AND ORIENTED X3. URUGUAYAN SPEAKING ONLY. NO CARDIAC OR RESPIRATORY DISTRESS NOTED. NO SOB NOTED. ON OXYGEN VIA NC AT 3LITER, SATURATING WELL AT 95%. BREATHING EVEN AND UNLABORED. BUT PT GETS SHORT OF BREATH UPON EXERTION. NO COMPLAINTS OF PAIN OR DISCOMFORT. IV ACCESS NOTED ON R UPPER ARM MIDLINE. INTACT AND PATENT AND FLUSHING WELL NO S/S OF INFECTION OR INFILTRATION NOTED. KEPT BLE ELEVATED WITH PILLOW. PATIENT REQUIRE ASSISTANCE IN ADLS FOR SAFETY, AARON CATH PRESENT, INTACT AND PATENT AND DRAINING WITH CLEAR YELLOW URINE. SAFETY PRECAUTIONS IN PLACE. BED LOCKED AND IN LOW POSITION. SIDE RAILS UP X2. BED ALARM ON. CALL LIGHT WITHIN REACH. WILL ENDORSE TO NEXT SHIFT.
--- NOTE | 2020-04-18 19:45 | NUR ---
RN OPENING NOTES RECEIVED REPORT FROM RANGEL RNJAELYN. FOUND Pt AWAKE, RESTING IN BED. NO S/S OF ACUTE DISTRESS OR SOB NOTED. PER REPORT Pt IS A/OX3, FRENCH SPEAKING, BUT ALSO UNDERSTANDS SIMPLE [place]ENE[place]ELAN. AARON CATHETER IN PLACE. IV ACCESS ON LUIS MIDLINE, SL. SAFETY MEASURES IN PLACE. BED LOW, LOCKED, HOB ELEVATED, SIDE RAILS UP, CALL LIGHT AND BEDSIDE TABLE WITHIN REACH. BED ALARM ON. WILL CONTINUE TO MONITOR Pt's CONDITION AND SAFETY THROUGHOUT THE NIGHT.
--- NOTE | 2020-04-18 19:46 | NUR ---
RN NOTES PER DAYSHIBREANA RN Pt IS NOW REFUSING COLONOSCOPY THAT WAS SCHEDULED FOR TOMORROW & IS NOW WANTING TO LEAVE AND GO HOME TOMORROW. DAYSHIFT RN SPOKE WITH SON AND UPDATED HIM THAT HIS MOTHER IS NOW REFUSING TO HAVE COLONOSCOPY AND WANTS TO GO HOME. SON SAID HE CAN EXECUTIVE DIRECTOR [employer] MARKETING HIS MOTHER TOMORROW IF SHE WANTS TO LEAVE. PER GIOHIBREANA RN IS AWARE THAT Pt IS REFUSING COLONOSCOPY NOW. WILL CONTINUE TO MONITOR Pt.
[2020-04-18 20:00] VITALS: BP 134/71
[2020-04-18 20:30] VITALS: BP 134/71
--- NOTE | 2020-04-18 21:00 | NUR ---
RN NOTES PER DAYSHIFT RN Pt HAS BEEN REFUSING MEDS & REFUSING TO FINISH THE GOLYTLY AND REFUSING TO HAVE COLONOSCOPY DONE. Pt WISHES TO BE DISCHARGED AND GO HOME TOMORROW. WAS UNABLE TO GIVE KDUR; WAS UNAVAILABLE TO TAKE OUT IN THE [facility] DUE TO STOP TIME.
[2020-04-19 06:35] LABS: BASOPHILS # (AUTO) 0.1 /CMM (0.0-0.2); BASOPHILS % (AUTO) 1.3 % (0.0-2.0); HEMATOCRIT 24 % (33-45); HEMOGLOBIN 7.2 g/dL (11.5-14.8); MEAN CORPUSCULAR HGB CONC 30 g/dl (31.0-36.0); MEAN CORPUSCULAR VOLUME 71 fL (82-100); MONOCYTES # (AUTO) 0.6 /CMM (0.1-1.30); MONOCYTES % (AUTO) 8.4 % (2.0-12.0); NEUTROPHILS # (AUTO) 5.1 /CMM (1.8-8.9); NEUTROPHILS % (AUTO) 72.3 % (43.0-81.0); PLATELET COUNT (AUTO) 248 /CMM (150-450); RED BLOOD CELL COUNT(AUTO) 3.38 MIL/uL (4.0-5.2)
[2020-04-19 07:34] LABS: ALBUMIN 2.7 g/dL (3.4-5.0); BILIRUBIN,TOTAL 0.4 mg/dL (0.2-1.0); CALCIUM, SERUM 9.1 mg/dL (8.5-10.1); CREATININE 1.2 mg/dL (0.6-1.3); PHOSPHORUS 2.7 mg/dL (2.5-4.9); POTASSIUM 3.5 mmol/L (3.5-5.1)
--- NOTE | 2020-04-19 07:35 | NUR ---
MS RN OPENING NOTE PATIENT IN BED RESTING COMFORTABLY. PATIENT IN NO ACUTE DISTRESS. NO SOB NOTED. PATIENT BREATHING IS EVEN AND UNLABORED. SAFETY PRECAUTIONS IN PLACE. BED ALARM IS ON. PATIENT BED IS LOCKED AND IN LOWEST POSITION. CALL LIGHT WITHIN REACH. WILL CONTINUE TO MONITOR.
--- NOTE | 2020-04-19 07:41 | NUR ---
RN CLOSING NOTES NO SIGNIFICANT CHANGES IN Pt's CONDITION. Pt REMAINED STABLE PER BASELINE. NO S/S OF ACUTE DISTRESS OR SOB NOTED DURING THE NIGHT. ALL NEEDS MET AND ATTENDED TO. SAFETY MEASURES IN PLACE. ENDORSED TO DAYSHIFT RN FOR Pt's RICKIE. COLONOSCOPY CANCELLED DUE TO Pt REFUSING; Pt WANTS TO GO HOME TODAY.
[2020-04-19] MEDS: SORBITOL SOLUTION 30 ML PO SCH ×2 (08:44→12:07)
[2020-04-19] MEDS: MUPIROCIN OINT 2% 22 GM TUBE TP SCH (08:44)
--- NOTE | 2020-04-19 08:46 | NUR ---
MS RN NOTE PATIENT REFUSING 0900 SORBITOL SOLUTION, DUE TO REFUSING COLONOSCOPY. REFUSING COLONOSCOPY DESPITE EDUCATION OF RISKS VS BENEFITS.
--- NOTE | 2020-04-19 09:58 | NUR ---
MS RN NOTE DR. ROCHA SEEN AND EVALUATED PATIENT. PER MD PATIENT OKAY FOR DISCHARGE. NOTED SLIGHT HEMATURIA IN AARON CATHETER DUE TO IRRITATION FROM AARON. PER MD REMOVE AARON CATHETER AND NOTE IF ANY HEMATURIA PRESENT AFTER AARON CATHETER REMOVAL DURING PATIENT URINATION.
--- NOTE | 2020-04-19 12:07 | NUR ---
MS RN NOTE PATIENT REFUSING 0900 SORBITOL SOLUTION, DUE TO REFUSING COLONOSCOPY. REFUSING COLONOSCOPY DESPITE EDUCATION OF RISKS VS BENEFITS. PATIENT GOING BACK HOME TODAY.
--- NOTE | 2020-04-19 13:38 | NUR ---
MS RN NOTE PATIENT URINATED CLEAR YELLOW URINE, WITH NO HEMATURIA AND NO PAIN NOTED DURING URINATION.
--- NOTE | 2020-04-19 14:38 | NUR ---
MS PLANT INSPECTOR NOTE PATIENT MEDICALLY CLEARED FOR DISCHARGE. PATIENT IN NO ACUTE DISTRESS. NO SOB NOTED. PATIENT BREATHING IS EVEN AND UNLABORED. PATIENT DISCHARGE INSTRUCTIONS PROVIDED TO PATIENT AND SON. PATIENT VERBALIZED UNDERSTANDING. SON WAS ABLE TO TRANSLATE THOROUGHLY AND SON VERBALIZED UNDERSTANDING. SKIN ASSESSED, NO NEW SKIN BREAKDOWN NOTED. PATIENT ID BAND REMOVED. IVS REMOVED. PATIENT HAS BELONGINGS WITH HER, AND SIGNED BELONGINGS LIST. PATIENT KEPT CLEAN AND DRY THROUGHOUT SHIFT. NEEDS AND CONCERNS ADDRESSED. WOUND CARE PROVIDED ORDERED. PATIENT GOING HOME WITH SON AND WENT BY WHEELCHAIR TO [employer] [facility]. MD AWARE OF DISCHARGE.
[2020-05-09] MEDS ORDERED: SORBITOL SOLUTION 30 ML PO SCH (08:00)
== END 2020-04-19 15:35 | disposition home or self-care (01) | DRG 377 ==
LOC: ER 16:42 → TELE 20:12 → MED 04-14 08:15 → MEDSG2 04-16 04:15
PROVIDERS: ADMIT Hospitalist; ATTEND Internal Medicine
PROC: 30233P1 Transfusion of Nonautologous Frozen Red Cells into Peripheral Vein, Percutaneous Approach (ICD-10-PCS; 2020-04-13)
PROC: 0HDRXZZ Extraction of Toe Nail, External Approach (ICD-10-PCS; principal; 2020-04-14)
PROC: 05H933Z Insertion of Infusion Device into Right Brachial Vein, Percutaneous Approach (ICD-10-PCS; 2020-04-14)
DX: K29.71 Gastritis, unspecified, with bleeding (principal); N17.0 Acute kidney failure with tubular necrosis; I50.33 Acute on chronic diastolic (congestive) heart failure; I13.0 Hypertensive heart and chronic kidney disease with heart failure and stage 1 through stage 4 chronic kidney disease, or unspecified chronic kidney disease; D62 Acute posthemorrhagic anemia; I38 Endocarditis, valve unspecified; I48.20 Chronic atrial fibrillation, unspecified; E44.0 Moderate protein-calorie malnutrition; E78.5 Hyperlipidemia, unspecified; I48.91 Unspecified atrial fibrillation; Z79.01 Long term (current) use of anticoagulants; E87.6 Hypokalemia; N18.9 Chronic kidney disease, unspecified; E03.9 Hypothyroidism, unspecified; E11.22 Type 2 diabetes mellitus with diabetic chronic kidney disease; Z86.73 Personal history of transient ischemic attack (TIA), and cerebral infarction without residual deficits; I25.10 Atherosclerotic heart disease of native coronary artery without angina pectoris; Z68.30 Body mass index [BMI] 30.0-30.9, adult; B35.1 Tinea unguium; S90.211A Contusion of right great toe with damage to nail, initial encounter; X58.XXXA Exposure to other specified factors, initial encounter; Y92.89 Other specified places as the place of occurrence of the external cause; T50.2X5A Adverse effect of carbonic-anhydrase inhibitors, benzothiadiazides and other diuretics, initial encounter; N13.9 Obstructive and reflux uropathy, unspecified; E61.1 Iron deficiency
CPT/HCPCS: 36410; 36415; 71045-TC; 73630-TC; 80048-TC; 80053-TC; 80061-TC; 80076-TC; 81000-TC; 82378; 82550-TC; 82570-TC; 82728-TC; 83540-TC; 83735-TC; 83880; 83970; 84100-TC; 84155; 84155-TC; 84165; 84300-TC; 84439-TC; 84443-TC; 84484-TC; 84550-TC; 85025-TC; 85027-TC; 85378-TC; 85730-TC; 86850-TC; 86921-TC; 87070-TC; 87081-TC; 87186-TC; 93307-TC; C9113; G0378; J1940; J2405; J2916; J3480; J3490; J7030; J7040; J7050; P9016-BL

== ENCOUNTER 2020-06-17 00:31 | Inpatient (IN) | payer MEDICARE, OTHER ==
[~2020-06-17] VITALS: Ht 152.4 cm; Wt 75.3 kg
[2020-06-17] VITALS (28 sets, daily range): BP systolic 103–152; BP diastolic 50–91
[~2020-06-17 00:31] MED LIST changes: -ALLO100T PO; +ERGO500040 PO; +FEBU40TA3 PO; +POTA8TAB3 PO; -WARF3TAB59 PO
--- NOTE | 2020-06-17 00:55 | NUR ---
PT AAOX3. BIB SON C/O BILATERAL LEG EDEMA X2 WEEKS. Also, c/o indigestion and constipation LBM 1 week. Placed on monitor and pulse ox. vss. at bedside for eval. awaiting orders.
--- NOTE | 2020-06-17 01:10 | NUR ---
Line initiated on RAC 20G, LABS SENT.
[2020-06-17 01:21] LABS: BASOPHILS # (AUTO) 0.1 /CMM (0.0-0.2); BASOPHILS % (AUTO) 0.7 % (0.0-2.0); EOSINOPHILS % (AUTO) 0.1 % (0.0-6.0); LYMPHOCYTES # (AUTO) 1.1 /CMM (0.8-4.8); LYMPHOCYTES % (AUTO) 12.8 % (20.0-44.0); MEAN CORPUSCULAR HGB CONC 32 g/dl (31.0-36.0); MEAN CORPUSCULAR VOLUME 91 fL (82-100); MONOCYTES # (AUTO) 0.7 /CMM (0.1-1.30); MONOCYTES % (AUTO) 7.9 % (2.0-12.0); NEUTROPHILS # (AUTO) 6.7 /CMM (1.8-8.9); NEUTROPHILS % (AUTO) 78.5 % (43.0-81.0); PLATELET COUNT (AUTO) 321 /CMM (150-450); WHITE BLOOD COUNT (AUTO) 8.5 K/uL (4.3-11.0)
[2020-06-17 01:23] LABS: RED BLOOD CELL COUNT(AUTO) 1.38 MIL/uL (4.0-5.2)
[2020-06-17 01:25] LABS: HEMATOCRIT 13 % (33-45)
--- NOTE | 2020-06-17 01:33 | NUR ---
VIRAJ SENT TO LAB
[2020-06-17 01:41] LABS: ALANINE AMINOTRANSFERASE 13 U/L (12-78); ALKALINE PHOSPHATASE 59 U/L (46-116); ASPARTATE AMINOTRANSFERASE 12 U/L (15-37); B-TYPE NATRIURETIC PEPTIDE 4984 PG/ML (0-125); BILIRUBIN,DIRECT 0.1 mg/dL (0.0-0.2); BILIRUBIN,TOTAL 0.3 mg/dL (0.2-1.0); CALCIUM, SERUM 9.1 mg/dL (8.5-10.1); CARBON DIOXIDE 29 mmol/L (21-32); CHLORIDE 103 mmol/L (98-107); CREATININE 1.9 mg/dL (0.6-1.3); GLUCOSE 138 mg/dL (74-106); POTASSIUM 4.4 mmol/L (3.5-5.1); SODIUM SERUM 139 mmol/L (136-145); TOTAL PROTEIN, SERUM 5.7 g/dL (6.4-8.2)
--- NOTE | 2020-06-17 01:44 | NUR ---
SURFACE WATER MANAGER AT BEDSIDE FOR TYPE AND SCREEN
[2020-06-17] MEDS ORDERED: FEBU40TA PO (01:50)
[2020-06-17] MEDS ORDERED: MEMA10TA PO (01:50)
[2020-06-17] MEDS ORDERED: CARV3.122 PO (01:50)
[2020-06-17] MEDS ORDERED: LOSA50TA39 PO ×2 (01:50)
[2020-06-17] MEDS ORDERED: BUME1TAB8 PO (01:50)
[2020-06-17] MEDS ORDERED: SPIR25TA6 PO (01:50)
[2020-06-17] MEDS ORDERED: APIX2.5T PO (01:50)
[2020-06-17 01:51] LABS: UREA NITROGEN, BLOOD 106 mg/dL (7-18)
[2020-06-17 01:53] LABS: LYMPHOCYTES % (MANUAL) 11 % (16-48); MONOCYTES % (MANUAL) 6 % (0-11.0); NEUTROPHILS % (MANUAL) 83 (42-76)
[2020-06-17] MEDS ORDERED: MAGNESIUM HYDROXIDE 30 ML UDC PO PRN (02:30)
[2020-06-17] MEDS ORDERED: ONDANSETRON HCL/PF 4 MG/2 ML VIAL IVP PRN (02:30)
[2020-06-17] MEDS ORDERED: ACETAMINOPHEN 325 MG TABLET PO PRN (02:30)
[2020-06-17] MEDS ORDERED: MAG HYDROX/AL HYDROX/SIMETH 30 ML UDC PO PRN (02:30)
[2020-06-17] MEDS ORDERED: MORPHINE SULFATE INJ 2 MG/ML DISP.SYRIN IV PRN (02:30)
[2020-06-17] MEDS ORDERED: Z GUARD REMEDY 2 OZ OINT TP PRN (02:30)
[2020-06-17 02:37] LABS: OCCULT BLOOD STOOL POSITIVE (NEGATIVE)
--- NOTE | 2020-06-17 03:27 | NUR ---
Blood transfusion initiated.
--- NOTE | 2020-06-17 04:32 | NUR ---
REPORT GIVEN TO SONIA OLEARY FOR RICKIE
--- NOTE | 2020-06-17 04:57 | NUR ---
PT TRANSFERED PER ACLS PROTOCOL
--- NOTE | 2020-06-17 05:25 | NUR ---
Admission notes: Received report from ABELARDO byrd rn. Pt brought to the unit via gurney at 0445am. Pt a/o x3, Urdu speaking only, able to make needs known. Transferred to bed. Received with ongoing 1st unit of PRBC, started in ER at a rate of 120ml/hr. Skin assessment performed, please skin assessment log. Photos taken, attached to chart. Oriented pt to unit policy and hourly rounding, use of call light system. Pt on bedrest per MD order, bed reyes available. Tele monitoring, on afib hr 76. Inventory of belongings completed by roxi Delvalle. Vs taken and recorded. noted spo2 on ra as 88-90%, placed on 2l oxygen via nc, spo2 went up to 91% but drop to 87%, pincrease to 4L remains the same. placed on simple mask 6l spo23 went up to 99-100%. will titrate prn. Will continue monitoring pt.
--- NOTE | 2020-06-17 05:58 | NUR ---
blood transfusion completion: 1st unit prbc transfusion completed. No s/s of blood transfusion reaction noted. Pt remains afebrile. Vs remains stable. Will lemon picker the 2nd unit of prbc in lab.
--- NOTE | 2020-06-17 06:30 | NUR ---
2nd unit prbc: 2nd unit of PRBC p/u at 1620. 15mins pre-transfusion vs taken and recorded. Blood transfusion [id number] by another rn martin. Will stay with the pt for 15-30mins to monitor for any blood transfusion reaction.
--- NOTE | 2020-06-17 07:09 | NUR ---
End of shift report: Pt remains on 6L of oxygen via simple mask, denies any sob, spo2 remains 95-100%. Remain on afib controlled current hr 58. Pt a/o x3, Paraguayan speaking only. Iv access on right ac g 20 remains patent and flushing well, with ongoing 2nd unit of prbc blood transfusion. Order to draw/check cbc after completion of 2nd unit prbc. No s/s of active bleeding noted. No diarrhea noted in my shift. Pt continent uses bedpan. PLAN OF CARE: GI consult/dr guerrero. Vs remains stable, needs attended. Ble kept offloaded on pillows. Safety precautions for fall remains engaged, call light in reach, will endorse to day prabhu clemons for continuity of care.
--- NOTE | 2020-06-17 07:10 | NUR ---
Received patient in the beginning of second RBC unit transfusion.Patient awake , a/o x2-3 , O2 8 L via simple mask, saturation 96-98%. No adverse reaction noted . Will continue to monitor
[2020-06-17] MEDS ORDERED: ASPI-1420 PO (08:15)
[2020-06-17] MEDS ORDERED: MEMA21CA2 PO (08:15)
[2020-06-17] MEDS ORDERED: MEMANTINE HCL 21 MG PO SCH (09:30)
--- NOTE | 2020-06-17 10:17 | NUR ---
Received a call from . Per dr. Daugherty ; start patient on clear liquid ; if family and patient agreed to colonoscopy start to prepare patien for colonoscopy at 1700/1800. Colonoscopy will be scheduled for tomorrow am.
[2020-06-17] MEDS: PANTOPRAZOLE 40 MG VIAL IV SCH ×2 (10:33→21:28)
[2020-06-17] MEDS: LOSARTAN POTASSIUM 50 MG TABLET PO SCH ×2 (10:58→17:12)
[2020-06-17] MEDS: BUMETANIDE (1 MG) 1 MG TABLET PO SCH ×2 (10:58→17:13)
[2020-06-17] MEDS: CARVEDILOL 3.125 MG TABLET PO SCH ×2 (10:58→17:12)
[2020-06-17] MEDS: SPIRONOLACTONE 25 MG TABLET PO SCH (10:58)
[2020-06-17] MEDS: MEMANTINE HCL 5 MG TABLET PO SCH ×2 (11:04→17:13)
[2020-06-17 11:48] LABS: BASOPHILS # (AUTO) 0.1 /CMM (0.0-0.2); BASOPHILS % (AUTO) 0.7 % (0.0-2.0); EOSINOPHILS % (AUTO) 0.1 % (0.0-6.0); LYMPHOCYTES # (AUTO) 0.9 /CMM (0.8-4.8); LYMPHOCYTES % (AUTO) 8.3 % (20.0-44.0); MEAN CORPUSCULAR HGB CONC 33 g/dl (31.0-36.0); MEAN CORPUSCULAR VOLUME 89 fL (82-100); MONOCYTES % (AUTO) 9.3 % (2.0-12.0); NEUTROPHILS # (AUTO) 8.5 /CMM (1.8-8.9); NEUTROPHILS % (AUTO) 81.6 % (43.0-81.0); PLATELET COUNT (AUTO) 286 /CMM (150-450); RED BLOOD CELL COUNT(AUTO) 2.26 MIL/uL (4.0-5.2); WHITE BLOOD COUNT (AUTO) 10.4 K/uL (4.3-11.0)
[2020-06-17 11:51] LABS: HEMATOCRIT 20 % (33-45)
[2020-06-17 11:52] LABS: HEMOGLOBIN 6.5 g/dL (11.5-14.8)
--- NOTE | 2020-06-17 12:00 | NUR ---
Switch simple mask on nasal canula 3 l, patient saturating above 95%.
[2020-06-17 13:39] LABS: LYMPHOCYTES % (MANUAL) 8 % (16-48); MONOCYTES % (MANUAL) 6 % (0-11.0); NEUTROPHILS % (MANUAL) 86 (42-76)
--- NOTE | 2020-06-17 14:31 | NUR ---
Started on 3rd unit RBC . Patient tolerating well, VS are stable and at baseline
--- NOTE | 2020-06-17 17:53 | NUR ---
Started on 4th unit RBC's . Patient tolerating well.
[2020-06-17] MEDS ORDERED: PEG 3350/NA SULF,BICARB,CL/KCL 4,000 ML BOTTLE PO ONE (18:00)
--- NOTE | 2020-06-17 18:56 | NUR ---
Patient started on Golytely first 240ml , tolerated well.
--- NOTE | 2020-06-17 19:43 | NUR ---
Patient resting in bed , 4th unit RBC's transfusing. Patient on 3L O2 via NC saturating above 95%. Patient is able to use BSC with assistance. NPO after midnight for colonoscopy/EGD scheduled tomorrow at [address] Samuel. Safety precautions in place , call light within reach. Will endorse to next shift for RICKIE
--- NOTE | 2020-06-17 19:51 | NUR ---
RN OPENING NOTES Received patient A/O x4, awake on bed. On O2 via NC @ 3LPM, saturating well, denies any discomfort at this time. With ongoing 4th unit PRBC, infusing well. Reinforced to patient instructions on Golytely intake for scheduled EGD tomorrow. PT verbalized understanding. On tele monitor with controlled A-Fib noted. Kept on bed clean, dry and comfortable. Call light within easy reach. Will continue to monitor accordingly.
[2020-06-18] VITALS: BP 104/67
--- NOTE | 2020-06-18 02:00 | NUR ---
RN NOTES Enforced patient to increase Golytely intake, patient refused at this time. Per patient she feels vomiting already. Pt had consumed more than half of the total solution. BM X3 liquid, bang noted. Good perineal care done. Will continue to monitor accordingly.
[2020-06-18 04:00] VITALS: BP 120/58
[2020-06-18 06:50] LABS: BASOPHILS % (AUTO) 0.4 % (0.0-2.0); EOSINOPHILS % (AUTO) 0.2 % (0.0-6.0); HEMATOCRIT 26 % (33-45); HEMOGLOBIN 8.5 g/dL (11.5-14.8); LYMPHOCYTES # (AUTO) 0.9 /CMM (0.8-4.8); LYMPHOCYTES % (AUTO) 7.9 % (20.0-44.0); MEAN CORPUSCULAR HGB CONC 33 g/dl (31.0-36.0); MEAN CORPUSCULAR VOLUME 89 fL (82-100); MONOCYTES # (AUTO) 0.9 /CMM (0.1-1.30); MONOCYTES % (AUTO) 8.5 % (2.0-12.0); NEUTROPHILS # (AUTO) 8.9 /CMM (1.8-8.9); PLATELET COUNT (AUTO) 252 /CMM (150-450); RED BLOOD CELL COUNT(AUTO) 2.92 MIL/uL (4.0-5.2); WHITE BLOOD COUNT (AUTO) 10.8 K/uL (4.3-11.0)
--- NOTE | 2020-06-18 06:52 | NUR ---
RN NOTES Consent for colonoscopy obtained from pt's son Ted witnessed by ANYA Stone. Attempted to call Dr. Daugherty for pt's update of bowel prep: still liquid black. Unable to reach MD at this time, left a voicemail, awaiting for call back at this time.
[2020-06-18 07:17] LABS: CHOLESTEROL 92 mg/dL (<200); CREATINE KINASE, TOTAL 28 U/L (26-192); HDL CHOLESTEROL 45 mg/dL (40-60); LDL 38 mg/dL (0-99); TRIGLYCERIDES 49 mg/dL (30-150)
--- NOTE | 2020-06-18 07:18 | NUR ---
RN CLOSING NOTES Pt asleep, on O2 via NC @ 3LPM, saturating well. On A-Fib controlled noted on telemonitor. Still with black liquid stool per last bm noted around 4 am. All nursing needs attended. Kept on bed clean, dry and comfortable. Endorsed.
[2020-06-18 07:19] LABS: ALANINE AMINOTRANSFERASE 8 U/L (12-78); ALBUMIN 2.7 g/dL (3.4-5.0); ALKALINE PHOSPHATASE 59 U/L (46-116); ASPARTATE AMINOTRANSFERASE 13 U/L (15-37); CALCIUM, SERUM 8.6 mg/dL (8.5-10.1); CARBON DIOXIDE 29 mmol/L (21-32); CHLORIDE 105 mmol/L (98-107); CREATININE 1.7 mg/dL (0.6-1.3); GLUCOSE 111 mg/dL (74-106); MAGNESIUM 2.5 mg/dL (1.8-2.4); PHOSPHORUS 3.3 mg/dL (2.5-4.9); POTASSIUM 4.3 mmol/L (3.5-5.1); SODIUM SERUM 140 mmol/L (136-145); TOTAL PROTEIN, SERUM 5.3 g/dL (6.4-8.2); UREA NITROGEN, BLOOD 80 mg/dL (7-18)
--- NOTE | 2020-06-18 07:54 | NUR ---
MS RN OPENING NOTES RECEIVED PATIENT IN BED, ASLEEP. PATIENT ON OXYGEN THERAPY AT 3 LPM VIA NASAL CANNULA; BREATHING IS EVEN AND UNLABORED, NO SOB PRESENT AN THIS TIME. TELE MONITOR WITH A CURRENT READING OF AFIB HIGH 40S LOW 50S. NO S/S OF PAIN SUCH MOANING, FACIAL GRIMACING OR GUARDING. IV ACCESS ON RAC G#20 RUNNING. NPO AT THIS TIME AWAITING PROCEDURE. SAFETY PRECAUTIONS IN PLACE; BED IN LOW POSITION AND LOCKED, RAILS UP X2, CALL LIGHT WITHIN REACH. WILL CONTINUE TO MONITOR PATIENT.
[2020-06-18 08:00] VITALS: BP 101/52
[2020-06-18] MEDS: SPIRONOLACTONE 25 MG TABLET PO SCH (08:16)
[2020-06-18] MEDS: PANTOPRAZOLE 40 MG VIAL IV SCH ×2 (08:16→21:20)
[2020-06-18] MEDS: MEMANTINE HCL 5 MG TABLET PO SCH ×2 (08:17→17:56)
[2020-06-18] MEDS: CARVEDILOL 3.125 MG TABLET PO SCH ×2 (08:17→17:00)
[2020-06-18] MEDS: LOSARTAN POTASSIUM 50 MG TABLET PO SCH (08:17)
[2020-06-18] MEDS: BUMETANIDE (1 MG) 1 MG TABLET PO SCH (08:17)
[2020-06-18] MEDS: FUROSEMIDE 40 MG/4 ML VIAL IV SCH ×3 (08:30→16:30)
--- NOTE | 2020-06-18 09:18 | NUR ---
CLOTH CARRIER NOTES TRIED TO REACH DR CHAN BY TXT AND CALL BUT NO REPLY. PATIENT IS HAVING A PROCEDURE TODAY BUT DIDN'T FINISH HER INTESTINE PREP; SHE ONLY HAD HALF GALLON. DOESN'T WANT TO DRINK IT ANYMORE AND DOESN'T WANT NG TUBE BECAUSE TOO MUCH LIQUIDS MAKES HER NAUSEATED AND VOMIT. CONTACTED ATTENDING PHYSICIAN FOR FURTHER INSTRUCTIONS.
--- NOTE | 2020-06-18 10:40 | NUR ---
LIVE STUDY MANAGER NOTES ADMINISTERED 2 TAP WATER ENEMAS PER MD ORDER FOR COLONOSCOPY PREP. WILL CONTINUE TO MONITOR PATIENT.
[2020-06-18] MEDS ORDERED: ANESTHESIA TRAY IN PYXIS 1 EA TRAY MC ONE (10:46)
[2020-06-18] MEDS ORDERED: MIDAZOLAM HCL 2 MG/2ML VIAL ONE (10:56)
--- NOTE | 2020-06-18 11:00 | NUR ---
OPERATOR RECEPTIONIST NOTES PATIENT TAKEN IN FOR PROCEDURE.
--- NOTE | 2020-06-18 12:44 | NUR ---
ASSET ADMINISTRATOR NOTES PATIENT BACK FROM PROCEDURE IN MEDICALLY STABLE CONDITION. VS: BP 111/56 HR 54 TEMP 97.8 O2 98% ON 2 LPM VIA NASAL CANNULA. WILL CONTINUE TO MONITOR PATIENT.
--- NOTE | 2020-06-18 14:35 | NUR ---
INFORMATION SYSTEMS ADMINISTRATOR NOTES PER PHARMACY, ASKED PATIENT AND PATIENT'S FAMILY REGARDING MEDICATION ULORIC AND IT'S AVAILABILITY. PATIENT DOESN'T REMEMBER AND PATIENT'S SON AFTER CHECKING MEDICATION BOX DID NOT FIND IT AND ALSO DOES NOT REMEMBER IF PATIENT IS TAKING IT AT HOME.
[2020-06-18 16:00] VITALS: BP 105/44
--- NOTE | 2020-06-18 16:45 | NUR ---
ORDER PROCESSOR NOTES PATIENT'S BLOOD PRESSURE IS DECREASED 105/44. 16:30 LASIX NON-ADMINISTERED FOR NOW. WILL CONTINUE TO MONITOR PATIENT.
--- NOTE | 2020-06-18 19:05 | NUR ---
MS OLEARY OPENING NOTES PATIENT IN BED, ASLEEP. PATIENT ON OXYGEN THERAPY AT 3 LPM VIA NASAL CANNULA; BREATHING IS EVEN AND UNLABORED, NO SOB PRESENT AN THIS TIME. TELE MONITOR WITH A CURRENT READING OF AFIB 57. NO S/S OF PAIN SUCH MOANING, FACIAL GRIMACING OR GUARDING. IV ACCESS ON RAC G#20. ON REGULAR DIET AT THIS TIME. ALL NEEDS ATTENDED POST PROCEDURE AND THROUGHOUT THE DAY. SAFETY PRECAUTIONS IN PLACE; BED IN LOW POSITION AND LOCKED, RAILS UP X2, CALL LIGHT WITHIN REACH. WILL ENDORSE TO GRANULAR OPERATOR NURSE. Addendum: 06/18/20 at 1907 by HENNA VASQUEZ RN MS OLEARY CLOSING NOTES PATIENT IN BED, ASLEEP. PATIENT ON OXYGEN THERAPY AT 3 LPM VIA NASAL CANNULA; BREATHING IS EVEN AND UNLABORED, NO SOB PRESENT AN THIS TIME. TELE MONITOR WITH A CURRENT READING OF AFIB 57. NO S/S OF PAIN SUCH MOANING, FACIAL GRIMACING OR GUARDING. IV ACCESS ON RAC G#20. ON REGULAR DIET AT THIS TIME. ALL NEEDS ATTENDED POST PROCEDURE AND THROUGHOUT THE DAY. SAFETY PRECAUTIONS IN PLACE; BED IN LOW POSITION AND LOCKED, RAILS UP X2, CALL LIGHT WITHIN REACH. WILL ENDORSE TO GRANULAR OPERATOR NURSE.
--- NOTE | 2020-06-18 19:33 | NUR ---
ENVIRONMENTAL LAWYER NOTES PATIENT IN BED, AWAKE, ALERT AND ORIENTED X 3. BREATHING EVEN AND UNLABORED ON 2NC. SHOWS NO SIGNS OF ACUTE RESPIRATORY DISTRESS, NO ACUTE PAIN. TELE MONITOR AFIB CONTROLLED WITH 60. IV ON RAC 20G ITS CLEAN DRY AND INTACT. SHOWS NO SIGNS OF INFILTRATION, NO REDNESS. SAFETY PRECAUTIONS IN PLACE. BED IN LOWEST POSITION, LOCKED, AND CALL LIGHT KEPT WITHIN REACH. WILL CONTINUE TO MONITOR.
[2020-06-18 20:00] VITALS: BP 108/57
[2020-06-19] VITALS (7 sets, daily range): BP systolic 109–134; BP diastolic 52–96
--- NOTE | 2020-06-19 01:50 | NUR ---
RN NOTES, RECEIVED PATIENT FOR CONTINUATION OF CARE FROM MAMTA EPSTEIN PATIENT IN BED SLEEPING AT THIS TIME, WITH STABLE VITAL SIGNS, NO SOB/ACUTE DISTRESS NOTED AT THIS TIME.
[2020-06-19 07:00] LABS: BASOPHILS % (AUTO) 0.2 % (0.0-2.0); EOSINOPHILS % (AUTO) 0.6 % (0.0-6.0); HEMATOCRIT 27 % (33-45); HEMOGLOBIN 8.6 g/dL (11.5-14.8); LYMPHOCYTES # (AUTO) 0.6 /CMM (0.8-4.8); LYMPHOCYTES % (AUTO) 6.8 % (20.0-44.0); MEAN CORPUSCULAR HGB CONC 32 g/dl (31.0-36.0); MEAN CORPUSCULAR VOLUME 90 fL (82-100); MONOCYTES # (AUTO) 0.7 /CMM (0.1-1.30); MONOCYTES % (AUTO) 8.6 % (2.0-12.0); NEUTROPHILS # (AUTO) 6.9 /CMM (1.8-8.9); NEUTROPHILS % (AUTO) 83.8 % (43.0-81.0); PLATELET COUNT (AUTO) 235 /CMM (150-450); RED BLOOD CELL COUNT(AUTO) 2.96 MIL/uL (4.0-5.2); WHITE BLOOD COUNT (AUTO) 8.2 K/uL (4.3-11.0)
--- NOTE | 2020-06-19 07:00 | NUR ---
RN CLOSING NOTES, PATIENT SLEEPING AT THIS TIME, BUT AROUSES EASILY TO VERBAL STIMULI, CONT ON O2 3LPM VIA NC, NO SOB/ACUTE DISTRESS NOTED, NO SIGNIFICANT CHANGE IN CONDITION DURING THE NIGHT, WILL ENDORSE CONTINUITY OF CARE TO ONCOMING NURSE.
[2020-06-19 07:26] LABS: CREATINE KINASE, TOTAL 15 U/L (26-192); FERRITIN 51 ng/mL (8-388)
[2020-06-19 07:28] LABS: IRON, SERUM 16 ug/dl (50-175); TOTAL IRON BINDING CAPACITY 335 ug/dl (250-450)
[2020-06-19 07:34] LABS: ALANINE AMINOTRANSFERASE 7 U/L (12-78); ALBUMIN 2.6 g/dL (3.4-5.0); ALKALINE PHOSPHATASE 58 U/L (46-116); ASPARTATE AMINOTRANSFERASE 11 U/L (15-37); BILIRUBIN,TOTAL 0.9 mg/dL (0.2-1.0); CALCIUM, SERUM 8.6 mg/dL (8.5-10.1); CARBON DIOXIDE 28 mmol/L (21-32); CHLORIDE 107 mmol/L (98-107); CREATININE 1.4 mg/dL (0.6-1.3); GLUCOSE 105 mg/dL (74-106); MAGNESIUM 2.5 mg/dL (1.8-2.4); PHOSPHORUS 3.4 mg/dL (2.5-4.9); POTASSIUM 4.2 mmol/L (3.5-5.1); SODIUM SERUM 141 mmol/L (136-145); TOTAL PROTEIN, SERUM 5.4 g/dL (6.4-8.2); UREA NITROGEN, BLOOD 61 mg/dL (7-18)
--- NOTE | 2020-06-19 07:55 | NUR ---
RN MED-SURG OPENING NOTE RECEIVED PT IN BED ALERT, AWAKE AND ORIENTED x3. PT SPEAKS MACEDONIAN AND NEPALESE. PT IS ON 3L OF OXYGEN VIA N/C SATURATING AT 98% AT THIS TIME. PT NOTED WITH BLE EDEMA. PT ON TELE MONITORING, PT HAS CONTROLLED A-FIB HR 76 AT THIS TIME. HOB ELEVATED TOLERATED. PT HAS A RIGHT AC 20' INTACT, PATENT AND FLUSHED WELL. PT'S V/S WITHIN NORMAL RANGE WITH NO ACUTE DISTRESS NOTED AT THIS TIME. PT IS FULL CODE. ALL SAFETY MEASURES IMPLEMENTED AT ALL TIMES. BED LOCKED AND IN LOWEST POSITION. CALL LIGHT WITHIN REACH AND FUNCTIONING. WILL CONTINUE TO MONITOR AND ASSESS PT.
[2020-06-19 09:06] LABS: PTH, INTACT 59 pg/mL (15-65)
[2020-06-19] MEDS: MEMANTINE HCL 5 MG TABLET PO SCH ×2 (09:16→17:29)
[2020-06-19] MEDS: CARVEDILOL 3.125 MG TABLET PO SCH ×2 (09:19→17:00)
[2020-06-19] MEDS: SPIRONOLACTONE 25 MG TABLET PO SCH (09:19)
[2020-06-19] MEDS: PANTOPRAZOLE 40 MG VIAL IV SCH ×2 (09:20→21:20)
--- NOTE | 2020-06-19 13:01 | NUR ---
RN MED-SURG NOTE PT ON TELE MONITORING. PT WAS NOTED WITH A-FLUTTER FROM SINUS RHYTHM. ASKED PT IF SHE HAS ANY CHEST PAIN OR PAIN IN GENERAL. PT DENIES ANY PAIN AT THE MOMENT. NO SIGNS OR SYMPTOMS OF DISCOMFORT NOTED. CALL LIGHT WITHIN REACH AND FUNCTIONING. FREQUENT MONITORING PROVIDED TO ENSURE PT SAFETY. BED LOCKED AND IN LOWEST POSITION. WILL CONTINUE TO MONITOR AND ASSESS PT.
--- NOTE | 2020-06-19 18:47 | NUR ---
RN MED-SURG CLOSING NOTE PT IS CURRENTLY IN BED AWAKE AND ALERT x3. PT IS ABLE TO MAKE HER NEEDS KNOW. PT SPEAKS TURKISH WITH LIMITED BELARUSIAN. PT IS ON TELE MONITORING WITH F-FLUTTER NOTED. PT HAS CONTROLLED A-FIB. PT IS ON 3lL OF OXYGEN VIA N/C SATURATING AT 100% AT THIS TIME. PT'S RIGHT AC 20' INTACT, PATENT AND FLUSHED WELL. PT'S SKIN IS INTACT. V/S WITHIN NORMAL RANGE WITH NO ACUTE DISTRESS NOTED AT THIS. NO SOB NOTED. PT KEPT CLEAN, DRY AND COMFORTABLE. ALL NEEDS MET AND ATTENDED TOO. CALL LIGHT WITHIN REACH AND FUNCTIONING. BED LOCKED AND IN LOWEST POSITION. WILL ENDORSE TO NEXT SHIFT NURSE TO [facility].
--- NOTE | 2020-06-19 19:30 | NUR ---
RN OPENING NOTES, PATIENT IN BED AWAKE AND A/O x3, ABLE TO VERBALIZE NEED AND CONCERNS, SERBIAN SPEAKING BUT UNDERSTAND SOME FRENCH, ON 3lL OF OXYGEN VIA N/C SATURATING AT 100% AT THIS TIME, NO SOB/ACUTE DISTRESS NOTED, ON TELE MONITOR, AFIB CONTROLLED AT THIS TIME, IV ACCESS ON RIGHT AC 20G INTACT, PATENT AND INTACT, PT KEPT CLEAN, DRY AND COMFORTABLE, ALL NEEDS MET AND ATTENDED, CALL LIGHT WITHIN REACH, BED LOCKED AND LOWEST POSITION, WILL CONTINUE TO MONITOR CLOSELY.
[2020-06-20] VITALS: BP 120/66
[2020-06-20 00:56] VITALS: BP 120/66
[2020-06-20 04:00] VITALS: BP 126/61
[2020-06-20 04:44] VITALS: BP 126/61
--- NOTE | 2020-06-20 06:45 | NUR ---
RN OPENING NOTES, PATIENT IN BED AWAKE AND A/Ox3, ABLE TO VERBALIZE NEED AND CONCERNS, CONT ON 3lL OF OXYGEN VIA N/C WITH OPTIMAL O2 SAT LEVEL AT THIS TIME, NO SOB/ACUTE DISTRESS NOTED, CONT AFIB CONTROLLED ON TELE MONITOR , NO SIGNIFICANT CHANGE IN CONDITION DURING THE NIGHT, PT KEPT CLEAN, DRY AND COMFORTABLE, ALL NEEDS MET AND ATTENDED, CALL LIGHT WITHIN REACH, BED LOCKED AND LOWEST POSITION, WILL ENDORSE CONTINUITY OF CARE TO ONCOMING NURSE.
[2020-06-20 07:13] LABS: BASOPHILS # (AUTO) 0.1 /CMM (0.0-0.2); BASOPHILS % (AUTO) 0.8 % (0.0-2.0); EOSINOPHILS % (AUTO) 1.6 % (0.0-6.0); HEMATOCRIT 28 % (33-45); HEMOGLOBIN 8.8 g/dL (11.5-14.8); LYMPHOCYTES # (AUTO) 0.8 /CMM (0.8-4.8); LYMPHOCYTES % (AUTO) 11.7 % (20.0-44.0); MEAN CORPUSCULAR HGB CONC 32 g/dl (31.0-36.0); MEAN CORPUSCULAR VOLUME 91 fL (82-100); MONOCYTES # (AUTO) 0.6 /CMM (0.1-1.30); MONOCYTES % (AUTO) 8.7 % (2.0-12.0); NEUTROPHILS % (AUTO) 77.2 % (43.0-81.0); PLATELET COUNT (AUTO) 242 /CMM (150-450); RED BLOOD CELL COUNT(AUTO) 3.03 MIL/uL (4.0-5.2); WHITE BLOOD COUNT (AUTO) 6.5 K/uL (4.3-11.0)
[2020-06-20 07:48] LABS: CALCIUM, SERUM 8.9 mg/dL (8.5-10.1); CREATININE 1.1 mg/dL (0.6-1.3); MAGNESIUM 2.3 mg/dL (1.8-2.4); PHOSPHORUS 3.1 mg/dL (2.5-4.9); POTASSIUM 4.4 mmol/L (3.5-5.1)
[2020-06-20 08:00] VITALS: BP 133/67
[2020-06-20 08:35] LABS: PTH, INTACT 43 pg/mL (15-65)
[2020-06-20] MEDS: PANTOPRAZOLE 40 MG VIAL IV SCH (08:43)
[2020-06-20] MEDS: SPIRONOLACTONE 25 MG TABLET PO SCH (08:43)
[2020-06-20 08:45] VITALS: BP 133/47
[2020-06-20] MEDS: CARVEDILOL 3.125 MG TABLET PO SCH (08:45)
[2020-06-20] MEDS: MEMANTINE HCL 5 MG TABLET PO SCH (08:46)
--- NOTE | 2020-06-20 10:45 | NUR ---
MS RN NOTES PATIENT IN BED A/OX4 SYRIAN SPEAKER. COMFORTABLE NO SOB OR DISCOMFORT NOTED AT THIS TIME. SINUS SREEKANTH 57 . IV SITE PATENT AND FLUSHED WELL. WILL CONTINUE TO MONITOR.
--- NOTE | 2020-06-20 11:55 | NUR ---
MS RN NOTES NOTIFIED SON MINDY [phone] THAT HER MOTHER IS READY FOR DISCHARGED. HE STATED THAT HE WILL PICK HER UP AT 1230.
--- NOTE | 2020-06-20 13:05 | NUR ---
MS RN NOTES PATIENT IS TRANSFERRED TO THE [facility] VIA WHEELCHAIR BY CUONG . SON MINDY AT [facility] TO PICK HER UP. ALL BELONGINGS RETURNED AND PAPER SIGNED AND PLACED IN THE CHART. SKIN IS INTACT. IV BAND REMOVED. REFUSED VACCINES. NO SOB OR DISCOMFORT NOTED AT THIS TIME. PATIENT IS ABLE TO AMBULATE WITH ASSIST.
[2020-06-20] MEDS ORDERED: SOD FERRIC GLUC 125 MG in IV NS 0.9% 100 ML IV SCH (14:00)
[2020-06-21 06:20] LABS: *SPE A/G RATIO 1.2 (0.7-1.7); *SPE ALBUMIN 2.8 g/dL (2.9-4.4); *SPE ALPHA-1-GLOBULIN 0.3 g/dL (0.0-0.4); *SPE ALPHA-2-GLOBULIN 0.6 g/dL (0.4-1.0); *SPE BETA GLOBULIN 0.8 g/dL (0.7-1.3); *SPE GLOBULIN, TOTAL 2.3 g/dL (2.2-3.9); *SPE M-SPIKE Not Observed g/dL (Not Observed); *SPEGAMMA GLOBULIN 0.6 g/dL (0.4-1.8)
[2020-06-21 06:20] LABS: *SPE A/G RATIO 1.2 (0.7-1.7); *SPE ALBUMIN 2.7 g/dL (2.9-4.4); *SPE ALPHA-1-GLOBULIN 0.3 g/dL (0.0-0.4); *SPE ALPHA-2-GLOBULIN 0.6 g/dL (0.4-1.0); *SPE BETA GLOBULIN 0.7 g/dL (0.7-1.3); *SPE GLOBULIN, TOTAL 2.2 g/dL (2.2-3.9); *SPE M-SPIKE Not Observed g/dL (Not Observed); *SPEGAMMA GLOBULIN 0.6 g/dL (0.4-1.8)
== END 2020-06-20 13:10 | disposition home or self-care (01) | DRG 393 ==
LOC: ER 00:31 → TELE 03:49 → MED 06-20 08:51
PROVIDERS: ADMIT Hospitalist; ATTEND Internal Medicine
PROC: 30233N1 Transfusion of Nonautologous Red Blood Cells into Peripheral Vein, Percutaneous Approach (ICD-10-PCS; principal; 2020-06-17)
PROC: 0DB68ZX Excision of Stomach, Via Natural or Artificial Opening Endoscopic, Diagnostic (ICD-10-PCS; 2020-06-18)
PROC: 30233N1 Transfusion of Nonautologous Red Blood Cells into Peripheral Vein, Percutaneous Approach (ICD-10-PCS; 2020-06-18)
PROC: 0DB98ZX Excision of Duodenum, Via Natural or Artificial Opening Endoscopic, Diagnostic (ICD-10-PCS; 2020-06-18)
PROC: 0DB68ZX Excision of Stomach, Via Natural or Artificial Opening Endoscopic, Diagnostic (ICD-10-PCS; 2020-06-18)
PROC: 0DBM8ZZ Excision of Descending Colon, Via Natural or Artificial Opening Endoscopic (ICD-10-PCS; 2020-06-18)
DX: K63.5 Polyp of colon (principal); N17.0 Acute kidney failure with tubular necrosis; I50.33 Acute on chronic diastolic (congestive) heart failure; J96.90 Respiratory failure, unspecified, unspecified whether with hypoxia or hypercapnia; I13.0 Hypertensive heart and chronic kidney disease with heart failure and stage 1 through stage 4 chronic kidney disease, or unspecified chronic kidney disease; E44.0 Moderate protein-calorie malnutrition; K29.70 Gastritis, unspecified, without bleeding; K57.30 Diverticulosis of large intestine without perforation or abscess without bleeding; K64.8 Other hemorrhoids; D64.9 Anemia, unspecified; N18.9 Chronic kidney disease, unspecified; Z79.899 Other long term (current) drug therapy; E78.5 Hyperlipidemia, unspecified; I25.10 Atherosclerotic heart disease of native coronary artery without angina pectoris; Z79.01 Long term (current) use of anticoagulants; Z86.73 Personal history of transient ischemic attack (TIA), and cerebral infarction without residual deficits; Z91.19 Patient's noncompliance with other medical treatment and regimen; Z79.82 Long term (current) use of aspirin; I48.91 Unspecified atrial fibrillation; E03.9 Hypothyroidism, unspecified; K25.9 Gastric ulcer, unspecified as acute or chronic, without hemorrhage or perforation
CPT/HCPCS: 36415; 71045-TC; 80048-TC; 80053-TC; 80061-TC; 80076-TC; 82272-TC; 82550-TC; 82728-TC; 83540-TC; 83735-TC; 83880; 83970; 84100-TC; 84155; 84165; 84484-TC; 85025-TC; 85027-TC; 85730-TC; 86850-TC; 86921-TC; 87081-TC; 88305-TC; 88313-TC; 88342; C9113; G0378; J1940; J2250; J2270; J2370; J2704; J2916; J7030; J7050; P9016-BL

== ENCOUNTER 2020-07-30 02:27 | Emergency (ER) | payer MEDICARE, OTHER ==
[~2020-07-30] VITALS: Ht 154.9 cm; Wt 59.0 kg
[~2020-07-30 02:27] MED LIST changes: +ASPI-1420 PO; +BUME1TAB8 PO; +CARV3.122 PO; -ERGO500040 PO; +FEBU40TA PO; -FEBU40TA3 PO; -FURO-144 PO; -LOSA-22 PO; +LOSA50TA39 PO; +MEMA21CA2 PO; +SPIR25TA6 PO
[2020-07-30 02:30] VITALS: BP 140/75
--- NOTE | 2020-07-30 03:02 | NUR ---
RADIOLOGY AT BEDSIDE FOR CXR
== END 2020-07-30 04:11 | disposition home or self-care (01) ==
LOC: ER 02:31
DX: S63.591A Other specified sprain of right wrist, initial encounter (principal); R22.31 Localized swelling, mass and lump, right upper limb; I10 Essential (primary) hypertension; Z98.890 Other specified postprocedural states; Z79.82 Long term (current) use of aspirin; Z79.899 Other long term (current) drug therapy; W01.0XXA Fall on same level from slipping, tripping and stumbling without subsequent striking against object, initial encounter; Y93.89 Activity, other specified; Y92.098 Other place in other non-institutional residence as the place of occurrence of the external cause; Y99.8 Other external cause status
CPT/HCPCS: 73110; 73130-TC

== ENCOUNTER 2021-03-23 03:36 | Inpatient (IN) | payer MEDICARE, OTHER ==
[2021-03-23] VITALS (7 sets, daily range): BP systolic 148–158; BP diastolic 66–95
[~2021-03-23] VITALS: Ht 154.9 cm; Wt 56.4 kg
--- NOTE | 2021-03-23 03:45 | NUR ---
BIB SON FOR C/O RLE PAIN. NO REDNESS OR BRUISES, NO TRAUMA.
--- NOTE | 2021-03-23 03:49 | NUR ---
DR PALACIOS AT [facility] SIDE
[2021-03-23] MEDS ORDERED: IBUPROFEN 400 MG TABLET ONE (03:55)
[2021-03-23] MEDS ORDERED: IBUPROFEN 400 MG TABLET PO ONE (04:00)
--- NOTE | 2021-03-23 04:10 | NUR ---
RAD AT BED SIDE
[2021-03-23 04:15] LABS: CALCIUM, SERUM 9.1 mg/dL (8.5-10.1); CARBON DIOXIDE 29 mmol/L (21-32); CHLORIDE 103 mmol/L (98-107); CREATININE 1.6 mg/dL (0.6-1.3); GLUCOSE 139 mg/dL (74-106); POTASSIUM 4.1 mmol/L (3.5-5.1); SODIUM SERUM 139 mmol/L (136-145); UREA NITROGEN, BLOOD 43 mg/dL (7-18)
[2021-03-23 04:23] LABS: BASOPHILS % (AUTO) 0.9 % (0.0-2.0); EOSINOPHILS % (AUTO) 2.7 % (0.0-6.0); LYMPHOCYTES # (AUTO) 0.8 /CMM (0.8-4.8); LYMPHOCYTES % (AUTO) 15.7 % (20.0-44.0); MEAN CORPUSCULAR HGB CONC 32 g/dl (31.0-36.0); MEAN CORPUSCULAR VOLUME 71 fL (82-100); MONOCYTES # (AUTO) 0.5 /CMM (0.1-1.30); MONOCYTES % (AUTO) 9.4 % (2.0-12.0); NEUTROPHILS # (AUTO) 3.8 /CMM (1.8-8.9); NEUTROPHILS % (AUTO) 71.3 % (43.0-81.0); PLATELET COUNT (AUTO) 267 /CMM (150-450); RED BLOOD CELL COUNT(AUTO) 2.56 MIL/uL (4.0-5.2); WHITE BLOOD COUNT (AUTO) 5.4 K/uL (4.3-11.0)
--- NOTE | 2021-03-23 04:24 | NUR ---
US TECH AT BED SIDE
[2021-03-23 04:28] LABS: ALANINE AMINOTRANSFERASE 19 U/L (12-78); ALBUMIN 3.3 g/dL (3.4-5.0); ALKALINE PHOSPHATASE 136 U/L (46-116); ASPARTATE AMINOTRANSFERASE 23 U/L (15-37); B-TYPE NATRIURETIC PEPTIDE 3342 PG/ML (0-125); BILIRUBIN,DIRECT 0.1 mg/dL (0.0-0.2); BILIRUBIN,TOTAL 0.3 mg/dL (0.2-1.0); TOTAL PROTEIN, SERUM 6.7 g/dL (6.4-8.2)
[2021-03-23 04:30] LABS: HEMATOCRIT 18 % (33-45); HEMOGLOBIN 5.7 g/dL (11.5-14.8)
[2021-03-23] MEDS ORDERED: HYDROCODONE/APAP 5/325MG TABLET ONE (04:44)
[2021-03-23 04:46] LABS: HEMOGLOBIN 6.2 g/dL (11.5-14.8)
[2021-03-23] MEDS ORDERED: HYDROCODONE/APAP 5/325MG TABLET PO ONE (05:00)
[2021-03-23] MEDS ORDERED: MAGN400T8 PO (05:04)
[2021-03-23] MEDS ORDERED: FURO-144 PO (05:04)
[2021-03-23] MEDS ORDERED: ESOM40CA PO (05:04)
[2021-03-23 05:08] LABS: OCCULT BLOOD STOOL NEGATIVE (NEGATIVE)
[2021-03-23 05:47] LABS: EOSINOPHILS % (MANUAL) 3 % (0-4); LYMPHOCYTES % (MANUAL) 10 % (16-48); MONOCYTES % (MANUAL) 6 % (0-11.0); NEUTROPHILS % (MANUAL) 81 (42-76)
[2021-03-23] MEDS ORDERED: MORPHINE SULFATE INJ 4 MG/ML DISP.SYRIN ONE (05:57)
[2021-03-23] MEDS ORDERED: MORPHINE SULFATE INJ 4 MG/ML DISP.SYRIN IV PRN (06:00)
--- NOTE | 2021-03-23 06:04 | NUR ---
BLOOD TRANSFUSION STARTED. IDENTIFICATION VERIFICATION DONE BY 2 RNS. VSS. PT REMAINED ON MONITOR.
--- NOTE | 2021-03-23 06:13 | NUR ---
REPORT GIVEN TO ECTOR ON THIRD FLOOR
--- NOTE | 2021-03-23 06:27 | NUR ---
on ongoing blood transfusion. no reaction noted. VSS. no SOB, no c/o flank pain, remained afebrile. will cont to monitor,
[2021-03-23] MEDS ORDERED: Z GUARD REMEDY 2 OZ OINT TP PRN (06:30)
[2021-03-23] MEDS ORDERED: ACETAMINOPHEN 325 MG TABLET PO PRN (06:30)
[2021-03-23] MEDS ORDERED: ONDANSETRON HCL/PF 4 MG/2 ML VIAL IVP PRN (06:30)
[2021-03-23] MEDS ORDERED: ZOLPIDEM TARTRATE 5 MG TABLET PO PRN (06:30)
[2021-03-23] MEDS ORDERED: PANTOPRAZOLE 40 MG VIAL IV SCH (06:30)
--- NOTE | 2021-03-23 06:47 | NUR ---
pt was trasnferred to 310 under ACLS
--- NOTE | 2021-03-23 07:00 | NUR ---
Patient was admitted to room 310-1 on [facility]. A&Ox3. Vital signs WNL. No c/o SOB, fatigue or pain. Only complaint is of R foot pain when walking. Bilateral lower legs and feet are edematous 2+ pitting. Pupils are equal and reactive to light, facial movement is symmetrical, no JVD. Heart rate is regular but rhythm is not, monitor in ER showed Afib. Lung sounds at bases are slightly diminished but otherwise lung sounds are clear. Abdomen flat, soft, with active bowel sounds x4 quadrants. Urine clear, yellow, with no foul odor. Skin Intact. Legs mildly weak. Able to ambulate with 1 person assist. Blood transfusing well, no adverse reactions, VSS. Will continue to monitor and with plan of care.
--- NOTE | 2021-03-23 07:30 | NUR ---
RN MS NOTES PT IN BED, AWAKE, ALERT AND ORIENTED, NOT IN DISTRESS, CITIZEN OF [place] SPEAKING BUT IS ABLE TO MAKE NEEDS KNOWN IN [place], STATES THAT SHE HAS RIGHT FOOT PAIN WHEN WALKING, NO OTHER COMPLAINT NOTED, PT CURRENTLY RECEIVING BLOOD TRANSFUSION, TOLERATING WELL, VITAL SIGNS STABLE, CALL LIGHT WITHIN REACH.
[2021-03-23 08:07] LABS: FERRITIN 6 ng/mL (8-388); IRON, SERUM 10 ug/dl (50-175); TOTAL IRON BINDING CAPACITY 462 ug/dl (250-450)
--- NOTE | 2021-03-23 08:40 | NUR ---
RN MS NOTES PT COMPLETED 1 UNIT PRBC TRANSFUSION, NO ADVERSE REACTION NOTED, VITAL SIGNS REMAIN STABLE, ASSISTED PT TO BATHROOM, PT ABLE TO WALK WITH SLOW AND STEADY GAIT USING A WALKER WITH MINIMAL ASSISTANCE, CONTINENT OF BLADDER FUNCTIONS.
--- NOTE | 2021-03-23 09:00 | NUR ---
RN MS NOTES PT SEEN AND EXAMINED BY DR. VU, ORDERS GIVEN.
[2021-03-23] MEDS: SOD FERRIC GLUC 125 MG in IV NS 0.9% 100 ML IV SCH (14:57)
[2021-03-23 15:27] LABS: BILIRUBIN,URINE NEGATIVE (NEGATIVE); COLOR,URINE YELLOW (YELLOW); LEUKOCYTE ESTERASE ,URINE NEGATIVE (NEGATIVE); NITRITE, URINE NEGATIVE (NEGATIVE); PROTEIN,URINE NEGATIVE (NEGATIVE); UGLUCOSE NEGATIVE (NEGATIVE); UROBILINOGEN,URINE 0.2 EU/dL (0.2)
[2021-03-23 16:08] LABS: EOSINOPHIL,URINE None Seen
[2021-03-23] MEDS: LOSARTAN POTASSIUM 50 MG TABLET PO SCH (16:45)
--- NOTE | 2021-03-23 18:33 | NUR ---
MS RN CLOSING NOTES Patient is currently sleeping but easy to wake with noise or touch. She states she is tired from being in ER since early hours of the morning. Denies pain or discomfort in R foot unless ambulating. No adverse reactions from blood transfusion. denies SOB, dizziness, lightheadedness, or being fatigued easily. Tolerating clear liquid diet well -no further episodes of emesis.
--- NOTE | 2021-03-23 19:55 | NUR ---
MS/RN OPENING NOTE RECEIVED PATIENT SLEEPING IN BED. ALERT AND ORIENTED X 3 - PRIMARILY IRAQI SPEAKING. NO C/O PAIN AT THIS TIME. IV ACCESS TO RIGHT AC INTACT, PATENT AND SALINE LOCKED. CONTINUES ON CLEAR LIQUID DIET. CALL LIGHT WITHIN REACH. ASPIRATION, FALL AND SAFETY PRECAUTIONS MAINTAINED. WILL CONTINUE TO MONITOR.
--- NOTE | 2021-03-24 01:46 | NUR ---
MS/RN NOTE PATIENT WITH C/O INSOMNIA. GIVEN PRN AMBIEN WITH PENDING EFFECT.
--- NOTE | 2021-03-24 02:08 | NUR ---
MS/RN NOTE PATIENT CURRENTLY SLEEPING IN BED. WILL CONTINUE TO MONITOR.
[2021-03-24] MEDS: HYDROCODONE/APAP 5/325MG TABLET PO PRN ×3 (04:42→23:26)
--- NOTE | 2021-03-24 06:25 | NUR ---
MS/RN CLOSING NOTE PATIENT CURRENTLY SLEEPING IN BED. ALERT AND ORIENTED X 3 - PRIMARILY MALAY SPEAKING. NO C/O PAIN AT THIS TIME. IV ACCESS TO RIGHT AC INTACT, PATENT AND SALINE LOCKED. CONTINUES ON CLEAR LIQUID DIET. CALL LIGHT WITHIN REACH. ASPIRATION, FALL AND SAFETY PRECAUTIONS MAINTAINED. WILL ENDORSE PLAN OF CARE TO ONCOMING SHIFT.
[2021-03-24 06:32] LABS: BASOPHILS % (AUTO) 0.5 % (0.0-2.0); EOSINOPHILS % (AUTO) 1.7 % (0.0-6.0); HEMATOCRIT 25 % (33-45); HEMOGLOBIN 7.7 g/dL (11.5-14.8); LYMPHOCYTES # (AUTO) 0.5 /CMM (0.8-4.8); LYMPHOCYTES % (AUTO) 7.4 % (20.0-44.0); MEAN CORPUSCULAR HGB CONC 31 g/dl (31.0-36.0); MEAN CORPUSCULAR VOLUME 75 fL (82-100); MONOCYTES # (AUTO) 0.4 /CMM (0.1-1.30); MONOCYTES % (AUTO) 5.9 % (2.0-12.0); NEUTROPHILS # (AUTO) 6.3 /CMM (1.8-8.9); NEUTROPHILS % (AUTO) 84.5 % (43.0-81.0); PLATELET COUNT (AUTO) 256 /CMM (150-450); RED BLOOD CELL COUNT(AUTO) 3.27 MIL/uL (4.0-5.2); WHITE BLOOD COUNT (AUTO) 7.4 K/uL (4.3-11.0)
[2021-03-24 08:00] VITALS: BP 146/64
--- NOTE | 2021-03-24 08:00 | NUR ---
RN OPENING NOTE PATIENT AWAKE IN BED RESTING. A/O X3 AND SPEAKS SOME FRENCH. PRIMARY LANGUAGE OCCITAN. NO COMPLAINT OF PAIN OR NAUSEA. ON 2L NC WITH NO RESPIRATORY DISTRESS PRESENT. NO EDEMA PRESENT. PATIENT IS AMBULATORY WITH WALKER ASSIST. SKIN IS INTACT. HL PRESENT ON R AC 20G. SAFETY MEASURES IN PLACE. SIDE RAILS RAISED. BED LOWERED. CALL LIGHT WITHIN REACH. WILL CONTINUE TO MONITOR.
[2021-03-24 08:27] LABS: CARBON DIOXIDE 24 mmol/L (21-32); CHLORIDE 108 mmol/L (98-107); GLUCOSE 122 mg/dL (74-106); POTASSIUM 4.3 mmol/L (3.5-5.1); SODIUM SERUM 143 mmol/L (136-145)
[2021-03-24 08:28] LABS: CALCIUM, SERUM 9.3 mg/dL (8.5-10.1); CREATININE 1.5 mg/dL (0.6-1.3); MAGNESIUM 2.4 mg/dL (1.8-2.4); PHOSPHORUS 3.2 mg/dL (2.5-4.9); UREA NITROGEN, BLOOD 31 mg/dL (7-18)
[2021-03-24 08:38] LABS: CHOLESTEROL 113 mg/dL (<200); CREATINE KINASE, TOTAL 54 U/L (26-192); HDL CHOLESTEROL 64 mg/dL (40-60); LDL 43 mg/dL (0-99); TRIGLYCERIDES 59 mg/dL (30-150)
[2021-03-24] MEDS: PANTOPRAZOLE 40 MG TABLET.DR PO SCH (09:19)
[2021-03-24] MEDS: SPIRONOLACTONE 25 MG TABLET PO SCH (09:19)
[2021-03-24] MEDS: LOSARTAN POTASSIUM 50 MG TABLET PO SCH ×2 (09:20→16:44)
[2021-03-24] MEDS: MAGNESIUM OXIDE 400 MG TABLET PO SCH (09:20)
[2021-03-24] MEDS: FUROSEMIDE 40 MG TABLET PO SCH (09:20)
[2021-03-24] MEDS: SOD FERRIC GLUC 125 MG in IV NS 0.9% 100 ML IV SCH (14:20)
[2021-03-24 16:00] VITALS: BP 158/94
[2021-03-24] MEDS ORDERED: MORPHINE SULFATE INJ 2 MG/ML DISP.SYRIN IV PRN (18:00)
--- NOTE | 2021-03-24 18:57 | NUR ---
RN CLOSING NOTE PATIENT AWAKE IN BED RESTING. A/O X3 AND SPEAKS SOME NIGERIEN. PRIMARY LANGUAGE PASHTO. PAIN PRESENT ON R FOOT. PAIN MEDS GIVEN PER PROTOCOL. ON 2L NC WITH NO RESPIRATORY DISTRESS PRESENT. NO EDEMA PRESENT. PATIENT IS AMBULATORY WITH WALKER ASSIST. SKIN IS INTACT. HL PRESENT ON R AC 20G. ROUTINE MEDS GIVEN. SAFETY MEASURES IN PLACE. SIDE RAILS RAISED. BED LOWERED. CALL LIGHT WITHIN REACH. REPORT TO BE GIVEN TO NIGHT NURSE FOR RICKIE
--- NOTE | 2021-03-24 19:15 | NUR ---
MS RN NOTES RECEIVED LYING COMFORTABLY ON BED,BREATHING REGULAR,NOT IN ANY FORM OF DISTRESS,O2 IN USED AT 2L/NC TO KEEP O2 SAT ABOVE 90%.SALINE LOCK RIGHT AC INTACT AND PATENT.AMBULATE WITH WALKER,WITH STANDBY ASSIST.FALL RISK,BED ON LOWEST POSITION AND LOCKED.CALL LIGHT IN REACH,NEEDS ANTICIPATED.
[2021-03-24 20:00] VITALS: BP_SYST 154; BP_DIAS 74; BP_DIAS 78
--- NOTE | 2021-03-24 23:26 | NUR ---
MS RN NOTES C/O RIGHT KNEE PAIN,NORCO 5/325MG,1 TAB PO GIVEN WITH SIPS OF WATER
[2021-03-25 06:19] LABS: BASOPHILS # (AUTO) 0.1 /CMM (0.0-0.2); BASOPHILS % (AUTO) 0.7 % (0.0-2.0); EOSINOPHILS % (AUTO) 2.6 % (0.0-6.0); HEMATOCRIT 26 % (33-45); HEMOGLOBIN 8.1 g/dL (11.5-14.8); LYMPHOCYTES % (AUTO) 19.9 % (20.0-44.0); MEAN CORPUSCULAR HGB CONC 31 g/dl (31.0-36.0); MEAN CORPUSCULAR VOLUME 74 fL (82-100); MONOCYTES # (AUTO) 0.7 /CMM (0.1-1.30); MONOCYTES % (AUTO) 6.8 % (2.0-12.0); NEUTROPHILS # (AUTO) 7.1 /CMM (1.8-8.9); PLATELET COUNT (AUTO) 356 /CMM (150-450); RED BLOOD CELL COUNT(AUTO) 3.48 MIL/uL (4.0-5.2); WHITE BLOOD COUNT (AUTO) 10.2 K/uL (4.3-11.0)
[2021-03-25 06:30] LABS: ALBUMIN 3.6 g/dL (3.4-5.0); BILIRUBIN,TOTAL 0.4 mg/dL (0.2-1.0); CALCIUM, SERUM 9.7 mg/dL (8.5-10.1); CREATININE 1.3 mg/dL (0.6-1.3); MAGNESIUM 2.1 mg/dL (1.8-2.4); PHOSPHORUS 2.7 mg/dL (2.5-4.9); POTASSIUM 4.1 mmol/L (3.5-5.1); TOTAL PROTEIN, SERUM 7.2 g/dL (6.4-8.2)
--- NOTE | 2021-03-25 06:52 | NUR ---
MS RN NOTES RESTING COMFORTABLY ON BED,SLEPT WELL,NO EPISODE OF SOB NOTED.IN NO ACUTE DISTRESS.
--- NOTE | 2021-03-25 08:00 | NUR ---
MS RN OPENING NOTE RECEIVED PATIENT LYING IN BED, AWAKE. A/O X3. GUAMANIAN SPEAKING/UNDERSTANDS AND SPEAKS SOME CROATIAN. NO PAIN NOTED AT THIS TIME. ON 2LPM OXYGEN VIA NASAL CANNULA - TOLERATING WELL. NO SIGNS OF SOB OR DISTRESS NOTED. AMBULATORY WITH WALKER. IV ACCESS TO RIGHT AC #20 - INTACT, PATENT AND SALINE LOCKED. SAFETY MEASURES IMPLEMENTED. CALL LIGHT WITHIN REACH. WILL CONTINUE TO MONITOR.
[2021-03-25 08:07] LABS: PTH, INTACT 61 pg/mL (15-65)
[2021-03-25] MEDS: MAGNESIUM OXIDE 400 MG TABLET PO SCH (09:01)
[2021-03-25] MEDS: LOSARTAN POTASSIUM 50 MG TABLET PO SCH ×2 (09:01→16:14)
[2021-03-25] MEDS: FUROSEMIDE 40 MG TABLET PO SCH (09:01)
[2021-03-25] MEDS: SPIRONOLACTONE 25 MG TABLET PO SCH (09:01)
[2021-03-25] MEDS: PANTOPRAZOLE 40 MG TABLET.DR PO SCH (09:01)
[2021-03-25 09:20] VITALS: BP 116/70
[2021-03-25] MEDS: FUROSEMIDE 100 MG/10 ML VIAL IV SCH ×3 (12:29→20:36)
[2021-03-25] MEDS: SOD FERRIC GLUC 125 MG in IV NS 0.9% 100 ML IV SCH (13:53)
[2021-03-25 16:15] VITALS: BP 157/66
--- NOTE | 2021-03-25 18:32 | NUR ---
MS RN CLOSING NOTE PATIENT CURRENTLY LYING IN BED, RESTING. A/O X3. SCOTTISH SPEAKING/UNDERSTANDS AND SPEAKS SOME SWEDISH. NO PAIN NOTED AT THIS TIME. ON 2LPM OXYGEN VIA NASAL CANNULA - TOLERATING WELL. NO SIGNS OF SOB OR DISTRESS NOTED. AMBULATORY WITH WALKER, ABLE TO USE BATHROOM WITH ASSISTANCE. IV ACCESS TO RIGHT AC #20 - INTACT, PATENT AND SALINE LOCKED. PATIENT TO DC IN THE MORNING. SON IS AWARE. SAFETY MEASURES IMPLEMENTED. CALL LIGHT WITHIN REACH. WILL ENDORSE TO INTERPRETATIVE DANCER NURSE FOR RICKIE.
[2021-03-25 20:00] VITALS: BP_SYST 139; BP_DIAS 59; BP_DIAS 89
--- NOTE | 2021-03-25 20:00 | NUR ---
RN OPENING NOTES Patient is A&Ox3. Cooperative and pleasant. Denies pain or discomfort. Denies SOB, dizziness, lightheadedness. Only complaint is that she has to urinate so often. Educated patient that it is from the Lasix a medication that is removing excess fluid from the body. Pt verbalizes understanding.
[2021-03-25] MEDS: HYDROCODONE/APAP 5/325MG TABLET PO PRN (23:30)
--- NOTE | 2021-03-25 23:30 | NUR ---
MS RN NOTES PAIN MANAGEMENT C/O PAIN ON THE RIGHT FOOT,NORCO 5/325MG,1 TAB GIVEN ORDERED.
[2021-03-26 05:50] LABS: BASOPHILS # (AUTO) 0.1 /CMM (0.0-0.2); BASOPHILS % (AUTO) 1.5 % (0.0-2.0); EOSINOPHILS % (AUTO) 3.7 % (0.0-6.0); HEMATOCRIT 25 % (33-45); HEMOGLOBIN 7.8 g/dL (11.5-14.8); LYMPHOCYTES # (AUTO) 0.8 /CMM (0.8-4.8); LYMPHOCYTES % (AUTO) 12.9 % (20.0-44.0); MEAN CORPUSCULAR HGB CONC 32 g/dl (31.0-36.0); MEAN CORPUSCULAR VOLUME 73 fL (82-100); MONOCYTES # (AUTO) 0.6 /CMM (0.1-1.30); MONOCYTES % (AUTO) 9.4 % (2.0-12.0); NEUTROPHILS # (AUTO) 4.6 /CMM (1.8-8.9); NEUTROPHILS % (AUTO) 72.5 % (43.0-81.0); PLATELET COUNT (AUTO) 290 /CMM (150-450); RED BLOOD CELL COUNT(AUTO) 3.36 MIL/uL (4.0-5.2); WHITE BLOOD COUNT (AUTO) 6.4 K/uL (4.3-11.0)
--- NOTE | 2021-03-26 06:14 | NUR ---
MS RN CLOSING NOTES Patient is A&Ox3, cooperative and pleasant. Up several times during the night to urinate r/t Lasix use. Output 1125cc, intake only 100cc. Edema in legs decreased. VS stable, including B/P. Patient denies SOB, dizziness, lightheadedness. Always remembers to use call light when getting up. Is appreciative of the help from staff.
[2021-03-26 07:23] LABS: ALANINE AMINOTRANSFERASE 14 U/L (12-78); ALBUMIN 3.3 g/dL (3.4-5.0); ALKALINE PHOSPHATASE 127 U/L (46-116); ASPARTATE AMINOTRANSFERASE 18 U/L (15-37); BILIRUBIN,TOTAL 0.5 mg/dL (0.2-1.0); CALCIUM, SERUM 9.9 mg/dL (8.5-10.1); CARBON DIOXIDE 31 mmol/L (21-32); CHLORIDE 103 mmol/L (98-107); CREATININE 1.4 mg/dL (0.6-1.3); GLUCOSE 98 mg/dL (74-106); PHOSPHORUS 2.7 mg/dL (2.5-4.9); POTASSIUM 3.4 mmol/L (3.5-5.1); SODIUM SERUM 142 mmol/L (136-145); TOTAL PROTEIN, SERUM 6.6 g/dL (6.4-8.2); UREA NITROGEN, BLOOD 18 mg/dL (7-18)
--- NOTE | 2021-03-26 07:39 | NUR ---
MS RN OPENING NOTE RECEIVED PATIENT LYING IN BED, AWAKE. A/O X3. TOWEL STRETCHER AT BEDSIDE GETTING VITAL SIGNS. INDIAN SPEAKING/UNDERSTANDS AND SPEAKS SOME SPANISH. NO PAIN NOTED AT THIS TIME. ON 2LPM OXYGEN VIA NASAL CANNULA - TOLERATING WELL. NO SIGNS OF SOB OR DISTRESS NOTED. AMBULATORY WITH WALKER. IV ACCESS TO RIGHT AC #20 - INTACT, PATENT AND SALINE LOCKED. SAFETY MEASURES IMPLEMENTED. CALL LIGHT WITHIN REACH. WILL CONTINUE TO MONITOR.
[2021-03-26] MEDS: SPIRONOLACTONE 25 MG TABLET PO SCH (08:22)
[2021-03-26] MEDS: LOSARTAN POTASSIUM 50 MG TABLET PO SCH (08:22)
[2021-03-26] MEDS: PANTOPRAZOLE 40 MG TABLET.DR PO SCH (08:22)
[2021-03-26] MEDS: MAGNESIUM OXIDE 400 MG TABLET PO SCH (08:22)
[2021-03-26 08:29] VITALS: BP 148/79
[2021-03-26] MEDS ORDERED: FUROSEMIDE 100 MG/10 ML VIAL IV SCH (09:00)
[2021-03-26] MEDS ORDERED: POTASSIUM CHLORIDE 20 MEQ TAB.PRT.SR PO SCH (09:00)
[2021-03-26] MEDS: POTASSIUM CHLORIDE 20 MEQ TAB.PRT.SR PO SCH ×3 (10:17→12:17)
[2021-03-26] MEDS ORDERED: FERR325T23 PO (11:54)
--- NOTE | 2021-03-26 13:34 | NUR ---
MS EQUALIZER OPERATOR NOTE PATIENT DISCHARGED VIA PRIVATE CAR @ 1330. PATIENT STABLE, A/O X4. NO PAIN NOTED. NO DISTRESS NOTED. BELARUSIAN SPEAKING/UNDERSTANDS AND SPEAKS SOME SOUTH AFRICAN. WAS ON 2L OXYGEN VIA NASAL CANNULA - ABLE TO TOLERATE ROOM AIR. NO SOB NOTED. AMBULATORY WITH WALKER. ALL SCHEDULED MEDICATIONS GIVEN. EXITCARE AND EDUCATION GONE OVER WITH AND GIVEN TO PATIENT. PATIENT VERBALIZED UNDERSTANDING. IV REMOVED, WRISTBAND REMOVED. PATIENT ACCOMPANIED TO LOBBY BY MYSELF VIA WHEELCHAIR.
[2021-03-27 11:07] LABS: *SPE A/G RATIO 1.1 (0.7-1.7); *SPE ALBUMIN 3.5 g/dL (2.9-4.4); *SPE ALPHA-1-GLOBULIN 0.3 g/dL (0.0-0.4); *SPE ALPHA-2-GLOBULIN 0.8 g/dL (0.4-1.0); *SPE GLOBULIN, TOTAL 3.2 g/dL (2.2-3.9); *SPE M-SPIKE Not Observed g/dL (Not Observed); *SPEGAMMA GLOBULIN 1.1 g/dL (0.4-1.8)
== END 2021-03-26 13:30 | disposition home or self-care (01) | DRG 291 ==
LOC: ER 03:38 → MED 05:47
PROVIDERS: ADMIT Nurse Practitioner Acute Care; ATTEND Nurse Practitioner Acute Care
PROC: 30233N1 Transfusion of Nonautologous Red Blood Cells into Peripheral Vein, Percutaneous Approach (ICD-10-PCS; principal; 2021-03-23)
DX: I13.0 Hypertensive heart and chronic kidney disease with heart failure and stage 1 through stage 4 chronic kidney disease, or unspecified chronic kidney disease (principal); I50.33 Acute on chronic diastolic (congestive) heart failure; N17.0 Acute kidney failure with tubular necrosis; D68.59 Other primary thrombophilia; N18.4 Chronic kidney disease, stage 4 (severe); D62 Acute posthemorrhagic anemia; J90 Pleural effusion, not elsewhere classified; K29.70 Gastritis, unspecified, without bleeding; M10.9 Gout, unspecified; I48.91 Unspecified atrial fibrillation; E78.5 Hyperlipidemia, unspecified; E86.1 Hypovolemia; Z79.899 Other long term (current) drug therapy; F03.90 Unspecified dementia, unspecified severity, without behavioral disturbance, psychotic disturbance, mood disturbance, and anxiety; I25.10 Atherosclerotic heart disease of native coronary artery without angina pectoris; K57.30 Diverticulosis of large intestine without perforation or abscess without bleeding; T44.5X5A Adverse effect of predominantly beta-adrenoreceptor agonists, initial encounter; Y92.10 Unspecified residential institution as the place of occurrence of the external cause; Z86.73 Personal history of transient ischemic attack (TIA), and cerebral infarction without residual deficits
CPT/HCPCS: 36415; 71045-TC; 76770-TC; 80048-TC; 80053-TC; 80061-TC; 80076-TC; 82272-TC; 82378; 82550-TC; 82728-TC; 83540-TC; 83735-TC; 83880; 83970; 84100-TC; 84155; 84165; 84484-TC; 85025-TC; 85027-TC; 85730-TC; 86850-TC; 87081-TC; 93307-TC; 93926-TC; 93971-TC; 94799-TC; C9113; C9803; G0378; J1940; J2270; J2916; J7030; J7050; P9016

== ENCOUNTER 2021-04-28 23:21 | Emergency (ER) | payer MEDICARE, OTHER ==
[~2021-04-28] VITALS: Ht 154.9 cm; Wt 56.2 kg
[~2021-04-28 23:21] MED LIST changes: -ASPI-1420 PO; -BUME1TAB8 PO; -CARV3.122 PO; +ESOM40CA PO; +FERR325T23 PO; +FURO-144 PO; +MAGN400T8 PO; -MEMA21CA2 PO
--- NOTE | 2021-04-28 23:28 | NUR ---
PT AAOX4. BIBSON C/P LEFT FOOT PAIN, DESCRIBES "PINS/NEEDLES" X1 MO, PAINFUL WHEN WALKING. PT PLACED IN BED 10 ON MONITOR AND PULSE OX. VSS.
[2021-04-29] MEDS ORDERED: KETOROLAC TROMETHAMINE INJ 30 MG/ML VIAL IM ONE
[2021-04-29] MEDS ORDERED: KETOROLAC TROMETHAMINE 15 MG/ML VIAL ONE (00:07)
[2021-04-29] MEDS ORDERED: GABA-532 PO (00:50)
[2021-04-29] MEDS ORDERED: MORPHINE SULFATE INJ 2 MG/ML DISP.SYRIN IM ONE (01:00)
[2021-04-29] MEDS ORDERED: MORPHINE SULFATE INJ 2 MG/ML DISP.SYRIN ONE (01:01)
[2021-04-29 01:21] VITALS: BP 132/76
--- NOTE | 2021-04-29 01:21 | NUR ---
Patient discharged to home in stable condition. Written and verbal after care instructions given. Patient verbalizes understanding of instruction and RX. Pt ambulated out of ED. VSS.
== END 2021-04-29 01:22 | disposition home or self-care (01) ==
LOC: ER 23:23
DX: E11.40 Type 2 diabetes mellitus with diabetic neuropathy, unspecified (principal); M79.671 Pain in right foot; I10 Essential (primary) hypertension; Z98.890 Other specified postprocedural states; Z79.899 Other long term (current) drug therapy
CPT/HCPCS: 73630; 96372 ×2; 99284; J1885; J2270

== ENCOUNTER 2021-05-13 02:50 | Emergency (ER) | payer MEDICARE, OTHER ==
[~2021-05-13] VITALS: Ht 154.9 cm; Wt 56.2 kg
[~2021-05-13 02:50] MED LIST changes: +GABA-532 PO
--- NOTE | 2021-05-13 02:55 | NUR ---
PATIENT BIB FAMILY, C/O RIGHT FOOT PAIN, Dx WITH DIABETIC NEUROPATHY, NO RELIEF WITH MEDS. PATIENT A/O X 4, RR EVEN AND UNLABORED, NO SOB NOTED.
[2021-05-13 03:16] VITALS: BP 148/61
--- NOTE | 2021-05-13 03:16 | NUR ---
Patient discharged to home in stable condition. Written and verbal after care instructions given. Patient verbalizes understanding of instruction.
== END 2021-05-13 03:17 | disposition home or self-care (01) ==
LOC: ER 02:50
DX: E11.40 Type 2 diabetes mellitus with diabetic neuropathy, unspecified (principal); I10 Essential (primary) hypertension; Z98.890 Other specified postprocedural states; Z79.899 Other long term (current) drug therapy

== ENCOUNTER 2021-05-29 13:52 | Inpatient (IN) | payer MEDICARE, OTHER ==
[~2021-05-29] VITALS: Ht 144.8 cm; Wt 56.7 kg
[2021-05-29] MEDS ORDERED: GABA-532 PO (14:10)
[2021-05-29] MEDS ORDERED: FERR325T23 PO (14:10)
[2021-05-29] MEDS ORDERED: MELO-105 PO (14:10)
--- NOTE | 2021-05-29 14:10 | NUR ---
BIB SON. SEND BY PMD FOR CRITICAL LOW Hgb LEVEL. PATIENT DENIES ANY COMPLAINTS, ASSISTED TO ER BED 8 ACCOMPANIED BY SON. PATIENT A/OX4, NO DISTRESS NOTED. CHANGED INTO A GOWN, ATTACHED TO THE M[place]ICAN FOOD MAKER HAND.
--- NOTE | 2021-05-29 14:25 | NUR ---
iv line established, blood drawn and sent to lab.
[2021-05-29 14:47] LABS: BASOPHILS % (AUTO) 0.9 % (0.0-2.0); EOSINOPHILS % (AUTO) 1.2 % (0.0-6.0); LYMPHOCYTES # (AUTO) 0.6 K/uL (0.8-4.8); LYMPHOCYTES % (AUTO) 11.1 % (20.0-44.0); MEAN CORPUSCULAR HGB CONC 31 g/dl (31.0-36.0); MEAN CORPUSCULAR VOLUME 68 fL (82-100); MONOCYTES # (AUTO) 0.5 K/uL (0.1-1.30); MONOCYTES % (AUTO) 8.8 % (2.0-12.0); PLATELET COUNT (AUTO) 296 K/uL (150-450); RED BLOOD CELL COUNT(AUTO) 2.39 MIL/uL (4.0-5.2); WHITE BLOOD COUNT (AUTO) 5.2 K/uL (4.3-11.0)
[2021-05-29 14:53] LABS: HEMATOCRIT 16 % (33-45); HEMOGLOBIN 5.1 g/dL (11.5-14.8)
[2021-05-29 14:58] LABS: ALANINE AMINOTRANSFERASE 14 U/L (12-78); ALBUMIN 3.4 g/dL (3.4-5.0); ALKALINE PHOSPHATASE 116 U/L (46-116); ASPARTATE AMINOTRANSFERASE 13 U/L (15-37); BILIRUBIN,DIRECT 0.1 mg/dL (0.0-0.2); BILIRUBIN,TOTAL 0.3 mg/dL (0.2-1.0); CALCIUM, SERUM 9.1 mg/dL (8.5-10.1); CARBON DIOXIDE 31 mmol/L (21-32); CHLORIDE 103 mmol/L (98-107); CREATININE 2.5 mg/dL (0.6-1.3); GLUCOSE 133 mg/dL (74-106); LIPASE 400 U/L (73-393); POTASSIUM 4.2 mmol/L (3.5-5.1); SODIUM SERUM 140 mmol/L (136-145); TOTAL PROTEIN, SERUM 7.2 g/dL (6.4-8.2); UREA NITROGEN, BLOOD 52 mg/dL (7-18)
--- NOTE | 2021-05-29 15:06 | NUR ---
MOVE SHEET SUBMITTED
--- NOTE | 2021-05-29 15:08 | NUR ---
CALLED NURSING SUP FOR A BED
--- NOTE | 2021-05-29 15:14 | NUR ---
PATIENT A/OX4, RESTING, VSS. NO DISTRESS NOTED. NEEDS ATTENDED.
--- NOTE | 2021-05-29 15:14 | NUR ---
COVID SWAB SENT.
--- NOTE | 2021-05-29 15:43 | NUR ---
PAGED EPIC STAINED GLASS GLAZIER
[2021-05-29] MEDS ORDERED: *INSULIN REGULAR(HUMULIN R)HUM 100 UNIT/ML VIAL SQ PRN (16:00)
[2021-05-29] MEDS ORDERED: DEXTROSE 50%-WATER 50 ML DISP.SYRIN IV PRN (16:00)
[2021-05-29] MEDS ORDERED: INSULIN REGULAR, HUMAN 100 UNIT/ML 3 ML VIAL SQ PRN (16:00)
[2021-05-29] MEDS ORDERED: Medication Not On Formulary EA (Esomeprazole Mag Trihydrate (Nexium) 40 MG) PO SCH (16:00)
--- NOTE | 2021-05-29 16:05 | NUR ---
PRBC 1 UNIT INITIATED. PATIENT A/OX4, VSS. WILL MONITOR FOR ADVERSE REACTION.
--- NOTE | 2021-05-29 16:13 | NUR ---
NURSING SUP WILL CALLBACK WITH A BED
[2021-05-29 16:18] LABS: IRON, SERUM 9 ug/dl (50-175); TOTAL IRON BINDING CAPACITY 502 ug/dl (250-450)
--- NOTE | 2021-05-29 16:19 | NUR ---
BED 326-2. NURSE FAITH FOR REPORT
--- NOTE | 2021-05-29 16:28 | NUR ---
REPORT GIVEN TO FAITH OLEARY FOR RICKIE.
[2021-05-29 16:31] LABS: FERRITIN 6 ng/mL (8-388)
[2021-05-29 16:42] LABS: EOSINOPHILS % (MANUAL) 1 % (0-4); LYMPHOCYTES % (MANUAL) 10 % (16-48); MONOCYTES % (MANUAL) 10 % (0-11.0); NEUTROPHILS % (MANUAL) 79 (42-76)
[2021-05-29] MEDS ORDERED: PANTOPRAZOLE 40 MG VIAL IV SCH (17:00)
--- NOTE | 2021-05-29 17:22 | NUR ---
PATIENT TRANSFERRED TO ROOM 326-1 VIA ACLS PROTOCOL. PATIENT 1 UNIT OF PRBC STILL INFUSING AND TOLERATING WELL. NO S/SX OF FLUID OVERLOAD. PATIENT ENDORSED TO FAITH OLEARY.
[2021-05-29] MEDS ORDERED: BLOOD SUGAR DIAGNOSTIC 1 EACH STRIP VI SCH (17:30)
--- NOTE | 2021-05-29 18:10 | NUR ---
MS/RN RECEIVING NOTES RECEIVED PATIENT FROM THE ER. PATIENT IS ALERT AND ORIENTED X3, ABLE TO MAKE NEEDS KNOWN. SKIN IS INTACT. STABLE ON ROOM AIR. NO SOB OR DISCOMFORTS NOTED. PATIENT HAS A RUNNING BLOOD TRANSFUSION AT 150CC/HR. ON BEDREST. CONTINENT AND USES URINAL FOR NOW. ORIENTED PATIENT TO THE UNIT AND THE SAFETY USE OF EQUIPMENTS. ALSO EDUCATED PATIENT OF DIAGNOSIS, PATIENT VERBALIZED UNDERSTANDING. WILL CONTINUE TO MONITOR.
[2021-05-29] MEDS: GABAPENTIN 100 MG CAPSULE PO SCH (18:24)
[2021-05-29] MEDS: FERROUS SULFATE (325 MG) 325 MG/TAB TABLET PO SCH (18:24)
[2021-05-29] MEDS: LOSARTAN POTASSIUM 50 MG TABLET PO SCH (18:24)
[2021-05-29 19:00] VITALS: BP 136/62
--- NOTE | 2021-05-29 19:04 | NUR ---
MS/RN NOTES 2ND BAG OF PACKED RBC STARTED. V/S BP-136/62 HR-64, RR-18, T-98.3. WILL ENDORSE TO THE NEXT SHIFT FOR CONTINUITY OF CARE AND MONITORING.
--- NOTE | 2021-05-29 19:15 | NUR ---
MS/RN CLOSING NOTES PATIENT IS IN BED, ALERT AND ORIENTEDX3, [place] SPEAKING BUT CAN UNDERSTAND [place]LE [place]. ABLE TO MAKE NEEDS KNOWN. 2ND BAG OF PACKED RBC STARTED AT 19:05. NO ADVERSE REACTION NOTED. SAFETY PRECAUTIONS IN PLACE: BED LOCKED ON LOWEST POSITION, SIDE RAILS UPX2, CALL LIGHT WITHIN REACH. ENDORSED PATIENT TO THE NEXT SHIFT FOR CONTINUITY OF CARE.
[2021-05-29 19:19] VITALS: BP 136/70
--- NOTE | 2021-05-29 20:00 | NUR ---
COMBER OPERATOR OPENING NOTE RECEIVED PT AWAKE IN BED. A/O X3. PT IS BELARUSIAN-SPEAKING, BUT CAN UNDERSTAND MINIMAL WOLOF. PT IS STABLE ON ROOM AIR. NO SOB OR S/S OF RESPIRATORY DISTRESS NOTED. PT IS UNDERGOING BLOOD TRANSFUSION AT 150CC/HR AT THIS TIME. NO TRANSFUSION REACTIONS NOTED. PT IS ON BEDREST. PT ON EXTERNAL PROJECT ESTIMATOR READING CONTROLLED AFIB AT 52. IV ACCESS IN RAC #20, INTACT AND PATENT. SAFETY MEASURES MAINTAINED. BED IN LOWEST LOCKED POSITION, HOB ELEVATED, SIDE RAILS UP X2. CALL LIGHT AND TABLE WITHIN REACH. WILL CONTINUE WITH PLAN OF CARE.
[2021-05-29 20:04] VITALS: BP 145/68
[2021-05-29 22:25] VITALS: BP 132/67
--- NOTE | 2021-05-29 22:25 | NUR ---
BLOOD TRANSFUSION ENDED AT THIS TIME. VITAL SIGNS BP 132/67, HR 61, RR 20, T 98.5, SPO2 98%. NO TRANSFUSION REACTIONS NOTED. WILL CONTINUE TO MONITOR PT.
[2021-05-29] MEDS ORDERED: FUROSEMIDE 40 MG/4 ML VIAL IV ONE (23:00)
[2021-05-29 23:02] LABS: HEMOGLOBIN 7.1 g/dL (11.5-14.8)
[2021-05-30 00:27] VITALS: BP 134/75
[2021-05-30 04:12] VITALS: BP 144/54
--- NOTE | 2021-05-30 06:12 | NUR ---
UPHOLSTERER APPRENTICE CLOSING NOTE PT IS IN BED WITH EYES CLOSED, EASILY AROUSABLE TO STIMULATION. A/O X3. PT IS MONGOLIAN-SPEAKING, BUT CAN UNDERSTAND MINIMAL STATELESS. PT IS STABLE ON ROOM AIR. NO SOB OR S/S OF RESPIRATORY DISTRESS NOTED. PT ON EXTERNAL AUTO BODY REPAIRER READING CONTROLLED AFIB AT 52. IV ACCESS IN RAC #20, INTACT AND PATENT. ALL NEEDS HAVE BEEN MET. SAFETY MEASURES MAINTAINED AT ALL TIMES. BED IN LOWEST LOCKED POSITION, HOB ELEVATED, SIDE RAILS UP X2. CALL LIGHT AND TABLE WITHIN REACH. WILL ENDORSE TO ONCOMING NURSE FOR RICKIE.
[2021-05-30 06:31] LABS: HEMOGLOBIN 7.4 g/dL (11.5-14.8)
[2021-05-30 08:00] VITALS: BP 136/60
[2021-05-30] MEDS ORDERED: PANT40TA49 PO (08:27)
[2021-05-30] MEDS ORDERED: FERR325T28 PO (08:27)
[2021-05-30] MEDS ORDERED: POTASSIUM CHLORIDE 10 MEQ TABLET.SA PO SCH (09:00)
[2021-05-30] MEDS ORDERED: FUROSEMIDE 40 MG TABLET PO SCH (09:00)
[2021-05-30] MEDS ORDERED: MAGNESIUM OXIDE 400 MG TABLET PO SCH (09:00)
[2021-05-30] MEDS ORDERED: SPIRONOLACTONE 25 MG TABLET PO SCH (09:00)
[2021-05-30] MEDS: FERROUS SULFATE (325 MG) 325 MG/TAB TABLET PO SCH (09:29)
[2021-05-30] MEDS: GABAPENTIN 100 MG CAPSULE PO SCH ×4 (09:29→17:50)
[2021-05-30] MEDS: LOSARTAN POTASSIUM 50 MG TABLET PO SCH ×2 (09:29→17:49)
[2021-05-30] MEDS: PANTOPRAZOLE 40 MG TABLET.DR PO SCH ×2 (09:30→17:50)
[2021-05-30] MEDS ORDERED: SOD FERRIC GLUC 125 MG in IV NS 0.9% 100 ML IV SCH (14:00)
[2021-05-30 14:42] LABS: HEMOGLOBIN 7.4 g/dL (11.5-14.8)
[2021-05-30 16:00] VITALS: BP 123/57
--- NOTE | 2021-05-30 17:00 | NUR ---
DR. CHICAS IN AND DC ORDERS GIVEN.
[2021-05-30 17:49] VITALS: BP 123/57
--- NOTE | 2021-05-30 17:57 | NUR ---
INTRAVENOUS IRON COMPLETE,MAKING READY FOR DISCHARGE.IV REMOVED.RN SPOKE WITH SON.
--- NOTE | 2021-05-30 18:20 | NUR ---
SON HERE AND GIVEN ALL DC INSTRUCTIONS ON PT.HEP LOCK OUT.ALL PAPERS SIGNED.
--- NOTE | 2021-05-30 18:22 | NUR ---
TAKEN TO LOBBY VIA W/C ACCOMPANIED BY SON AND WORKERS' COMPENSATION CLAIMS EXAMINER FOR DC.
== END 2021-05-30 18:29 | disposition home or self-care (01) | DRG 811 ==
LOC: ER 14:10 → TELE 16:51 → MED 05-30 10:08
PROVIDERS: ADMIT Internal Medicine; ATTEND Internal Medicine
PROC: 30233N1 Transfusion of Nonautologous Red Blood Cells into Peripheral Vein, Percutaneous Approach (ICD-10-PCS; principal; 2021-05-29)
DX: D50.9 Iron deficiency anemia, unspecified (principal); N17.0 Acute kidney failure with tubular necrosis; I13.0 Hypertensive heart and chronic kidney disease with heart failure and stage 1 through stage 4 chronic kidney disease, or unspecified chronic kidney disease; I48.91 Unspecified atrial fibrillation; N18.9 Chronic kidney disease, unspecified; Z20.822 Contact with and (suspected) exposure to COVID-19; I25.10 Atherosclerotic heart disease of native coronary artery without angina pectoris; Z86.73 Personal history of transient ischemic attack (TIA), and cerebral infarction without residual deficits; I50.9 Heart failure, unspecified; E78.5 Hyperlipidemia, unspecified; I73.9 Peripheral vascular disease, unspecified; Z79.899 Other long term (current) drug therapy
CPT/HCPCS: 36415; 71045-TC; 80048-TC; 80076-TC; 82728-TC; 82962-TC; 83540-TC; 83690-TC; 84484-TC; 85025-TC; 85027-TC; 85730-TC; 86850-TC; 87081-TC; C9113; C9803; G0378; J1815; J1940; J2916; J7030; J7050; P9016

== ENCOUNTER 2023-09-20 10:11 | Inpatient (IN) | payer MEDICARE, OTHER ==
[2023-09-20] VITALS (12 sets, daily range): BP systolic 103–151; BP diastolic 49–64; TEMP 98.6; O2SAT 93–98
[~2023-09-20] VITALS: Ht 157.5 cm; Wt 59.0 kg
[~2023-09-20 10:11] MED LIST changes: -ESOM40CA PO; -FERR325T23 PO; +FERR325T28 PO; +PANT40TA49 PO
[2023-09-20 11:33] LABS: BASOPHILS # (AUTO) 0.1 K/uL (0.0-0.2); BASOPHILS % (AUTO) 0.8 % (0.0-2.0); EOSINOPHILS % (AUTO) 0.5 % (0.0-6.0); LYMPHOCYTES # (AUTO) 0.5 K/uL (0.8-4.8); LYMPHOCYTES % (AUTO) 6.3 % (20.0-44.0); MEAN CORPUSCULAR HEMOGLOBIN 29 PG (26.0-33.0); MEAN CORPUSCULAR HGB CONC 31 g/dl (31.0-36.0); MEAN CORPUSCULAR VOLUME 95 fL (82-100); MONOCYTES # (AUTO) 0.4 K/uL (0.1-1.30); MONOCYTES % (AUTO) 5.1 % (2.0-12.0); NEUTROPHILS # (AUTO) 7.2 K/uL (1.8-8.9); NEUTROPHILS % (AUTO) 87.3 % (43.0-81.0); PLATELET COUNT (AUTO) 362 K/uL (150-450); RED CELL DISTRIBUTION WIDTH 20.4 % (11.5-15.0); WHITE BLOOD COUNT (AUTO) 8.3 K/uL (4.3-11.0)
[2023-09-20 11:42] LABS: CALCIUM, SERUM 9.3 mg/dL (8.5-10.1); CARBON DIOXIDE 24 mmol/L (21-32); CHLORIDE 101 mmol/L (98-107); CREATININE 1.6 mg/dL (0.6-1.3); GLUCOSE 131 mg/dL (74-106); POTASSIUM 3.4 mmol/L (3.5-5.1); SODIUM SERUM 137 mmol/L (136-145); UREA NITROGEN, BLOOD 51 mg/dL (7-18)
[2023-09-20 11:48] LABS: ALANINE AMINOTRANSFERASE 13 U/L (12-78); ALKALINE PHOSPHATASE 85 U/L (46-116); ASPARTATE AMINOTRANSFERASE 17 U/L (15-37); BILIRUBIN,DIRECT 0.1 mg/dL (0.0-0.2); BILIRUBIN,TOTAL 0.3 mg/dL (0.2-1.0); TOTAL PROTEIN, SERUM 6.5 g/dL (6.4-8.2)
[2023-09-20 11:51] LABS: RED BLOOD CELL COUNT(AUTO) 1.98 MIL/uL (4.0-5.2)
[2023-09-20 11:52] LABS: HEMATOCRIT 19 % (33-45); HEMOGLOBIN 5.8 g/dL (11.5-14.8)
[2023-09-20 12:16] LABS: INR 1.13 (0.91-1.10); PARTIAL THROMBOPLASTIN TIME 24.3 SEC (24.3-34.3); PROTHROMBIN TIME 11.9 SECS (9.2-11.1)
[2023-09-20 12:55] LABS: LYMPHOCYTES % (MANUAL) 5 % (16-48); MONOCYTES % (MANUAL) 4 % (0-11.0); NEUTROPHILS % (MANUAL) 91 (42-76); PLATELET ESTIMATE ADEQUATE
[2023-09-20 12:56] LABS: ANISOCYTOSIS 2+; OVALOCYTES 1+
[2023-09-20] MEDS ORDERED: FUROSEMIDE 20 MG/2 ML VIAL IV ONE (14:30)
[2023-09-20] MEDS ORDERED: FUROSEMIDE 40 MG/4 ML VIAL ONE (14:32)
[2023-09-20 15:51] LABS: OCCULT BLOOD STOOL POSITIVE (NEGATIVE)
[2023-09-20] MEDS ORDERED: MAGNESIUM HYDROXIDE 30 ML UDC PO PRN (18:00)
[2023-09-20] MEDS ORDERED: ONDANSETRON HCL/PF 4 MG/2 ML VIAL IVP PRN (18:00)
[2023-09-20] MEDS ORDERED: MAG HYDROX/AL HYDROX/SIMETH 30 ML UDC PO PRN (18:00)
[2023-09-20] MEDS ORDERED: ZOLPIDEM TARTRATE 5 MG TABLET PO PRN (18:00)
[2023-09-20] MEDS ORDERED: Z GUARD REMEDY 4 OZ OINT TP PRN (18:00)
[2023-09-20] MEDS ORDERED: ACETAMINOPHEN 325 MG TABLET PO PRN (18:00)
[2023-09-20] MEDS: PANTOPRAZOLE 40 MG VIAL IV SCH (21:24)
[2023-09-21] VITALS (46 sets, daily range): BP systolic 109–171; BP diastolic 42–79; TEMP 97.5–98.8; O2SAT 86–99
[2023-09-21 05:49] LABS: BASOPHILS # (AUTO) 0.1 K/uL (0.0-0.2); BASOPHILS % (AUTO) 1.4 % (0.0-2.0); EOSINOPHILS # (AUTO) 0.2 K/uL (0.0-0.7); EOSINOPHILS % (AUTO) 2.7 % (0.0-6.0); HEMATOCRIT 21 % (33-45); LYMPHOCYTES # (AUTO) 0.7 K/uL (0.8-4.8); LYMPHOCYTES % (AUTO) 9.7 % (20.0-44.0); MEAN CORPUSCULAR HEMOGLOBIN 30 PG (26.0-33.0); MEAN CORPUSCULAR HGB CONC 34 g/dl (31.0-36.0); MEAN CORPUSCULAR VOLUME 91 fL (82-100); MONOCYTES # (AUTO) 0.6 K/uL (0.1-1.30); MONOCYTES % (AUTO) 8.5 % (2.0-12.0); NEUTROPHILS # (AUTO) 5.3 K/uL (1.8-8.9); NEUTROPHILS % (AUTO) 77.7 % (43.0-81.0); PLATELET COUNT (AUTO) 280 K/uL (150-450); RED BLOOD CELL COUNT(AUTO) 2.29 MIL/uL (4.0-5.2); RED CELL DISTRIBUTION WIDTH 18.4 % (11.5-15.0); WHITE BLOOD COUNT (AUTO) 6.9 K/uL (4.3-11.0)
[2023-09-21 06:42] LABS: CALCIUM, SERUM 8.9 mg/dL (8.5-10.1); CARBON DIOXIDE 26 mmol/L (21-32); CHLORIDE 106 mmol/L (98-107); CREATININE 1.5 mg/dL (0.6-1.3); GLUCOSE 97 mg/dL (74-106); PHOSPHORUS 3.7 mg/dL (2.5-4.9); POTASSIUM 3.2 mmol/L (3.5-5.1); SODIUM SERUM 141 mmol/L (136-145); UREA NITROGEN, BLOOD 42 mg/dL (7-18)
[2023-09-21 06:45] LABS: CHOLESTEROL 130 mg/dL (<200); HDL CHOLESTEROL 63 mg/dL (40-60); LDL 55 mg/dL (0-99); THYROID STIMULATING HORMONE 4.197 uIU/mL (0.358-3.74); TRIGLYCERIDES 73 mg/dL (30-150)
[2023-09-21 06:49] LABS: IRON, SERUM 22 ug/dl (50-175); TOTAL IRON BINDING CAPACITY 251 ug/dl (250-450)
[2023-09-21] MEDS ORDERED: FUROSEMIDE 40 MG/4 ML VIAL IV SCH (09:00)
[2023-09-21] MEDS ORDERED: ENOXAPARIN SODIUM 40 MG/0.4 ML DISP.SYRIN SQ SCH (09:00)
[2023-09-21] MEDS: PANTOPRAZOLE 40 MG VIAL IV SCH ×2 (10:00→21:09)
[2023-09-21] MEDS: POTASSIUM CHLORIDE 20 MEQ TAB.PRT.SR PO SCH ×3 (10:00→12:42)
[2023-09-21] MEDS: ENOXAPARIN SODIUM 30 MG/0.3 ML DISP.SYRIN SQ SCH (10:02)
[2023-09-21] MEDS ORDERED: ATOR80TA PO (10:06)
[2023-09-21] MEDS ORDERED: BUME0.5T6 PO (10:06)
[2023-09-21] MEDS ORDERED: APIX2.5T PO (10:06)
[2023-09-21] MEDS ORDERED: FERR324T PO (10:06)
[2023-09-21] MEDS ORDERED: POLY17PO4 PO (10:06)
[2023-09-21] MEDS ORDERED: AMLO10TA4 PO (10:06)
[2023-09-21] MEDS ORDERED: BENZ200C53 PO (10:06)
[2023-09-21] MEDS ORDERED: HYDR-4077 PO (10:06)
[2023-09-21] MEDS ORDERED: ASPI-1169 PO (10:06)
[2023-09-21] MEDS ORDERED: LOSA25TA27 PO (10:06)
[2023-09-21] MEDS ORDERED: CARV3.12 PO (10:06)
[2023-09-21] MEDS ORDERED: PANT40TA2 PO (10:06)
[2023-09-21 11:33] LABS: HEMOGLOBIN 7.4 g/dL (11.5-14.8)
[2023-09-21] MEDS: SOD FERRIC GLUC 125 MG in IV NS 0.9% 100 ML IV SCH (13:57)
[2023-09-21] MEDS ORDERED: SOD FERRIC GLUC 125 MG in IV NS 0.9% 100 ML IV SCH (14:00)
[2023-09-21] MEDS ORDERED: ALBUMIN 5% 250 ML IV ONE (16:38)
[2023-09-21] MEDS ORDERED: SIMETHICONE SUSP 40 MG/0.6 ML BOTTLE ONE (16:58)
[2023-09-21] MEDS ORDERED: POTASSIUM CHLORIDE 10 MEQ/50 ML PREMIXED IVPB FOR PERIPHERAL LINE IV ONE (17:00)
[2023-09-21] MEDS: POTASSIUM CL. PREMIX PERIPHER. 50 ML IV SCH ×2 (17:39→18:22)
[2023-09-22] VITALS (44 sets, daily range): BP systolic 103–153; BP diastolic 44–93; TEMP 97.4–99.4; O2SAT 89–100
[2023-09-22 06:17] LABS: ALBUMIN 3.1 g/dL (3.4-5.0); BILIRUBIN,TOTAL 0.6 mg/dL (0.2-1.0); CALCIUM, SERUM 9.5 mg/dL (8.5-10.1); CREATININE 1.3 mg/dL (0.6-1.3); MAGNESIUM 2.2 mg/dL (1.8-2.4); PHOSPHORUS 3.5 mg/dL (2.5-4.9); POTASSIUM 4.5 mmol/L (3.5-5.1); TOTAL PROTEIN, SERUM 6.3 g/dL (6.4-8.2)
[2023-09-22 06:27] LABS: BASOPHILS # (AUTO) 0.1 K/uL (0.0-0.2); BASOPHILS % (AUTO) 0.3 % (0.0-2.0); EOSINOPHILS % (AUTO) 0.1 % (0.0-6.0); HEMATOCRIT 23 % (33-45); HEMOGLOBIN 7.4 g/dL (11.5-14.8); LYMPHOCYTES # (AUTO) 0.7 K/uL (0.8-4.8); LYMPHOCYTES % (AUTO) 3.6 % (20.0-44.0); MEAN CORPUSCULAR HEMOGLOBIN 30 PG (26.0-33.0); MEAN CORPUSCULAR HGB CONC 32 g/dl (31.0-36.0); MEAN CORPUSCULAR VOLUME 94 fL (82-100); MONOCYTES # (AUTO) 0.5 K/uL (0.1-1.30); MONOCYTES % (AUTO) 2.7 % (2.0-12.0); NEUTROPHILS % (AUTO) 93.3 % (43.0-81.0); PLATELET COUNT (AUTO) 304 K/uL (150-450); RED BLOOD CELL COUNT(AUTO) 2.46 MIL/uL (4.0-5.2); RED CELL DISTRIBUTION WIDTH 19.5 % (11.5-15.0); WHITE BLOOD COUNT (AUTO) 19.3 K/uL (4.3-11.0)
[2023-09-22] MEDS: POTASSIUM CHLORIDE 20 MEQ TAB.PRT.SR PO SCH ×2 (09:18→10:00)
[2023-09-22] MEDS: PANTOPRAZOLE 40 MG VIAL IV SCH ×2 (09:18→21:25)
[2023-09-22] MEDS: ENOXAPARIN SODIUM 30 MG/0.3 ML DISP.SYRIN SQ SCH (09:25)
[2023-09-22] MEDS: FUROSEMIDE 40 MG/4 ML VIAL IV SCH ×3 (09:30→20:21)
[2023-09-22 11:10] LABS: ABG BASE EXCESS 0.4 mmol/L; ABG OXYGEN SATURATION 84.5 % (92.0-98.5); ABG PCO2 38.7 mmHg (35.0-45.0); ABG PH 7.424 (7.350-7.450); ABG PO2 49.4 mmHg (75.0-100.0); ABG TOTAL HEMOGLOBIN 8.3 G/dL (12.0-16.0); AaDO2 191.3 mmHg; COHb 0.4 % (0.5-1.5); MetHb 0.3 % (0.0-1.5); O2Hb 83.9 % (94.0-97.0); SITE, ABG Right Radial
[2023-09-22 11:18] LABS: ABG BASE EXCESS 1.2 mmol/L; ABG OXYGEN SATURATION 92.5 % (92.0-98.5); ABG PCO2 38.5 mmHg (35.0-45.0); ABG PH 7.438 (7.350-7.450); ABG TOTAL HEMOGLOBIN 8.3 G/dL (12.0-16.0); AaDO2 536.2 mmHg; COHb 0.4 % (0.5-1.5); MetHb 0.3 % (0.0-1.5); O2Hb 91.9 % (94.0-97.0); SITE, ABG Right Radial
[2023-09-22] MEDS: CEFEPIME 1 GM in IV D5W 50 ML IV SCH ×2 (12:00→23:19)
[2023-09-22] MEDS ORDERED: POLYETHYLENE GLYCOL 3350 17 GM POWD.PACK PO PRN (12:30)
[2023-09-22] MEDS: SOD FERRIC GLUC 125 MG in IV NS 0.9% 100 ML IV SCH (14:00)
[2023-09-22 16:51] LABS: APPEARANCE,URINE CLEAR (CLEAR); BILIRUBIN,URINE NEGATIVE (NEGATIVE); BLOOD, URINE 1+ Ery/uL (NEGATIVE); COLOR,URINE YELLOW (YELLOW); KETONES,URINE NEGATIVE (NEGATIVE); LEUKOCYTE ESTERASE ,URINE TRACE (NEGATIVE); NITRITE, URINE NEGATIVE (NEGATIVE); PH,URINE 5.5 (5.0-8.0); PROTEIN,URINE NEGATIVE (NEGATIVE); UGLUCOSE NEGATIVE (NEGATIVE); UROBILINOGEN,URINE 0.2 EU/dL (0.2)
[2023-09-22 16:59] LABS: ADD URINE CULTURE NO; BACTERIA,URINE RARE /HPF (None Seen); MUCUS,URINE Few /LPF (None Seen)
[2023-09-22] MEDS ORDERED: CARVEDILOL 3.125 MG TABLET PO SCH (17:00)
[2023-09-22 18:59] LABS: HEMOGLOBIN 7.8 g/dL (11.5-14.8)
[2023-09-22] MEDS: ATORVASTATIN 40 MG TABLET PO SCH (21:25)
[2023-09-23] VITALS (48 sets, daily range): BP systolic 101–153; BP diastolic 43–118; TEMP 97.5–99.4; O2SAT 89–100
[2023-09-23 05:15] LABS: ALANINE AMINOTRANSFERASE 12 U/L (12-78); ALBUMIN 2.6 g/dL (3.4-5.0); ALKALINE PHOSPHATASE 67 U/L (46-116); ASPARTATE AMINOTRANSFERASE 13 U/L (15-37); BILIRUBIN,TOTAL 0.6 mg/dL (0.2-1.0); CALCIUM, SERUM 9.5 mg/dL (8.5-10.1); CARBON DIOXIDE 29 mmol/L (21-32); CHLORIDE 109 mmol/L (98-107); CREATININE 1.5 mg/dL (0.6-1.3); GLUCOSE 110 mg/dL (74-106); MAGNESIUM 2.1 mg/dL (1.8-2.4); POTASSIUM 4.3 mmol/L (3.5-5.1); SODIUM SERUM 143 mmol/L (136-145); TOTAL PROTEIN, SERUM 5.6 g/dL (6.4-8.2); UREA NITROGEN, BLOOD 32 mg/dL (7-18)
[2023-09-23 05:17] LABS: BASOPHILS % (AUTO) 0.5 % (0.0-2.0); EOSINOPHILS # (AUTO) 0.2 K/uL (0.0-0.7); EOSINOPHILS % (AUTO) 2.1 % (0.0-6.0); HEMATOCRIT 21 % (33-45); LYMPHOCYTES # (AUTO) 0.6 K/uL (0.8-4.8); LYMPHOCYTES % (AUTO) 6.6 % (20.0-44.0); MEAN CORPUSCULAR HEMOGLOBIN 30 PG (26.0-33.0); MEAN CORPUSCULAR HGB CONC 33 g/dl (31.0-36.0); MEAN CORPUSCULAR VOLUME 93 fL (82-100); MONOCYTES # (AUTO) 0.6 K/uL (0.1-1.30); MONOCYTES % (AUTO) 6.9 % (2.0-12.0); NEUTROPHILS # (AUTO) 7.8 K/uL (1.8-8.9); NEUTROPHILS % (AUTO) 83.9 % (43.0-81.0); PLATELET COUNT (AUTO) 299 K/uL (150-450); RED BLOOD CELL COUNT(AUTO) 2.24 MIL/uL (4.0-5.2); RED CELL DISTRIBUTION WIDTH 19.8 % (11.5-15.0); WHITE BLOOD COUNT (AUTO) 9.3 K/uL (4.3-11.0)
[2023-09-23 05:18] LABS: HEMOGLOBIN 6.8 g/dL (11.5-14.8)
[2023-09-23 07:37] LABS: LYMPHOCYTES % (MANUAL) 7 % (16-48); MONOCYTES % (MANUAL) 6 % (0-11.0); NEUTROPHILS % (MANUAL) 87 (42-76); PLATELET ESTIMATE ADEQUATE
[2023-09-23 07:38] LABS: ANISOCYTOSIS 1+
[2023-09-23] MEDS: AMLODIPINE BESYLATE 10 MG TABLET PO SCH (09:00)
[2023-09-23] MEDS ORDERED: FERROUS SULFATE (325 MG) 325 MG/TAB TABLET PO SCH (09:00)
[2023-09-23] MEDS: FUROSEMIDE 100 MG/10 ML VIAL IV SCH ×3 (09:37→16:46)
[2023-09-23] MEDS: PANTOPRAZOLE 40 MG VIAL IV SCH ×2 (09:37→21:16)
[2023-09-23] MEDS: ASPIRIN 81 MG TAB.CHEW PO SCH (09:37)
[2023-09-23] MEDS: ENOXAPARIN SODIUM 30 MG/0.3 ML DISP.SYRIN SQ SCH (09:39)
[2023-09-23] MEDS: CEFEPIME 1 GM in IV D5W 50 ML IV SCH ×2 (13:03→23:52)
[2023-09-23] MEDS: SOD FERRIC GLUC 125 MG in IV NS 0.9% 100 ML IV SCH (14:33)
[2023-09-23] MEDS: ATORVASTATIN 40 MG TABLET PO SCH (21:17)
[2023-09-24] VITALS (39 sets, daily range): BP systolic 109–153; BP diastolic 39–100; TEMP 98–99.4; O2SAT 94–100
[2023-09-24 04:32] LABS: BASOPHILS % (AUTO) 0.6 % (0.0-2.0); EOSINOPHILS # (AUTO) 0.4 K/uL (0.0-0.7); EOSINOPHILS % (AUTO) 5.6 % (0.0-6.0); HEMATOCRIT 25 % (33-45); HEMOGLOBIN 8.1 g/dL (11.5-14.8); LYMPHOCYTES # (AUTO) 0.4 K/uL (0.8-4.8); LYMPHOCYTES % (AUTO) 6.5 % (20.0-44.0); MEAN CORPUSCULAR HEMOGLOBIN 30 PG (26.0-33.0); MEAN CORPUSCULAR HGB CONC 33 g/dl (31.0-36.0); MEAN CORPUSCULAR VOLUME 92 fL (82-100); MONOCYTES # (AUTO) 0.5 K/uL (0.1-1.30); MONOCYTES % (AUTO) 7.5 % (2.0-12.0); NEUTROPHILS # (AUTO) 5.4 K/uL (1.8-8.9); NEUTROPHILS % (AUTO) 79.8 % (43.0-81.0); PLATELET COUNT (AUTO) 279 K/uL (150-450); RED BLOOD CELL COUNT(AUTO) 2.69 MIL/uL (4.0-5.2); RED CELL DISTRIBUTION WIDTH 18.8 % (11.5-15.0); WHITE BLOOD COUNT (AUTO) 6.8 K/uL (4.3-11.0)
[2023-09-24 05:06] LABS: ALBUMIN 2.5 g/dL (3.4-5.0); BILIRUBIN,TOTAL 0.6 mg/dL (0.2-1.0); CALCIUM, SERUM 9.2 mg/dL (8.5-10.1); CREATININE 1.3 mg/dL (0.6-1.3); PHOSPHORUS 3.7 mg/dL (2.5-4.9); POTASSIUM 3.4 mmol/L (3.5-5.1); TOTAL PROTEIN, SERUM 5.5 g/dL (6.4-8.2)
[2023-09-24 07:58] LABS: ANISOCYTOSIS 1+; LYMPHOCYTES % (MANUAL) 5 % (16-48); MONOCYTES % (MANUAL) 6 % (0-11.0); NEUTROPHILS % (MANUAL) 89 (42-76); OVALOCYTES 1+; PLATELET ESTIMATE ADEQUATE
[2023-09-24] MEDS ORDERED: POTASSIUM CHLORIDE 20 MEQ TAB.PRT.SR PO ONE (08:00)
[2023-09-24] MEDS: PANTOPRAZOLE 40 MG VIAL IV SCH ×2 (08:11→21:06)
[2023-09-24] MEDS: ASPIRIN 81 MG TAB.CHEW PO SCH (08:11)
[2023-09-24] MEDS: AMLODIPINE BESYLATE 10 MG TABLET PO SCH (08:12)
[2023-09-24] MEDS ORDERED: BUMETANIDE INJ 16 MG in IV NS 0.9% 16 ML IV ONE (09:00)
[2023-09-24] MEDS ORDERED: POTASSIUM CHLORIDE 20 MEQ TAB.PRT.SR PO SCH (09:00)
[2023-09-24] MEDS: ENOXAPARIN SODIUM 30 MG/0.3 ML DISP.SYRIN SQ SCH (09:06)
[2023-09-24] MEDS: CEFEPIME 1 GM in IV D5W 50 ML IV SCH (10:53)
[2023-09-24] MEDS: SOD FERRIC GLUC 125 MG in IV NS 0.9% 100 ML IV SCH (14:34)
[2023-09-24] MEDS: ATORVASTATIN 40 MG TABLET PO SCH (21:05)
[2023-09-25] VITALS (18 sets, daily range): BP systolic 121–149; BP diastolic 47–97; TEMP 97.8–98.8; O2SAT 94–99
[2023-09-25] MEDS: CEFEPIME 1 GM in IV D5W 50 ML IV SCH ×2 (00:17→12:14)
[2023-09-25 03:57] LABS: BASOPHILS % (AUTO) 0.8 % (0.0-2.0); EOSINOPHILS # (AUTO) 0.3 K/uL (0.0-0.7); EOSINOPHILS % (AUTO) 5.6 % (0.0-6.0); HEMATOCRIT 27 % (33-45); LYMPHOCYTES # (AUTO) 0.4 K/uL (0.8-4.8); LYMPHOCYTES % (AUTO) 7.5 % (20.0-44.0); MEAN CORPUSCULAR HEMOGLOBIN 30 PG (26.0-33.0); MEAN CORPUSCULAR HGB CONC 33 g/dl (31.0-36.0); MEAN CORPUSCULAR VOLUME 92 fL (82-100); MONOCYTES # (AUTO) 0.5 K/uL (0.1-1.30); MONOCYTES % (AUTO) 8.8 % (2.0-12.0); NEUTROPHILS # (AUTO) 4.6 K/uL (1.8-8.9); NEUTROPHILS % (AUTO) 77.3 % (43.0-81.0); PLATELET COUNT (AUTO) 278 K/uL (150-450); RED BLOOD CELL COUNT(AUTO) 2.98 MIL/uL (4.0-5.2); RED CELL DISTRIBUTION WIDTH 17.7 % (11.5-15.0)
[2023-09-25 04:08] LABS: ALANINE AMINOTRANSFERASE 12 U/L (12-78); ALBUMIN 2.6 g/dL (3.4-5.0); ALKALINE PHOSPHATASE 101 U/L (46-116); ASPARTATE AMINOTRANSFERASE 12 U/L (15-37); BILIRUBIN,TOTAL 0.5 mg/dL (0.2-1.0); CALCIUM, SERUM 9.3 mg/dL (8.5-10.1); CARBON DIOXIDE 31 mmol/L (21-32); CHLORIDE 101 mmol/L (98-107); CREATININE 1.3 mg/dL (0.6-1.3); GLUCOSE 96 mg/dL (74-106); MAGNESIUM 1.7 mg/dL (1.8-2.4); PHOSPHORUS 3.1 mg/dL (2.5-4.9); POTASSIUM 3.6 mmol/L (3.5-5.1); SODIUM SERUM 141 mmol/L (136-145); UREA NITROGEN, BLOOD 27 mg/dL (7-18)
[2023-09-25] MEDS ORDERED: MAGNESIUM OXIDE 400 MG TABLET PO ONE ×2 (08:30→10:00)
[2023-09-25] MEDS: AMLODIPINE BESYLATE 10 MG TABLET PO SCH (08:49)
[2023-09-25] MEDS: ASPIRIN 81 MG TAB.CHEW PO SCH (08:49)
[2023-09-25] MEDS: ENOXAPARIN SODIUM 30 MG/0.3 ML DISP.SYRIN SQ SCH (08:51)
[2023-09-25] MEDS: PANTOPRAZOLE 40 MG VIAL IV SCH (08:53)
[2023-09-25] MEDS ORDERED: BUMETANIDE INJ 16 MG in IV NS 0.9% 16 ML IV ONE (09:30)
[2023-09-25] MEDS: POTASSIUM CHLORIDE 20 MEQ TAB.PRT.SR PO SCH ×3 (09:53→12:47)
[2023-09-25 10:07] LABS: CALCIUM, SERUM 9.7 mg/dL (8.5-10.1); CARBON DIOXIDE 33 mmol/L (21-32); CHLORIDE 100 mmol/L (98-107); CREATININE 1.3 mg/dL (0.6-1.3); GLUCOSE 96 mg/dL (74-106); POTASSIUM 4.2 mmol/L (3.5-5.1); SODIUM SERUM 140 mmol/L (136-145); UREA NITROGEN, BLOOD 27 mg/dL (7-18)
[2023-09-25] MEDS: SOD FERRIC GLUC 125 MG in IV NS 0.9% 100 ML IV SCH (14:00)
[2023-09-26] MEDS ORDERED: PEG 3350/NA SULF,BICARB,CL/KCL 4,000 ML BOTTLE PO SCH (07:00)
[2023-09-26] MEDS ORDERED: ENSURE ENLIVE 237 ML LIQUID (VANILLA) PO SCH (09:00)
== END 2023-09-25 14:45 | disposition left against medical advice (07) | DRG 377 ==
LOC: ER 10:20 → ICU 18:38 → TELE1 09-25 10:03
PROVIDERS: ADMIT Nurse Practitioner Acute Care; ATTEND Nurse Practitioner Family
PROC: 30233N1 Transfusion of Nonautologous Red Blood Cells into Peripheral Vein, Percutaneous Approach (ICD-10-PCS; 2023-09-20)
PROC: 0DB98ZX Excision of Duodenum, Via Natural or Artificial Opening Endoscopic, Diagnostic (ICD-10-PCS; principal; 2023-09-21)
DX: K29.71 Gastritis, unspecified, with bleeding (principal); I50.33 Acute on chronic diastolic (congestive) heart failure; N17.0 Acute kidney failure with tubular necrosis; J96.01 Acute respiratory failure with hypoxia; J69.0 Pneumonitis due to inhalation of food and vomit; I13.0 Hypertensive heart and chronic kidney disease with heart failure and stage 1 through stage 4 chronic kidney disease, or unspecified chronic kidney disease; D62 Acute posthemorrhagic anemia; I69.351 Hemiplegia and hemiparesis following cerebral infarction affecting right dominant side; I48.20 Chronic atrial fibrillation, unspecified; D68.69 Other thrombophilia; J90 Pleural effusion, not elsewhere classified; J98.11 Atelectasis; I25.10 Atherosclerotic heart disease of native coronary artery without angina pectoris; N18.9 Chronic kidney disease, unspecified; D72.829 Elevated white blood cell count, unspecified; E78.5 Hyperlipidemia, unspecified; N28.1 Cyst of kidney, acquired; K64.4 Residual hemorrhoidal skin tags; Z79.01 Long term (current) use of anticoagulants; Z79.899 Other long term (current) drug therapy; Z20.822 Contact with and (suspected) exposure to COVID-19; Z74.09 Other reduced mobility; I73.9 Peripheral vascular disease, unspecified; F50.9 Eating disorder, unspecified
CPT/HCPCS: 36415; 36600; 71045-TC; 76770-TC; 80048-TC; 80053-TC; 80061-TC; 80076-TC; 81001; 82272-TC; 82607-TC; 82803-TC; 83540-TC; 83735-TC; 83880; 84100-TC; 84443-TC; 84484-TC; 85025-TC; 85027-TC; 85730-TC; 86850-TC; 87040-TC; 87081-TC; 93307-TC; 94799-TC; A4223; C9113; C9803; G0378; J0692; J1650; J1940; J2405; J2916; J3480; J3490; J7030; J7040; J7050; J7060; P9016; P9045

== ENCOUNTER 2024-06-16 01:26 | Inpatient (IN) | payer MEDICARE, OTHER ==
[~2024-06-16] VITALS: Ht 152.4 cm; Wt 63.5 kg
[~2024-06-16 01:26] MED LIST changes: +AMLO10TA4 PO; +APIX2.5T PO; +ASPI-1169 PO; +ATOR80TA PO; +BENZ200C53 PO; +BUME0.5T6 PO; +CARV3.12 PO; +FERR324T PO; -FERR325T28 PO; -FURO-144 PO; -GABA-532 PO; +HYDR-4077 PO; +LOSA25TA27 PO; -LOSA50TA39 PO; -MAGN400T8 PO; +PANT40TA2 PO; -PANT40TA49 PO; +POLY17PO4 PO; -POTA8TAB3 PO; -SPIR25TA6 PO
[2024-06-16 02:40] LABS: BASOPHILS % (AUTO) 0.6 % (0.0-2.0); EOSINOPHILS # (AUTO) 0.3 K/uL (0.0-0.7); EOSINOPHILS % (AUTO) 4.6 % (0.0-6.0); HEMATOCRIT 33 % (33-45); HEMOGLOBIN 10.7 g/dL (11.5-14.8); LYMPHOCYTES # (AUTO) 1.6 K/uL (0.8-4.8); LYMPHOCYTES % (AUTO) 22.8 % (20.0-44.0); MEAN CORPUSCULAR HEMOGLOBIN 29 PG (26.0-33.0); MEAN CORPUSCULAR HGB CONC 32 g/dl (31.0-36.0); MEAN CORPUSCULAR VOLUME 89 fL (82-100); MONOCYTES % (AUTO) 14.6 % (2.0-12.0); NEUTROPHILS # (AUTO) 4.1 K/uL (1.8-8.9); NEUTROPHILS % (AUTO) 57.4 % (43.0-81.0); PLATELET COUNT (AUTO) 289 K/uL (150-450); RED BLOOD CELL COUNT(AUTO) 3.74 MIL/uL (4.0-5.2); RED CELL DISTRIBUTION WIDTH 17.2 % (11.5-15.0); WHITE BLOOD COUNT (AUTO) 7.2 K/uL (4.3-11.0)
[2024-06-16 02:59] LABS: APPEARANCE,URINE CLEAR (CLEAR); BILIRUBIN,URINE NEGATIVE (NEGATIVE); BLOOD, URINE NEGATIVE Ery/uL (NEGATIVE); COLOR,URINE YELLOW (YELLOW); KETONES,URINE NEGATIVE (NEGATIVE); LEUKOCYTE ESTERASE ,URINE NEGATIVE (NEGATIVE); NITRITE, URINE NEGATIVE (NEGATIVE); PROTEIN,URINE NEGATIVE (NEGATIVE); UGLUCOSE NEGATIVE (NEGATIVE); UROBILINOGEN,URINE 0.2 EU/dL (0.2)
[2024-06-16 03:11] LABS: CALCIUM, SERUM 9.7 mg/dL (8.5-10.1); CARBON DIOXIDE 23 mmol/L (21-32); CHLORIDE 105 mmol/L (98-107); CREATININE 1.7 mg/dL (0.6-1.3); GLUCOSE 121 mg/dL (74-106); INR 1.1 (0.91-1.10); PARTIAL THROMBOPLASTIN TIME 28.8 SEC (24.3-34.3); POTASSIUM 4.4 mmol/L (3.5-5.1); PROTHROMBIN TIME 11.6 SECS (9.2-11.1); SODIUM SERUM 141 mmol/L (136-145); UREA NITROGEN, BLOOD 55 mg/dL (7-18)
[2024-06-16 03:13] LABS: D-DIMER 1.3 mg/L(FEU (0.17-0.50)
[2024-06-16 03:23] LABS: ALANINE AMINOTRANSFERASE 18 U/L (12-78); ALBUMIN 3.3 g/dL (3.4-5.0); ALKALINE PHOSPHATASE 148 U/L (46-116); ASPARTATE AMINOTRANSFERASE 16 U/L (15-37); BILIRUBIN,DIRECT 0.1 mg/dL (0.0-0.2); BILIRUBIN,TOTAL 0.4 mg/dL (0.2-1.0); NT-PRO BNP 3713 pg/mL (0-125); TOTAL PROTEIN, SERUM 7.5 g/dL (6.4-8.2)
[2024-06-16] MEDS: FUROSEMIDE 40 MG/4 ML VIAL IV ONE (04:30)
[2024-06-16] MEDS ORDERED: FUROSEMIDE 40 MG/4 ML VIAL ONE (04:31)
[2024-06-16] MEDS ORDERED: MAG HYDROX/AL HYDROX/SIMETH 30 ML UDC PO PRN (05:30)
[2024-06-16] MEDS ORDERED: ACETAMINOPHEN 325 MG TABLET PO PRN (05:30)
[2024-06-16] MEDS ORDERED: MAGNESIUM HYDROXIDE 30 ML UDC PO PRN (05:30)
[2024-06-16] MEDS ORDERED: Z GUARD REMEDY 4 OZ OINT TP PRN (05:30)
[2024-06-16] MEDS ORDERED: ZOLPIDEM TARTRATE 5 MG TABLET PO PRN (05:30)
[2024-06-16] MEDS ORDERED: ONDANSETRON HCL/PF 4 MG/2 ML VIAL IVP PRN (05:30)
[2024-06-16] MEDS ORDERED: NITROGLYCERIN PACKET 1 GM PACKET TOP PRN (06:00)
[2024-06-16 07:32] LABS: BASOPHILS # (AUTO) 0.1 K/uL (0.0-0.2); EOSINOPHILS # (AUTO) 0.3 K/uL (0.0-0.7); EOSINOPHILS % (AUTO) 5.4 % (0.0-6.0); HEMATOCRIT 31 % (33-45); HEMOGLOBIN 10.3 g/dL (11.5-14.8); LYMPHOCYTES # (AUTO) 1.2 K/uL (0.8-4.8); LYMPHOCYTES % (AUTO) 19.9 % (20.0-44.0); MEAN CORPUSCULAR HEMOGLOBIN 28 PG (26.0-33.0); MEAN CORPUSCULAR HGB CONC 33 g/dl (31.0-36.0); MEAN CORPUSCULAR VOLUME 85 fL (82-100); MONOCYTES # (AUTO) 0.8 K/uL (0.1-1.30); MONOCYTES % (AUTO) 13.2 % (2.0-12.0); NEUTROPHILS # (AUTO) 3.8 K/uL (1.8-8.9); NEUTROPHILS % (AUTO) 60.5 % (43.0-81.0); PLATELET COUNT (AUTO) 286 K/uL (150-450); RED BLOOD CELL COUNT(AUTO) 3.64 MIL/uL (4.0-5.2); RED CELL DISTRIBUTION WIDTH 16.7 % (11.5-15.0); WHITE BLOOD COUNT (AUTO) 6.2 K/uL (4.3-11.0)
[2024-06-16] MEDS: PANTOPRAZOLE 40 MG TABLET.DR PO SCH (07:39)
[2024-06-16 08:00] VITALS: BP 153/48; TEMP 97.7; O2SAT 99
[2024-06-16 08:10] LABS: ALANINE AMINOTRANSFERASE 23 U/L (12-78); ALBUMIN 3.1 g/dL (3.4-5.0); ALKALINE PHOSPHATASE 141 U/L (46-116); ASPARTATE AMINOTRANSFERASE 17 U/L (15-37); BILIRUBIN,DIRECT 0.2 mg/dL (0.0-0.2); BILIRUBIN,TOTAL 0.5 mg/dL (0.2-1.0); CALCIUM, SERUM 9.5 mg/dL (8.5-10.1); CARBON DIOXIDE 29 mmol/L (21-32); CHLORIDE 105 mmol/L (98-107); CREATININE 1.5 mg/dL (0.6-1.3); GLUCOSE 122 mg/dL (74-106); MAGNESIUM 1.7 mg/dL (1.8-2.4); PHOSPHORUS 4.1 mg/dL (2.5-4.9); POTASSIUM 4.1 mmol/L (3.5-5.1); SODIUM SERUM 143 mmol/L (136-145); TOTAL PROTEIN, SERUM 7.1 g/dL (6.4-8.2); UREA NITROGEN, BLOOD 49 mg/dL (7-18)
[2024-06-16] MEDS ORDERED: SPIR25TA PO (09:09)
[2024-06-16] MEDS ORDERED: HYDR-4076 PO (09:09)
[2024-06-16] MEDS ORDERED: ACET-2812 PO (09:09)
[2024-06-16] MEDS ORDERED: DEXL60CA3 PO (09:09)
[2024-06-16] MEDS ORDERED: COLC0.6T67 PO (09:09)
[2024-06-16] MEDS ORDERED: GABA300C PO (09:09)
[2024-06-16] MEDS ORDERED: FURO-144 PO (09:09)
[2024-06-16] MEDS ORDERED: POTA10CA43 PO (09:09)
[2024-06-16] MEDS ORDERED: ICOS1CAP PO (09:09)
[2024-06-16] MEDS: VANCOMYCIN 1 GM in IV D5W 250ml IV ONE (09:57)
[2024-06-16] MEDS: ENOXAPARIN SODIUM 30 MG/0.3 ML DISP.SYRIN SQ SCH (10:00)
[2024-06-16] MEDS ORDERED: Medication Not On Formulary EA (Icosapent Ethyl (Vascepa) 2 GM) PO SCH (10:00)
[2024-06-16] MEDS: Magnesium 1GM/D5W 100ML PREMIX 100 ML IV SCH (10:07)
[2024-06-16] MEDS: GABAPENTIN 300 MG CAPSULE PO SCH (10:24)
[2024-06-16] MEDS: SPIRONOLACTONE 25 MG TABLET PO SCH (10:24)
[2024-06-16] MEDS: ATORVASTATIN 40 MG TABLET PO SCH (10:25)
[2024-06-16] MEDS: COLCHICINE 0.6 MG TABLET PO SCH (10:25)
[2024-06-16] MEDS: VANCOMYCIN 500 MG in IV D5W 100ml IV ONE (10:47)
[2024-06-16 16:00] VITALS: BP 145/60; TEMP 97.7; O2SAT 95
[2024-06-16] MEDS ORDERED: FUROSEMIDE 20 MG/2 ML VIAL IV SCH (17:00)
[2024-06-16] MEDS: hydrALAZINE HCL 25 MG TABLET PO SCH (17:40)
[2024-06-16 20:09] VITALS: BP 212/98; TEMP 99; O2SAT 100
[2024-06-16] MEDS: DILTIAZEM HCL 25 MG IV IV ONE (20:58)
[2024-06-16] MEDS: PERMETHRIN 5% CRM 60 GM TUBE TP ONE (22:55)
[2024-06-16 23:12] VITALS: O2SAT 88
[2024-06-16 23:15] VITALS: BP 177/65; TEMP 98.4; O2SAT 94
[2024-06-17] VITALS (14 sets, daily range): BP systolic 142–218; BP diastolic 59–123; TEMP 97.5–98.6; O2SAT 96–100
[2024-06-17 07:04] LABS: CALCIUM, SERUM 10.4 mg/dL (8.5-10.1); CARBON DIOXIDE 25 mmol/L (21-32); CHLORIDE 104 mmol/L (98-107); CREATININE 1.4 mg/dL (0.6-1.3); GLUCOSE 154 mg/dL (74-106); SODIUM SERUM 142 mmol/L (136-145); UREA NITROGEN, BLOOD 40 mg/dL (7-18)
[2024-06-17] MEDS ORDERED: IOHEXOL-350 100 ML VIAL IV ONE (09:16)
[2024-06-17] MEDS ORDERED: IV NS 0.9% 250 ML IV ONE (09:17)
[2024-06-17] MEDS: BLOOD SUGAR DIAGNOSTIC 1 EACH STRIP IN SCH ×2 (09:30→12:15)
[2024-06-17 10:18] LABS: ABG BASE EXCESS -1.9 mmol/L (-2.0-2.0); ABG OXYGEN SATURATION 97.3 % (92.0-98.5); ABG PCO2 28.6 mmHg (35.0-45.0); ABG PH 7.478 (7.350-7.450); ABG TOTAL HEMOGLOBIN 11.4 G/dL (12.0-16.0); AaDO2 99.7 mmHg; COHb 0.3 % (0.5-1.5); MetHb 0.3 % (0.0-1.5); O2Hb 96.7 % (94.0-97.0); SITE, ABG Left Radial; VENT MODE, BG 3 LPM NC
[2024-06-17] MEDS ORDERED: PROPOFOL 100 ML IV PRN (11:30)
[2024-06-17] MEDS ORDERED: VANCOMYCIN 750 MG in IV D5W 250 ML IV SCH (12:00)
[2024-06-17] MEDS ORDERED: CEFEPIME 1 GM in IV D5W 50 ML IV SCH (12:00)
[2024-06-17] MEDS ORDERED: ETOMIDATE 2 MG/ML VIAL IV ONE (13:26)
[2024-06-17] MEDS ORDERED: VANCOMYCIN 1 GM in IV D5W 250ml IV SCH (22:00)
== END 2024-06-17 15:27 | disposition short-term general hospital (02) | DRG 606 ==
LOC: ER 01:30 → TELE 05:08 → MED 17:47 → TELE 06-17 → ICU 06-17 10:15
PROVIDERS: ADMIT Nurse Practitioner Family; ATTEND Nurse Practitioner Family
PROC: 5A1935Z Respiratory Ventilation, Less than 24 Consecutive Hours (ICD-10-PCS; principal; 2024-06-17)
PROC: 0BH17EZ Insertion of Endotracheal Airway into Trachea, Via Natural or Artificial Opening (ICD-10-PCS; 2024-06-17)
DX: B86 Scabies (principal); I63.511 Cerebral infarction due to unspecified occlusion or stenosis of right middle cerebral artery; E44.1 Mild protein-calorie malnutrition; I13.0 Hypertensive heart and chronic kidney disease with heart failure and stage 1 through stage 4 chronic kidney disease, or unspecified chronic kidney disease; I69.351 Hemiplegia and hemiparesis following cerebral infarction affecting right dominant side; N17.9 Acute kidney failure, unspecified; G93.40 Encephalopathy, unspecified; L03.115 Cellulitis of right lower limb; I50.9 Heart failure, unspecified; I48.91 Unspecified atrial fibrillation; Z79.01 Long term (current) use of anticoagulants; E78.5 Hyperlipidemia, unspecified; N18.9 Chronic kidney disease, unspecified; R29.737 NIHSS score 37; K21.9 Gastro-esophageal reflux disease without esophagitis; M19.90 Unspecified osteoarthritis, unspecified site; L29.9 Pruritus, unspecified; Z79.899 Other long term (current) drug therapy; I25.10 Atherosclerotic heart disease of native coronary artery without angina pectoris; E88.09 Other disorders of plasma-protein metabolism, not elsewhere classified; E04.2 Nontoxic multinodular goiter; D63.8 Anemia in other chronic diseases classified elsewhere; Z98.890 Other specified postprocedural states; Z79.82 Long term (current) use of aspirin; R21 Rash and other nonspecific skin eruption; T18.128A Food in esophagus causing other injury, initial encounter; W44.F3XA Food entering into or through a natural orifice, initial encounter; Y92.230 Patient room in hospital as the place of occurrence of the external cause
CPT/HCPCS: 36415; 36600; 70450-TC; 70496-TC; 70498-TC; 71045-TC; 78582; 80048-TC; 80076-TC; 82803-TC; 82962-TC; 83735-TC; 83880; 84100-TC; 84443-TC; 84484-TC; 85025-TC; 85378-TC; 85385-TC; 85730-TC; 93307-TC; 93970-TC; 94002-TC; 94799-TC; A4223; A9540; A9548; G0378; J0330; J0692; J1650; J1940; J3370; J3371; J3475; J3490; J7030; J7050; J7060; Q9967